=== PATIENT | male | born 1950 | race Caucasian/White ===

== ENCOUNTER 2024-04-06 13:22 | Outpatient (CLI) | payer MEDICARE, SELFPAY ==
--- NOTE | ~2024-04-06 | XR_ITS ---
EXAMINATION: XR knee LT min 4V DATE: 04/06/2024 13:56 INDICATION: Left knee pain. TECHNIQUE: 4 views of left knee including standing views were obtained. COMPARISON: None. FINDINGS: Alignment is normal. No fracture. There is moderate osteoarthritis of medial compartment an d mild osteoarthritis of lateral and patellofemoral compartments. There is a small knee joint effusio n. IMPRESSION: 1. Moderate left knee osteoarthritis. 2. Small left knee joint effusion. Reviewed, dictated and finalized at location A. CLERK
== END 2024-04-06 13:23 | disposition home or self-care (01) ==
PROVIDERS: PCP Internal Medicine; Visit Provider Orthopaedic Surgery
DX: M17.12 Unilateral primary osteoarthritis, left knee (principal); M25.462 Effusion, left knee
CPT/HCPCS: 73564

== ENCOUNTER 2024-07-16 10:15 | Outpatient (CLI) | payer MEDICARE, SELFPAY ==
--- OUTSIDE RECORDS SUMMARY | 2024-07-16 11:38 | XMS_ITS | Referral Summary ---
Author Organization [facility] Address [address] [place] [address] Care Team Providers Care Maintenance Analyst Name Role Phone Chapito Galvez MD Primary Care Provider + [phone] Allergies Active Allergy Reactions Criticality Noted Date Comments Adhesive Blisters,Redness High 09/02/2017 bli Latex, Natural Rubber 11/24/2018 Added based on information entered during case entry, please review and add reactions, type, and severity as needed Morphine Anxiety,Other (See comments) Low 09/30/2015 [place] Heat all over my body Medications blood glucose diagnostic (TRUE METRIX GLUCOSE TEST STRIP) strip Test once daily. DX E11.9 8 Active zolpidem (AMBIEN) 5 mg tabletIndicatio ns:Sleep-Onset Insomnia Take 5 mg by mouth nightly as needed 8 Active alogliptin 25 mg tabletIndicatio ns:type 2 diabetes mellitus every morning 9 Active propranolol XL (INNOPRAN XL) 80 mg 24 hr capsuleIndicati ons:hypertensio n Take 80 mg by mouth nightly 0 Active metFORMIN (GLUCOPHAGE) 500 mg tabletIndicatio ns:type 2 diabetes mellitus TAKE ONE TABLET BY MOUTH TWICE A DAY WITH FOOD 0 Active losartan (COZAAR) 100 mg tabletIndicatio ns:hypertension Take 100 mg by mouth nightly 0 Active chlorthalidone 25 mg tabletIndicatio ns:hypertension Take 25 mg by mouth every morning 0 Active blood glucose diagnostic strip Test once daily. DX E11.9 8 Active glimepiride (AMARYL) 1 mg tabletIndicatio ns:type 2 diabetes mellitus Take 1 mg by mouth leadership development manager before breakfast 0 Active aspirin 81 mg enteric coated tabletIndicatio ns:prevention of thrombosis Take 1 tablet (81 mg total) by mouth daily 90 tablet 1 Active atorvastatin (LIPITOR) 40 mg tabletIndicatio ns:coronary artery disease Take 1 tablet (40 mg total) by mouth nightly 90 tablet 1 Active clopidogreL (PLAVIX) 75 mg tablet Take 1 tablet (75 mg total) by mouth daily 90 tablet 1 Active Active Problems Problem Noted Date Diagnosed Date Chest pain 09/27/2020 Assessment & Plan (09/30/2020 8:57 AM CDT): Atypical in nature, ECG, trops unremarkable. - +Stress ECHO 09/27 - no tele events, CTM - Appreciate Cards recs: added asa 81mg, changed pravastatin to atorva 40mg daily - C on 09/29 with NESSA to LAD - Pt will dc on ASA, plavix, and atorva - Cards follow-up scheduled Assessment & Plan (09/29/2020 9:11 AM CDT): Atypical in nature, ECG, trops unremarkable. - +Stress ECHO 09/27 - no tele events, CTM - Appreciate Cards recs: added asa 81mg, changed pravastatin to atorva 40mg daily - NPO for [facility] today Assessment & Plan (09/28/2020 9:44 AM CDT): -atypical in nature ECG, trops unremarkable +Stress ECHO yesterday -chest pain again overnight, self limiting -no tele events, CTM -Appreciate Cards recs: added asa 81mg, changed pravastatin to atorva 40mg daily -NPO tonight for [facility] in am DMII (diabetes mellitus, type 2) 09/27/2020 Assessment & Plan (09/30/2020 8:56 AM CDT): Last A1c 7.1% - holding orals while inpatient - extra low dose SSI ordered with meals Assessment & Plan (09/29/2020 9:12 AM CDT): Last A1c 7.1% - holding orals while inpatient - extra low dose SSI ordered with meals Assessment & Plan (09/28/2020 9:42 AM CDT): Last A1c 7.1% -holding orals while inpatient POC glucose WNL-add LDSSI if needed HTN (hypertension) 09/27/2020 Assessment & Plan (09/30/2020 8:56 AM CDT): Cont losartan held propranolol for stress test. Resume at discharge - Held diuretics for cath. Resume at discharge Assessment & Plan (09/29/2020 9:13 AM CDT): Cont losartan held propranolol for stress test - hold diuretic today for cath Assessment & Plan (09/28/2020 9:43 AM CDT): Cont losartan held propranolol for stress test -will hold diuretic tomorrow for cath Hyperlipidemia 09/27/2020 Assessment & Plan (09/30/2020 8:56 AM CDT): -gemfibrozil and pravastatin->changed to high intensity atorva 40mg daily Assessment & Plan (09/29/2020 9:19 AM CDT): -gemfibrozil and pravastatin->changed to high intensity atorva 40mg daily Assessment & Plan (09/28/2020 9:43 AM CDT): -gemfibrozil and pravastatin->changed to high intensity atorva 40mg daily Acute chest pain 09/26/2020 Overview (09/29/2020): Added automatically from request for surgery [id number] Otosclerosis of right ear 04/04/2020 Overview (04/04/2020): Added automatically from request for surgery [id number] Assessment & Plan (05/09/2020 11:53 AM AUTOMATIC CORN GRINDER OPERATOR): Doing well. RTC 3 mos with audio. Consider amplification depending on audio result. Otorrhea of left ear 11/21/2018 Assessment & Plan (11/21/2018 2:27 PM CDT): Left ear tube removed. RTC prior to surgery to ensure the TM is healed. Ciprodex one week. Mixed conductive and sensorineural hearing loss, bilateral 06/27/2018 Assessment & Plan (03/30/2019 12:26 PM AUTOMATIC CORN GRINDER OPERATOR): His ear fullness is much improved in his hearing is much better on the left. Return to clinic in 1 year with an audiogram. He may consider stapes surgery on the right side in the future Assessment & Plan (12/01/2018 10:36 AM CDT): Left otorrhea resolved. Tm healed. Ok for left stapes surgery on Tuesday. Otosclerosis I discussed otosclerosis with the patient. This is a disorder of bone remodeling that causes impaired movement of the 3rd middle ear bone(stapes). The problem is primarily mechanical and can be addressed by removing the stapes and replacing it with a prosthesis. The operation is successful 90-95% of the time, but there are risks. Profound sensorineural hearing loss is rare (1%) but serious. Other risks include ear drum perforation, facial nerve weakness and taste disturbance(chorda tympani). Taste disturbance is often temporary but can last for several months. The repair is meant to last lifelong, but hearing loss due to nerve hearing loss can still occur. Initial hearing will be muffled with packing in place and the final hearing result is usually not known until 10-12 weeks after the surgery. Imbalance after the surgery is common for several days. Severe vertigo or profound hearing loss should prompt a call to the office. Alternatives include observation and hearing aids. Assessment & Plan (09/13/2018 2:46 PM CDT): Left ear tube placed- no fluid. Will observe for next several weeks- may be otosclerosis. Assessment & Plan (09/11/2018 12:11 PM CDT): Plan left stapes surgery. Otosclerosis I discussed otosclerosis with the patient. This is a disorder of bone remodeling that causes impaired movement of the 3rd middle ear bone(stapes). The problem is primarily mechanical and can be addressed by removing the stapes and replacing it with a prosthesis. The operation is successful 90-95% of the time, but there are risks. Profound sensorineural hearing loss is rare (1%) but serious. Other risks include ear drum perforation, facial nerve weakness and taste disturbance(chorda tympani). Taste disturbance is often temporary but can last for several months. The repair is meant to last lifelong, but hearing loss due to nerve hearing loss can still occur. Initial hearing will be muffled with packing in place and the final hearing result is usually not known until 10-12 weeks after the surgery. Imbalance after the surgery is common for several days. Severe vertigo or profound hearing loss should prompt a call to the office. Alternatives include observation and hearing aids. Tinnitus, bilateral 06/27/2018 Social History Tobacco Use Types Packs/Day Years Used Date Smoking Tobacco: Never Smokeless Tobacco: Never Alcohol Use Standard Drinks/Week Comments Yes 2 (1 standard drink = 0.6 oz pur e alcohol) AUDIT-C Answer Date Recorded Q1: How often do you have a drink containing alc ohol? Monthly or less 09/29/2020 Q2: How many drinks containi ng alcohol do you have on a typical day when you are drinking? 1 or 2 09/29/2020 Q3: How often do you have si x or more drinks on one occasion? Less than monthly 09/29/2020 Sex and Gender Information Value Date Recorded Sex Assigned at Not on file Legal Sex Male 12:57 PM AUTOMATIC CORN GRINDER OPERATOR Gender Identity Not on file Sexual Orientation Not on file Last Filed Vital Signs Vital Sign Reading Time Taken Comments Blood Pressure 152/95 09/30/2020 12:01 PM CDT Pulse 90 09/30/2020 12:01 PM CDT Temperature 36.3 C (97.3 F) 09/30/2020 11:00 AM CDT Respiratory Rate 20 09/30/2020 12:0 1 PM CDT Oxygen Saturation 96% 09/30/2020 12: 01 PM CDT Inhaled Oxygen Concentration - - Weight 104.7 kg (230 lb 14.4 oz) 09/29/2020 7:50 PM CDT Height 177.8 cm (5' 10 ) 09/27/2020 9:10 AM CDT Body Mass Index 33.13 09/27/2020 9:10 AM CDT Plan of Treatment Not on file Medical Devices Implanted Type Area Gym Instructor Device Identifier Shelf Expiration Date Model / Serial / Lot Daig Chris[employer] [id number] Angio-Seal Evolution 6fr .035in Guidewire Bypass Tube Suture - [id number] - [id number] Implanted:Qty: 1 on 09/29/[address] MD at [facility] Collagen [employer] Chris 06/22/2021 [id number] / [id number] / [id number] Medtronic Usa [employer] X [id number] Resolute [place] 3mm 2.1-2.7fr 34mm 140cm Rapid Exchange Radiopaque - [id number] - [id number] Implanted:Qty: 1 on 09/29/[address] MD at [facility] Stent Medtronic Inc 07/19/2022 [id number] / [id number] / [id number] [facility] 468-450 Eclipse .6mm 4.5mm Piston Otology Nitinol Fluoroplastic - [id number] Implanted:Qty: 1 on 12/04/2018 by Tr Sharp MD at [facility] Left: Stapes [facility] [id number] 11/18/2023 468-450 / / [id number] Implantech -700-05 Alliedsil 3x2in Nonreinforced Permanent Implantable Thk.005in - [id number] Implanted:Qty: 1 on 12/04/2018 by Tr Sharp MD at [facility] Left: Ear Implantech 04/06/2023-700-0 5 / / [id number] [facility] 473-450 Piston Otology 5mm .5mm Eclipse 360d Incus Wide Flat Ribbon - [id number] Implanted:Qty: 1 on 04/28/2020 by Tr Sharp MD at [facility] Right: [facility] [id number] 07/20/2024 [facility]-607 / / [id number] Insurance [facility]ICARE [facility] [place] [id number] MEDICARE [facility] SUPPLEMENT [place] [address] Advance Directives For more information, please contact: [phone] * Full Code (Latest Code Status on File) Date Activated Date Inactivated Comments 09/27/2020 1:00 AM 09/30/2020 4:13 PM Care Teams Maintenance Analyst Relationship Specialty Start Date End Date Chapito Galvez MD 2 [facility] [address] [address] PCP - General 08/03/16
--- OUTSIDE RECORDS SUMMARY | 2024-07-16 11:38 | XMS_ITS | Clinical Summary ---
Author Organization [facility] Address [address] [place] [address] Care Team Providers Care Central Office Maintainer Name Role Phone Chapito Galvez MD Primary Care Provider + [phone] Allergies Active Allergy Reactions Criticality Noted Date Comments Adhesive Blisters,Redness High 09/02/2017 bli Latex, Natural Rubber 11/24/2018 Added based on information entered during case entry, please review and add reactions, type, and severity as needed Morphine Anxiety,Other (See comments) Low 09/30/2015 [place] Heat all over my body Medications blood [...] diabetes mellitus Take 1 mg by mouth seismograph operator helper before breakfast 0 Active aspirin 81 mg [...] to atorva 40mg daily - NPO for [facility] today Assessment & Plan (09/28/2020 9:44 AM CDT): -atypical in nature ECG, trops unremarkable +Stress ECHO yesterday -chest pain again overnight, self limiting -no tele events, CTM -Appreciate Cards recs: added asa 81mg, changed pravastatin to atorva 40mg daily -NPO tonight for [facility] in am DMII (diabetes mellitus, type 2) [...] (09/29/2020): Added automatically from request for surgery [id number] Otosclerosis of right ear 04/04/2020 Overview (04/04/2020): Added automatically from request for surgery [id number] Assessment & Plan (05/09/2020 11:53 AM ASSISTANT DIRECTOR OF ADMISSIONS): Doing well. RTC 3 mos with audio. Consider amplification depending on audio result. Otorrhea of left ear 11/21/2018 Assessment & Plan (11/21/2018 2:27 PM CDT): Left ear tube removed. RTC prior to surgery to ensure the TM is healed. Ciprodex one week. Mixed conductive and sensorineural hearing loss, bilateral 06/27/2018 Assessment & Plan (03/30/2019 12:26 PM ASSISTANT DIRECTOR OF ADMISSIONS): His ear fullness is much improved in [...] observation and hearing aids. Tinnitus, bilateral 06/27/2018 Surgical History Surgery Date Site/Laterality Comments ROTATOR CUFF REPAIR Rotator Cuff Repair - (Added by R-B Acquisition Conv) [place] TRURL ELECTROSURG RESCJ PROSTATE BLEED COMPLETE Transurethral Resection Of Prostate (TURP) - (Added by R-B Acquisition Conv) REPLACEMENT TOTAL KNEE 05/23/2016 - 05/22/2017 Right Partial knee replacement Medical History Medical History Date Comments Personal history of other di seases of the circulatory system History of hypertension - (A dded by R-B Acquisition Conv) Personal history of other me ntal and behavioral disorders History of depression - (Add ed by TW Conv) Hypertension Hypercholesterolemia Diabetes (HCC) Ear problems [place] (hearing loss) Tinnitus [place] (hard of hearing) Type 2 diabetes mellitus (HCC) Family History Medical History Relation Name Comments Prostate cancer Brother Prostate Can cer - (Added by R-B Acquisition Conv) Anesthesia problems Neg Hx Relation Name Status Comments Brother Social History Tobacco Use Types Packs/Day Years [...] on file Legal Sex Male 12:57 PM ASSISTANT DIRECTOR OF ADMISSIONS Gender Identity Not on file Sexual Orientation Not on file Obstetrics History Last Filed Vital Signs Vital Sign Reading [...] on file Medical Devices Implanted Type Area Service Promoter Salesperson Device Identifier Shelf Expiration Date Model / Serial / Lot Daig Chris[employer] [id number] Angio-Seal Evolution 6fr .035in Guidewire Bypass Tube Suture - [id number] - [id number] Implanted:Qty: 1 on 09/29/[address] MD at [facility] Collagen [employer] Chris 06/22/2021 [id number] / [id number] / [id number] Medtronic Usa [employer] X [id number] Resolute [place] 3mm 2.1-2.7fr 34mm 140cm Rapid Exchange Radiopaque - [id number] - [id number] Implanted:Qty: 1 on 09/29/[address] MD at [facility] Stent Medtronic Inc 07/19/2022 [id number] / [id number] / [id number] [facility] 468-450 Eclipse .6mm 4.5mm Piston Otology Nitinol Fluoroplastic - [id number] Implanted:Qty: 1 on 12/04/2018 by Tr Sharp MD at [facility] Advanced [employer] Left: Stapes [facility] [id number] 11/18/2023 468-450 / / [id number] Implantech -700-05 Alliedsil 3x2in Nonreinforced Permanent Implantable Thk.005in - [id number] Implanted:Qty: 1 on 12/04/2018 by Tr Sharp MD at [facility] Left: Ear Implantech 04/06/2023-700-0 5 / / [id number] [facility] 473-450 Piston Otology 5mm .5mm Eclipse 360d Incus Wide Flat Ribbon - [id number] Implanted:Qty: 1 on 04/28/2020 by Tr Sharp MD at [facility] Right: Ear [employer] [id number] 07/20/2024 473-450 / / [id number] Insurance MEDICARE [facility] Address: [address] [address] [place] [address] [facility] SUPPLEMENT [place] [id number] MEDICARE [facility] SUPPLEMENT [place] [id number] Advance Directives For more information, please contact: [phone] * Full Code (Latest Code Status on File) Date Activated Date Inactivated Comments 09/27/2020 1:00 AM 09/30/2020 4:13 PM Care Teams Central Office Maintainer Relationship Specialty Start Date End Date Chapito Galvez MD [address] [facility] [address] [facility] - General 08/03/16
--- OUTSIDE RECORDS SUMMARY | 2024-07-16 11:38 | XMS_ITS | Encounter Summary ---
Author Organization [facility] Address [address] [place] [address] Phone Care Team Providers Care Internet Manager Name Role Phone Chapito Galvez MD Primary Care Provider [phone] Sharad Yates MD Unavailable Nirali Parker RN Unavailable Unavaila Osman Zamarripa MD Unavailable Delia Ornelas VIDEO PRODUCTION SPECIALIST, BARN HAND Unavailable [phone] Selam Gomez VIDEO PRODUCTION SPECIALIST, BARN HAND Unavailable Reason for Visit * Reason Comments Medication Refill Encounter Details Date Type Department Care Team (Late st Contact Info) Description 11/01/2023 Refill [facility] Medical Group - Family Medicine [facility] #[address] [place] [address] Chapito Galvez MD #[address] [address] Medication Refill Social History Tobacco Use Types Packs/Day Years Used Date Smoking Tobacco: Never Smokeless Tobacco: Never Alcohol Use Standard Drinks/Week Comments Yes 0 (1 standard drink = 0.6 oz pur e alcohol) occasional PHQ-2 Answer Date Recorded Total Score - Questions 1-9 0 08/21 Education Answer Date Recorded What is the highest level of school you have completed or the highest degree you have received? 12th grade 01/05/2023 Sexually Active Control Partners Comments Yes Female Sex and Gender Information Value Date Recorded Sex Assigned at Male 01/04/2023 9:19 AM CDT Legal Sex Male 8:55 PM CDT Gender Identity Male 01/04/2023 9:19 AM CDT Sexual Orientation Not on file documented as of this encounter Miscellaneous Notes * Telephone Encounter - IvisEnzovladislav Campos RN - 11/01/2023 10:00 AM CDT Medication[facility]) [facility] Refill Standing Order for Pediatricand Adult Patients. Requested Prescriptions Pending Prescriptions Disp Refills losartan (COZAAR) 100 MG Tablet [Pharmacy Med Name: LOSARTAN POTASSIUM 100MG TABS] 90 Tablet 1 Sig: TAKE ONE TABLET BY MOUTH EVERY DAY ARB Protocol Passed - 11/01/2023 9:10 AM Passed - Serum potassium on record in past 12 months POTASSIUM Date Value Ref Range Status 09/08/2023 3.7 3.5 - 5.1 mmol/L Final Passed - BP on record in the past year Clinician-entered: BP Readings from Last 3 Encounters: 09/08/23 138/74 07/21/23 132/90 07/14/23 148/84 Patient-entered: No data recorded Passed - Visit with relevant provider in past year or upcoming 90 days Recent Visits Date Type Provider Dept 09/08/23 Office Visit Chapito Galvez MD [facility] 05/09/23 Office Visit Chapito Galvez MD [facility] 01/05/23 Office Visit Chapito Galvez MD [facility] Showing recent visits within past 365 days and meeting all other requirements Future Appointments Date Type Provider Dept 01/10/24 Appointment Chapito Galvez MD [facility] Showing future appointments within next 90 days and meeting all other requirements Passed - GFR on record in past 12 months GFR, EST. NONAFRICAN Date Value Ref Range Status 09/08/2023 55 (L) >=60 Final chlorthalidone (HYGROTON) 25 MG Tablet [Pharmacy Med Name: CHLORTHALIDONE 25MG TABS] 90 Tablet 1 Sig: TAKE ONE TABLET BY MOUTH EVERY DAY Diuretics Protocol Passed - 11/01/2023 9:10 AM Passed - Serum potassium on record in past 12 months POTASSIUM Date Value Ref Range Status 09/08/2023 3.7 3.5 - 5.1 mmol/L Final Passed - Serum sodium on record in past 12 months SODIUM Date Value Ref Range Status 09/08/2023 137 136 - 145 mmol/L Final Passed - Blood pressure on record in past 12 months Clinician-entered: BP Readings from Last 3 Encounters: 09/08/23 138/74 07/21/23 132/90 07/14/23 148/84 Patient-entered: No data recorded Passed - Visit with relevant provider in past 12 months or upcoming 90 days Recent Visits Date Type Provider Dept 09/08/23 Office Visit Chapito Galvez MD [facility] 05/09/23 Office Visit Chapito Galvez MD [facility] 01/05/23 Office Visit Chapito Galvez MD [facility] Showing recent visits within past 365 days and meeting all other requirements Future Appointments Date Type Provider Dept 01/10/24 Appointment Chapito Galvez MD [facility] Showing future appointments within next 90 days and meeting all other requirements Passed - GFR on record in past 12 months GFR, EST. NONAFRICAN Date Value Ref Range Status 09/08/2023 55 (L) >=60 Final documented in this encounter Plan of Treatment Upcoming Encounters Date Type Department Care Team (Late st Contact Info) Description 09/12/2024 8:00 AM CDT Lab [facility] #[address] [facility] [place] [address] Lab [place] Lab/Ancillary 09/18/2024 9:30 AM CDT Office Visit [facility] Medical Group - Cardiology - [place] #2 [place] [address] Delia Ornelas APRN, BARN HAND #2 [facility], [address] [place] [address] 09/25/2024 8:30 AM CDT Office Visit [facility] Medical Group - Family Medicine - [place] #2 [place] [address] Chapito Galvez MD #2 [facility] [address] [place] [address] documented as of this encounter Visit Diagnoses Not on filedocumented in this encounter Additional Health Concerns Infection Onset Date Last Indicated Resolved Time Respiratory Rule-Out 06/29/2024 06/29/2024 025 9:28 AM 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 COVID - 19 06/29/2024 06/29/2024 06/29/2024 9:27 AM 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 COVID - 19 Confirmed 06/29/2024 06/29/2024 Assessment Noted Time PHQ-9 Depression Total Score: 0 09/08/19 24 8:24 AM CDT documented as of this encounter Care Teams Internet Manager Relationship Specialty Start Date End Date Chapito Galvez MD [facility] [address] [place] [address] PCP - General Family Medicine 04/01/15 Sharad Yates MD #2 [facility] [address] [place] [address] Consulting Physician Cardiovascular Disease - Cardiology 02/17/22 04/25/24 Nirali Gruber RN [place] Registered Nurse Cardiology 03/08/22 04/25/24 Osman Gordon MD [facility] [address] [place] [address] Consulting Physician Colon and Rectal Surgery 06/24/23 Delia Ornelas APRN, BARN HAND #2 [facility] [address] [facility] [address] [place] [address] Nurse Practitioner Cardiology 07/13/23 Selam Gomez APRN, BARN HAND #[address] [place] [address] Nurse Practitioner Cardiology 05/08/24 documented as of this encounter
--- OUTSIDE RECORDS SUMMARY | 2024-07-16 11:38 | XMS_ITS | Encounter Summary ---
Author Organization [facility] Address [address] [place] [address] Phone Care Team Providers Care Bi Solutions Architect Name Role Phone Chapito Galvez MD Primary Care Provider Sharad Yates MD Unavailable Nirali Parker RN Unavailable Unavaila Osman Zamarripa MD Unavailable Delia Ornelas TRASH MAN, ORTHOPEDICS TEACHER Unavailable [phone] Selam Gomez TRASH MAN, ORTHOPEDICS TEACHER Unavailable Reason for Visit * Reason Comments Medication Refill Encounter Details Date Type Department Care Team (Late st Contact Info) Description 01/28/2021 Refill [facility] Medical Group - Family Medicine [facility] #2 [place] [address] Chapito Galvez MD #[address] [address] Medication Refill Social History Tobacco Use Types Packs/Day Years Used Date Smoking Tobacco: Never Smokeless Tobacco: Never Alcohol Use Standard Drinks/Week Comments Yes 0 (1 standard drink = 0.6 oz pur e alcohol) rarely PHQ-2 Answer Date Recorded Total Score - Questions 1-9 0 12/21 Sexually Active Control Partners Comments Yes Female Sex and Gender Information Value Date Recorded Sex Assigned at Male 01/04/2023 9:19 AM CDT Legal Sex Male 8:55 PM CDT Gender Identity Male 01/04/2023 9:19 AM CDT Sexual Orientation Not on file COVID-19 Exposure Response Date Recorded In the last month, have you been in contact with someone who was confirmed or suspected to have Coronavirus / COVID-19? No / Unsure 01/05/2021 7:11 AM CDT documented as of this encounter Miscellaneous Notes * Telephone Encounter - Chapito Galvez MD - 01/29/2021 11:14 AM CDT Prescription approved. Please call in * Telephone Encounter - Andreea Canas RN - 01/29/2021 10:54 AM CDT Per nursing clinical judgement, provider to review and approve the medication(s) order(s) if appropriate. Requested Prescriptions Pending Prescriptions Disp Refills metFORMIN (GLUCOPHAGE) 500 MG Tablet [Pharmacy Med Name: METFORMIN HCL 500MG TABS] 180 Tablet 2 Sig: TAKE ONE TABLET BY MOUTH TWICE A DAY WITH FOOD Biguanides Protocol Passed - 01/29/2021 10:53 AM Passed - Visit with relevant provider in past 6 months or upcoming 90 days Recent Visits Date Type Provider Dept 01/05/21 Office Visit Chapito Galvez MD [facility] 10/06/20 Office Visit Chapito Galvez MD [facility] 08/25/20 Office Visit Chapito Galvez MD [facility] Showing recent visits within past 182 days and meeting all other requirements Future Appointments No visits were found meeting these conditions. Showing future appointments within next 90 days and meeting all other requirements Passed - HgA1C on record in past 6 months HGB-A1C Date Value Ref Range Status 12/23/2020 6.8 (H) 4.0 - 6.0 % Final Passed - GFR on record in past 6 months GFR, EST. NONAFRICAN Date Value Ref Range Status 12/23/2020 >60 >=60 Final propranolol (INDERAL LA) 80 MG CAPSULE SR 24 HR [Pharmacy Med Name: PROPRANOLOL HCL ER 80MG CP24] 90 Capsule 2 Sig: TAKE ONE CAPSULE BY MOUTH EVERY DAY Beta-Blockers Protocol Passed - 01/29/2021 10:53 AM Passed - BP on record in the past year Clinician-entered: BP Readings from Last 3 Encounters: 01/05/21 126/78 10/06/20 108/60 08/25/20 118/78 Patient-entered: No data recorded Passed - Visit with relevant provider in past 12 months or upcoming 90 days Recent Visits Date Type Provider Dept 01/05/21 Office Visit Chapito Galvez MD [facility] 10/06/20 Office Visit Chapito Galvez MD [facility] 08/25/20 Office Visit Chapito Galvez MD [facility] 04/22/20 Office Visit Chapito Galvez MD [facility] Showing recent visits within past 365 days and meeting all other requirements Future Appointments No visits were found meeting these conditions. Showing future appointments within next 90 days and meeting all other requirements documented in this encounter Plan of Treatment Upcoming Encounters Date Type Department Care Team (Late st Contact Info) Description 09/12/2024 8:00 AM CDT Lab [facility] #2 [facility] [address] [place] [address] [facility] [place] Lab/Ancillary 09/18/2024 9:30 AM CDT Office Visit [facility] Medical Group - Cardiology - [place] #[address] [place] [address] Delia Ornelas APRN, ORTHOPEDICS TEACHER #2 [facility], [address] [place] [address] 09/25/2024 8:30 AM CDT Office Visit [facility] Medical Group - Family Medicine - [place] #2 [place] [address] Chapito Galvez MD #2 [facility] [address] [place] [address] documented as of this encounter Visit Diagnoses Not on filedocumented in this encounter Additional Health Concerns Infection Onset Date Last Indicated Resolved Time Respiratory Rule-Out 06/29/2024 06/29/2024 025 9:28 AM 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 06/29/2024 06/29/2024 06/29/2024 9:27 AM 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 Confirmed 06/29/2024 06/29/2024 Assessment Noted Time PHQ-9 Depression Total Score: 0 01/06/20 21 7:24 AM CDT documented as of this encounter Care Teams Bi Solutions Architect Relationship Specialty Start Date End Date Chapito Galvez MD #2 [facility] [address] [place] [address] PCP - General Family Medicine 04/01/15 Sharad Yates MD #2 [facility] [address] [place] [address] Consulting Physician Cardiovascular Disease - Cardiology 02/17/22 04/25/24 Nirali Gruber RN [place] Registered Nurse Cardiology 03/08/22 04/25/24 [facility] MD [facility] [address] [place] [address] Consulting Physician Colon and Rectal Surgery 06/24/23 Delia Ornelas APRN, ORTHOPEDICS TEACHER #2 [facility] [place] [address] [place] [address] Nurse Practitioner Cardiology 07/13/23 Selam Gomez APRN, ORTHOPEDICS TEACHER #2 [place] [address] Nurse Practitioner Cardiology 05/08/24 documented as of this encounter
--- OUTSIDE RECORDS SUMMARY | 2024-07-16 11:39 | XMS_ITS | Encounter Summary ---
Author Organization [facility] Address [address] [place] [address] Phone Care Team Providers Care Vice President Sales And Marketing Name Role Phone Chapito Galvez MD Primary Care Provider [phone] Sharad Yates MD Unavailable Nirali Parker RN Unavailable Unavaila Osman Zamarripa MD Unavailable Delia Ornelas B2B APPOINTMENT SETTER, HAZARDOUS WASTE MATERIAL TECHNICIAN Unavailable [phone] Selam Gomez B2B APPOINTMENT SETTER, HAZARDOUS WASTE MATERIAL TECHNICIAN Unavailable Reason for Visit * Reason Comments Medication Refill Encounter Details Date Type Department Care Team (Late st Contact Info) Description 05/04/2022 Refill [facility] Medical Group - Family Medicine [facility] #2 [place] [address] Chapito Galvez MD #[address] [address] Medication Refill Social History Tobacco Use Types Packs/Day Years Used Date Smoking Tobacco: Never Smokeless Tobacco: Never Alcohol Use Standard Drinks/Week Comments Yes 0 (1 standard drink = 0.6 oz pur e alcohol) rarely PHQ-2 Answer Date Recorded Total Score - Questions 1-9 0 03/0 12/2021 Sexually Active Control Partners Comments Yes Female Sex and Gender Information Value Date Recorded Sex Assigned at Male 01/04/2023 9:19 AM CDT Legal Sex Male 8:55 PM CDT Gender Identity Male 01/04/2023 9:19 AM CDT Sexual Orientation Not on file COVID-19 Exposure Response Date Recorded In the last 10 days, have yo u been in contact with someone who was confirmed or suspected to have Coronavirus/COVID-19? No / Unsure 05/03/2022 7:49 AM LYMPHEDEMA THERAPIST documented as of this encounter Miscellaneous Notes * Telephone Encounter - Zayda Langston RN - 05/04/2022 1:33 PM CST Medication failed the protocol, provider to review and approve the medication order if appropriate. Requested Prescriptions Pending Prescriptions Disp Refills SM Aspirin Adult Low Strength 81 MG Tablet Delayed Response [Pharmacy Med Name: SM ASPIRIN ADULT LOW STRENG 81 TBEC] 100 Tablet 1 Sig: TAKE ONE TABLET BY MOUTH EVERY DAY Platelet Inhibitors Protocol Failed - 05/04/2022 9:12 AM Failed - CBC on record in the past year WBC Date Value Ref Range Status 09/30/2015 8.99 4.00 - 12.00 10(3)/mcL Final RBC Date Value Ref Range Status 09/30/2015 4.82 4.40 - 5.80 10(6)/mcL Final HEMATOCRIT (HCT) Date Value Ref Range Status 09/30/2015 41.3 38.0 - 50.0 % Final HEMOGLOBIN (HGB) Date Value Ref Range Status 09/30/2015 14.8 13.0 - 16.5 g/dL Final MCV Date Value Ref Range Status 09/30/2015 85.7 82.0 - 96.0 fL Final MCH Date Value Ref Range Status 09/30/2015 30.7 26.0 - 32.0 pg Final MCHC Date Value Ref Range Status 09/30/2015 35.8 31.0 - 36.0 g/dL Final Passed - Visit with relevant provider in past year or upcoming 90 days Recent Visits Date Type Provider Dept 03/05/22 Office Visit Chapito Galvez MD [facility] 01/08/22 Office Visit Chapito Galvez MD [facility] 09/09/21 Office Visit Chapito Galvez MD [facility] 07/28/21 Office Visit Karen Meredith APRN, HAZARDOUS WASTE MATERIAL TECHNICIAN [facility] 05/11/21 Office Visit Chapito Galvez MD [facility] Showing recent visits within past 365 days and meeting all other requirements Future Appointments Date Type Provider Dept 07/07/22 Appointment [facility] MD [facility] Showing future appointments within next 90 days and meeting all other requirements HEDEMA THERAPIST documented in this encounter Plan of Treatment Upcoming Encounters Date Type Department Care Team (Late st Contact Info) Description 09/12/2024 8:00 AM CDT Lab [facility] PHYSICIAN [facility] #2 [facility] [address] [place] [address] Lab [place] Lab/Ancillary 09/18/2024 9:30 AM CDT Office Visit [facility] Medical Group - Cardiology - [place] #2 [place] [address] Delia Ornelas APRN, HAZARDOUS WASTE MATERIAL TECHNICIAN #2 [facility], [address] [place] [address] 09/25/2024 8:30 AM CDT Office Visit [facility] Medical Group - Family Medicine - [place] #2 [place] [address] Chapito Galvez MD #2 [facility] [address] [place] [address] documented as of this encounter Visit Diagnoses Not on filedocumented in this encounter Additional Health Concerns Infection Onset Date Last Indicated Resolved Time Respiratory Rule-Out 06/29/2024 06/29/2024 025 9:28 AM LYMPHEDEMA THERAPIST COVID - 19 06/29/2024 06/29/2024 06/29/2024 9:27 AM LYMPHEDEMA THERAPIST COVID - 19 Confirmed 06/29/2024 06/29/2024 Assessment Noted Time PHQ-9 Depression Total Score: 0 07/29/19 22 8:18 AM LYMPHEDEMA THERAPIST documented as of this encounter Care Teams Vice President Sales And Marketing Relationship Specialty Start Date End Date Chapito Galvez MD #2 [facility] [address] [place] [address] PCP - General Family Medicine 04/01/15 Sharad Yates MD #2 [facility] [address] [place] [address] Consulting Physician Cardiovascular Disease - Cardiology 02/17/22 04/25/24 Nirali Gruber RN [place] Registered Nurse Cardiology 03/08/22 04/25/24 Osman Gordon MD #2 [facility] [address] [place] [address] Consulting Physician Colon and Rectal Surgery 06/24/23 Delia Ornelas APRN, HAZARDOUS WASTE MATERIAL TECHNICIAN #2 [facility] [address] [place] [address] Nurse Practitioner Cardiology 07/13/23 Selam Gomez APRN, HAZARDOUS WASTE MATERIAL TECHNICIAN #2 [place] [address] Nurse Practitioner Cardiology 05/08/24 documented as of this encounter
--- OUTSIDE RECORDS SUMMARY | 2024-07-16 11:39 | XMS_ITS | Encounter Summary ---
Author Organization [facility] Address [address] [place] [address] Phone Care Team Providers Care Electrical Engineering Technologist Name Role Phone Chapito Galvez MD Primary Care Provider Sharad Yates MD Unavailable Nirali Parker RN Unavailable Unavaila Osman Zamarripa MD Unavailable Delia Ornelas SIDE HEMMER, SENIOR BUSINESS BROKER Unavailable [phone] Selam Gmoez SIDE HEMMER, SENIOR BUSINESS BROKER Unavailable Reason for Visit * Reason Comments Medication Refill Encounter Details Date Type Department Care Team (Late st Contact Info) Description 01/13/2021 Refill [facility] Medical Group - Family Medicine [facility] #2 [place] [address] Chapito Galvez MD #[address] [address] Medication Refill Social History Tobacco Use Types [...] Telephone Encounter - Chapito Galvez MD - 01/13/2021 1:48 PM CDT Prescription approved. Please call in * Telephone Encounter - Zayda Langston RN - 01/13/2021 1:38 PM CDT Medication failed the protocol, provider to review and approve the medication order if appropriate. Requested Prescriptions Pending Prescriptions Disp Refills citalopram (CeleXA) 10 MG Tablet [Pharmacy Med Name: CITALOPRAM HYDROBROMIDE 10MG TABS] 90 Tablet 1 Sig: TAKE ONE TABLET BY MOUTH EVERY DAY Citalopram (Celexa) (6 Month Refill Only) Protocol Failed - 01/13/2021 9:26 AM Failed - Patient has established therapy with Citalopram for at least 6 months Passed - Citalopram dose is less than or equal to 40mg / day Passed - Visit with relevant provider in past 6 months or upcoming 90 days Recent Visits Date Type Provider Dept 01/05/21 Office Visit Chapito Galvez MD [facility] 10/06/20 Office Visit Chapito Galvez MD [facility] 08/25/20 Office Visit Chapito Galvez MD [facility] Showing recent visits within past 182 days and meeting all other requirements Future Appointments No visits were found meeting these conditions. Showing future appointments within next 90 days and meeting all other requirements Passed - Has an encounter in the past 6 months with a depression, anxiety, adjustment disorder, OCD, or PTSD visit diagnosis documented in this encounter Plan of Treatment Upcoming Encounters Date Type Department Care Team (Late st Contact Info) Description 09/12/2024 8:00 AM CDT Lab [facility]2 [place] [address] [place] [address] [facility] Lab/Ancillary 09/18/2024 9:30 AM CDT [facility] - [place] #2 [place] [address] Delia Ornelas APRN, SENIOR BUSINESS BROKER #2 COUNTS INCLUDE 234 BEDS AT [facility] [place] [facility], [address] [place] [address] 09/25/2024 8:30 AM CDT Office Visit [facility] Medical Group - Family Medicine - [place] #2 [place] [address] Chapito Galvez MD #[address] [address] documented as of this encounter Visit Diagnoses Not on filedocumented in this encounter Additional Health Concerns Infection Onset Date Last Indicated Resolved Time Respiratory Rule-Out 06/29/2024 06/29/2024 025 9:28 AM GARLAND MAKER COVID - 19 06/29/2024 06/29/2024 06/29/2024 9:27 AM GARLAND MAKER COVID - 19 Confirmed 06/29/2024 06/29/2024 Assessment Noted Time PHQ-9 Depression Total Score: 0 01/06/20 21 7:24 AM CDT documented as of this encounter Care Teams Electrical Engineering Technologist Relationship Specialty Start Date End Date Chapito Galvez MD #[address] [address] PCP - General Family Medicine 04/01/15 Sharad Yates MD #[address] [address] Consulting Physician Cardiovascular Disease - Cardiology 02/17/22 04/25/24 Muscarella, Nirali L, RN [place] Registered Nurse Cardiology 03/08/22 04/25/24 Osman Gordon MD #[address] [address] Consulting Physician Colon and Rectal Surgery 06/24/23 Delia Ornelas APRN, SENIOR BUSINESS BROKER #[address] [place] [address] [address] Nurse Practitioner Cardiology 07/13/23 Selam Gomez APRN, SENIOR BUSINESS BROKER #2 [place] [address] Nurse Practitioner Cardiology 05/08/24 documented as of this encounter
--- OUTSIDE RECORDS SUMMARY | 2024-07-16 11:39 | XMS_ITS | Clinical Summary ---
Author Organization [facility] Address [address] [address] Phone Care Team Providers Care Real Estate Acquisition Analyst Name Role Phone Chapito Galvez MD Primary Care Provider [phone] Osman Gordon MD Unavailable Delia Ornelas SHIRT LINE OPERATOR, PROGRAM PROJECT ANALYST Unavailable [phone] Selam Gomez SHIRT LINE OPERATOR, PROGRAM PROJECT ANALYST Unavailable Allergies Active Allergy Reactions Criticality Noted Date Comments Latex Other (see Comments) 04/01/2015 blisters Morphine Anxiety 09/30/2015 Other Unknown seasonal allergies Adhesive Tape Other (see Comments) 09/02/2017 blister Medications clopidogrel (PLAVIX) 75 MG Tablet TAKE ONE TABLET BY MOUTH EVERY DAY 90 Tablet 1 4 Active Blood Glucose Monitoring Suppl Device Diagnosis: Diabetes type 2 Blood testing frequency: 1-2 times a day 1 Each 4 Active Lancets Misc Use as directed 100 Lancet . 9 4 Active Glucose Blood Strip Diagnosis: Diabetes type 2 Blood testing frequency: 1-2 times a day 100 Strip 3 4 Active glimepiride (AMARYL) 1 MG Tablet Take 1 Tablet by mouth every morning. 90 Tablet 3 4 Active atorvastatin (LIPITOR) 40 MG Tablet Take 1 Tablet by mouth daily. 90 Tablet 1 4 Active pioglitazone (ACTOS) 30 MG Tablet Take 1 Tablet by mouth daily. 90 Tablet 1 4 Active citalopram (CeleXA) 10 MG Tablet Take 1 Tablet by mouth daily. 90 Tablet 1 4 Active chlorthalidone (HYGROTON) 25 MG Tablet TAKE 1 TABLET BY MOUTH EVERY DAY 90 Tablet 1 4 Active losartan (COZAAR) 100 MG Tablet TAKE 1 TABLET BY MOUTH EVERY DAY 90 Tablet 1 4 Active amLODIPine (NORVASC) 5 MG Tablet Take 1 Tablet by mouth daily. 90 Tablet 3 4 Active Ozempic, 2 MG/DOSE, 8 MG/3ML Solution Pen-injector INJECT 2 MG ONCE WEEKLY 3 mL 4 5 Active diclofenac (VOLTAREN) 75 MG Tablet Delayed Response 5 Active azithromycin (Zithromax Z-Kei) 250 MG Tablet Take 1 Tablet by mouth daily for 6 days. 2 tab(s) daily for 1 day, then 1 tab(s) daily for days 2-5. 6 Tablet 5 07/08/19 Active Problems Problem Noted Date Diagnosed Date Claudication in peripheral vascular disease 11/2023 Chest pain 10/20/2022 Paresthesias 10/20/2022 Type 2 diabetes mellitus treated without insulin 10/20/2022 Neuropathy 07/17/2018 Pain in both feet 07/17/2018 Primary insomnia 03/14/2018 Screening for colon cancer 07/11/2017 Oral phase dysphagia 07/11/2017 Acute pain of right knee 07/12/2016 Skin lesion of face 07/12/2016 Prostate cancer screening 07/05/2016 Type 2 diabetes mellitus, [facility] long-term current use of insulin 04/01/2015 Essential hypertension 04/01/2015 Hyperlipidemia 04/01/2015 Lipoma of back 04/01/2015 High cholesterol High triglycerides BPH (benign prostatic hyperplasia) HTN (hypertension) ED (erectile dysfunction) Carpal tunnel syndrome Encounters Date Type Department Care Team Description 07/02/2024 [facility]phone [facility] [address] [place] [address] Chapito Galvez MD Follow-up 06/29/2024 9:00 AM ELECTRICAL REPAIRER Office Visit [facility] [address] [place] [address] Monica Stephenson, SHIRT LINE OPERATOR, PROGRAM PROJECT ANALYST Acute cough (Primary Dx); COVID-19; Primary hypertension Discharge Disposition: Discharged to home or Selfcare 06/29/2024 Travel 06/28/2024 Nurse Triage [facility] [address] [place] [phone] Chapito Galvez MD Appointment; Cough; Fever; Sinus Problem 06/11/2024 [facility] [place] [address] Chapito Galvez MD Medication Refill 05/22/2024 9:00 AM ELECTRICAL REPAIRER Office Visit [facility] [address] [place] [address] Chapito Galvez MD Chronic pain of left knee (Primary Dx); Type 2 diabetes mellitus with stage 1 chronic kidney disease, without long-term current use of insulin (HCC); Essential hypertension; Coronary artery disease involving squaxin heart, unspecified vessel or lesion type, unspecified whether angina present; Prostate cancer screening Discharge Disposition: Discharged to home or Selfcare 05/22/2024 Telephone [facility] [address] [place] [address] Chapito Galvez MD 05/22/2024 Travel 05/18/2024 9:30 AM ELECTRICAL REPAIRER Clinical Support [facility] [address] [place] [address] [facility] Essential hypertension (Primary Dx) Discharge Disposition: Discharged to home or Selfcare 05/18/2024 9:20 AM ELECTRICAL REPAIRER Lab [facility] PHYSICIAN [facility] [address] [address] [facility] Lab/Ancillary Normocytic anemia Discharge Disposition: Discharged to home or Selfcare 05/18/2024 Travel 05/08/2024 1:30 PM ELECTRICAL REPAIRER Office Visit [facility] [address] [place] [address] Selam Gomez APRN, PROGRAM PROJECT ANALYST Essential hypertension (Primary Dx); Pure hypercholesterolemia; Type 2 diabetes mellitus without complication, without long-term current use of insulin (HCC); Preoperative cardiovascular examination; Coronary artery disease involving squaxin coronary artery of squaxin heart without angina pectoris Discharge Disposition: Discharged to home or Selfcare 05/08/2024 Travel 04/30/2024 [facility] [place] [address] Chapito Galvez MD 04/30/2024 [facility] [address] [place] [phone] Chapito Galvez MD Results 04/27/2024 7:50 AM ELECTRICAL REPAIRER Lab [facility] [address] [address] [facility] Lab/Ancillary Other iron deficiency anemia Discharge Disposition: Discharged to home or Selfcare 04/27/2024 Telephone [facility] [address] [place] [address] Chapito Galvez MD Form Completion 04/24/2024 8:51 AM ELECTRICAL REPAIRER - 04/24/2024 11:59 PM ELECTRICAL REPAIRER [facility] [address] [place] [address] Chapito Galvez MD Discharge Disposition: Discharged to home or Selfcare 04/24/2024 8:50 AM ELECTRICAL REPAIRER Lab [facility] [address] [address] [facility] Lab/Ancillary Type 2 diabetes mellitus treated without insulin (HCC); High cholesterol; Essential hypertension; Preop cardiovascular exam; Type 2 diabetes mellitus with stage 1 chronic kidney disease, without long-term current use of insulin (HCC) Discharge Disposition: Discharged to home or Selfcare 04/24/2024 8:35 AM ELECTRICAL REPAIRER - 04/24/2024 8:50 AM ELECTRICAL REPAIRER [facility] [address] [place] [address] Delia Ornelas APRN, PROGRAM PROJECT ANALYST Discharge Disposition: Discharged to home or Selfcare 04/24/2024 7:45 AM ELECTRICAL REPAIRER [facility] [place] [address] Chapito Galvez MD Chronic pain of left knee (Primary Dx); Preop cardiovascular exam; Type 2 diabetes mellitus with stage 1 chronic kidney disease, without long-term current use of insulin (HCC) Discharge Disposition: Discharged to home or Selfcare 04/24/2024 Travel 04/23/2024 [facility] [address] [place] [address] Delia Orneals APRN, PROGRAM PROJECT ANALYST Need Order 04/23/2024 Documentation Only [facility] [address] [place] [address] Chapito Galvez MD 04/22/2024 [facility]ill [facility] [place] [address] Chapito Galvez MD Medication Refill 04/18/[address] [facility] [address] [place] [phone] Chapito Galvez MD Referral from Last 3 Months Immunizations Immunization Administration Dates Next Due Covid-19, Mrna, Lnp-s, PF, 1 00 mcg/0.5 mL Dose (Moderna) 09/15/2020,08/18/2020 Influenza Vaccine greater than 3 yrs 02/22/2023, 01/21/2014 Influenza Vaccine, Quadrivalent, PF 02/20,2021,03/07/2018,03/11 Influenza, High-dose, Quadrivalent 03/29/2023, Influenza, Seasonal, Injecta ble, Undefined 02/22/2023,01/21/2014,02/20/2013 Influenza, Trivalent, Adjuvanted, PF 03/16/2019 Influenza, high-dose, trivalent, PF 02/06/2024,1 ,07/12/2016 PUR FLU HIGH DOSE (FLUZONE) 07/12/2016 PUR PCV-13 04/01/2015 09/20/2015 Pneumococcal Vaccine - 13 Valent 03/11/2017,03/23 Pneumococcal Vaccine Adult - 23 Valent 12/27/2019,08/21/2008 TD VACCINE 05/23/2002 TDAP Vaccine 09/30/2015 Family History Medical History Relation Name Comments Cancer Brother prostate Prostate Cancer Brother Drug Abuse Daughter Alzheimer's Disease Father Diabetes Father Hypertension Father Heart Attack Maternal Grandfather Cancer Maternal Grandmother Colon Alzheimer's Disease Mother Heart Attack Paternal Grandfather Stroke Paternal Grandfather Alzheimer's Disease Paternal Grandmother Diabetes Sister 1 High Cholesterol Sister 1 Hypertension Sister 1 No Known Problems Sister 2 Prostate Cancer Son Relation Name Status Comments Brother Alive Daughter Father Maternal Grandfather Maternal Grandmother Mother Paternal Grandfather Paternal Grandmother Sister 1 Alive Sister 2 Alive Son Alive Social History Tobacco Use Types Packs/Day Years Used Date Smoking Tobacco: Never Smokeless Tobacco: Never Tobacco Cessation:Counseling Given: No Alcohol Use Standard Drinks/Week Comments Yes 0 (1 standard drink = 0.6 oz pur e alcohol) occasional PHQ-2 Answer Date Recorded Total Score - Questions 1-9 0 07/2023 Education Answer Date Recorded What is the [...] AM CDT Sexual Orientation Not on file Last Filed Vital Signs Vital Sign Reading Time Taken Comments Blood Pressure 130/60 06/29/2024 9:03 AM ELECTRICAL REPAIRER Pulse 68 06/29/2024 9:03 AM ELECTRICAL REPAIRER Temperature 36.4 C (97.5 F) 06/29/2024 9:03 AM ELECTRICAL REPAIRER Respiratory Rate 18 06/29/2024 9:03 AM ELECTRICAL REPAIRER Oxygen Saturation 97% 06/29/2024 9:03 AM ELECTRICAL REPAIRER Inhaled Oxygen Concentration - - Weight 112 kg (247 lb) 06/29/2024 9:03 AM ELECTRICAL REPAIRER Height 177.8 cm (5' 10 ) 06/29/2024 9:03 AM ELECTRICAL REPAIRER Body Mass Index 35.44 06/29/2024 9:03 AM ELECTRICAL REPAIRER Plan of Treatment Upcoming Encounters Date Type Department Care Team (Late st Contact Info) Description 09/12/2024 8:00 AM CDT Lab [facility] [address]2 [facility] [address] [place] [address] [facility] Lab/Ancillary 09/18/2024 9:30 AM CDT Office Visit [facility] [place] [address] [place] [address] Delia Ornelas APRN, PROGRAM PROJECT ANALYST #2 [facility], [address] [place] [address] 09/25/2024 8:30 AM CDT Office Visit [facility] [place] [address] [place] [address] Chapito Galvez MD #2 [facility] [address] [place] [address] Health Maintenance Due Date Last Done Comments Diabetes: Foot Exam 1950 Hepatitis C Virus (HCV) Screening 1950 Cologuard 2000 Immunochemical Fecal Occult Blood 2000 Zoster Immunization (1 of 2) 2000 Respiratory Syncytial Virus (RSV) Immunization (Adult) (1 - Risk 60-74 years 1-dose series) 2010 SARS-COV-2 Immunization ( season) 2024 09/15/2020, 08/18/2020 Diabetes: Hemoglobin A1c 10/23/2024 024, 01/03/2024, 09/08/2023, Additional history exists Diabetes: Nephropathy Screening 04/24/2025 04/24/2024, 01/03/2024, 09/08/2023, Additional history exists Diabetes: Eye Exam 07/09/2025 07/09/2024, 0 05/28/2022, 08/26/2021, Additional history exists Td Immunization Every 10 Years (Adults With 1 Tdap) 09/29/2025 09/30/2015, 05/23/2002 Colonoscopy 07/14/2033 07/14/2023, 06/24, 10/04/2017 Colorectal Cancer Screening 07/14/2033 07/14/2023, 10/04/2017 Pneumococcal Immunization (50+ years) Completed 12/27/2019, 03/11/2017, 04/01/2015, Additional history exists Pneumococcal Immunization Combined Discontinued 12/27/2019, 03/11/2017, 04/01/2015, Additional history exists PSA Discussion Discontinued 09/08/2023, 03/24, 07/05/2016 Influenza Immunization Completed , 03/29/2023, 02/22/2023, Additional history exists Hepatitis B Immunization Aged Out No longer eligible based on patient's age to complete this topic Meningococcal Immunization (ACWY) Aged Out No longer eligible based on patient's age to complete this topic Rotavirus Immunization Aged Out No lo nger eligible based on patient's age to complete this topic Procedures Procedure Name Priority Date/Time Associated Diagnosis Comments HM DILATED EYE EXAM 07/09/2024 1 2:00 AM ELECTRICAL REPAIRER POC SARS-COV-2 BY MOLECULAR Routine 06/29/2024 9:14 AM ELECTRICAL REPAIRER Acute cough POC INFLUENZA A AND B BY MOLECULAR Routine 06/29/2024 9:14 AM ELECTRICAL REPAIRER Acute cough CBC WITH AUTO DIFFERENTIAL Today 05/18/2024 8:50 AM ELECTRICAL REPAIRER Normocytic anemia COMPLETE BLOOD COUNT (CBC) WITH DIFF Today 05/18/2024 8:50 AM ELECTRICAL REPAIRER Normocytic anemia FERRITIN Routine 04/27/2024 7:31 AM ELECTRICAL REPAIRER Other iron deficiency anemia IRON,TRANSFERN,CALC. TIBC,%SAT Routine 04/27/2024 7:31 AM ELECTRICAL REPAIRER Other iron deficiency anemia RETICULOCYTE COUNT (RETIC) Routine 04/27/2024 7:31 AM ELECTRICAL REPAIRER Other iron deficiency anemia XR CHEST 2 VIEWS Routine 04/24/2024 9:06 AM ELECTRICAL REPAIRER Preop cardiovascular exam Type 2 diabetes mellitus with stage 1 chronic kidney disease, without long-term current use of insulin (HCC) EKG 12 LEAD Routine 04/24/2024 8:45 AM ELECTRICAL REPAIRER Essential hypertension Coronary artery disease involving squaxin heart, unspecified vessel or lesion type, unspecified whether angina present CBC WITH AUTO DIFFERENTIAL Today 04/24/2024 8:11 AM ELECTRICAL REPAIRER Preop cardiovascular exam COMPLETE BLOOD COUNT (CBC) WITH DIFF Today 04/24/2024 8:11 AM ELECTRICAL REPAIRER Preop cardiovascular exam CMP (COMPREHENSIVE METABOLIC PANEL) Routine 04/24/2024 8:11 AM ELECTRICAL REPAIRER Type 2 diabetes mellitus treated without insulin (HCC) High cholesterol Essential hypertension HEMOGLOBIN A1C W/ ESTIMATED GLUCOSE Routine 04/24/2024 8:11 AM ELECTRICAL REPAIRER Type 2 diabetes mellitus treated without insulin (HCC) High cholesterol Essential hypertension PSA SCREEN Today 09/08/2023 8:59 AM CDT Screening for prostate cancer from Last 3 Months or Most Recently Relevant to Health Maintenance Results * HM DILATED EYE EXAM (07/09/2024 12:00 AM ELECTRICAL REPAIRER) 07/09/2024 us Provider Scan PROCEDURE/MINOR SURGICAL ORDERAB LES Final Result SCAN * (ABNORMAL) POC SARS-COV-2 BY MOLECULAR (06/29/2024 9:14 AM ELECTRICAL REPAIRER) SARSCOV2 Positive(A ) Negative, INVALID PROCEDURE CONTROL Valid 06/29/2024 9:14 AM ELECTRICAL REPAIRER August N Seema MARIEE, KATE POINT OF CARE TESTING ([facility]) Final Result * POC INFLUENZA A AND B BY MOLECULAR (06/29/2024 9:14 AM ELECTRICAL REPAIRER) Pathologist [facility] INFLUENZA A RNA Negative Negative, Invalid INFLUENZA B RNA Negative Negative, Invalid PROCEDURE CONTROL Valid 06/29/2024 9:14 AM ELECTRICAL REPAIRER August N Seema MARIEE, KATE POINT OF CARE TESTING ([facility]) Final Result * (ABNORMAL) CBC WITH AUTO DIFFERENTIAL (05/18/2024 8:50 AM ELECTRICAL REPAIRER) Only the most recent of2 resultswithin the time period is included. Pathologist [facility] WBC 7.00 4.00 - 12.00 10(3)/mcL 05/18/2024 12:[address] [facility] RBC 4.01(L) 4.40 - 5.80 10(6)/mcL 05/18/2024 12:[address] [facility] HEMOGLOBIN (HGB) 12.8(L) 13.0 - 16.5 g/dL 05/18/2024 12:[address] [facility] HEMATOCRIT (HCT) 35.9(L) 38.0 - 50.0 % 05/18/2024 12:[address] [facility] MCV 89.5 82.0 - 96.0 fL 05/18/2024 12:[address] [facility] MCH 31.9 26.0 - 32.0 pg 05/18/2024 12:[address] [facility] MCHC 35.7 31.0 - 36.0 g/dL 05/18/2024 12:[address] [facility] PLATELET COUNT 214 140 - 440 10(3)/mcL 05/18/2024 12:16 PM ELECTRICAL REPAIRER [facility] RDW 13.2 11.8 - 15.5 % 05/18/2024 12:16 PM ELECTRICAL REPAIRER [facility] MPV 9.3 8.0 - 12.6 fL 05/18/2024 12:16 PM ELECTRICAL REPAIRER [facility] NEUTROPHILS 59.0 40.0 - 68.0 % 05/18/2024 12:16 PM ELECTRICAL REPAIRER [facility] LYMPHOCYTES 31.1 19.0 - 49.0 % 05/18/2024 12:16 PM ELECTRICAL REPAIRER [facility] MONOCYTES 7.3 3.0 - 13.0 % 05/18/2024 12:16 PM ELECTRICAL REPAIRER [facility] EOSINOPHILS 1.9 0.0 - 8.0 % 05/18/2024 12:16 PM ELECTRICAL REPAIRER [facility] BASOPHILS 0.7 0.0 - 1.0 % 05/18/2024 12:16 PM [facility] ABSOLUTE NEUTROPHILS 4.13 1.40 - 5.30 10(3)/[facility] 05/18/2024 12:16 PM ELECTRICAL REPAIRER [facility] ABSOLUTE LYMPHOCYTES 2.18 0.90 - 3.30 10(3)/[facility] 05/18/2024 12:16 PM [facility] ABSOLUTE MONOCYTES 0.51 0.10 - 0.90 10(3)/[facility] 05/18/2024 12:16 PM ELECTRICAL REPAIRER [facility] ABSOLUTE EOSINOPHIL 0.13 0.00 - 0.50 10(3)/[facility] 05/18/2024 12:16 PM [facility] ABSOLUTE BASOPHILS 0.05 0.00 - 0.10 10(3)/[facility] 05/18/2024 12:16 PM [facility] NRBC PER 100 WBC 0 05/18/20 12:[address] [facility] Blood Venipuncture / Unknown 05/18/2024 8:50 AM ELECTRICAL REPAIRER 05/18/2024 8:50 AM ELECTRICAL REPAIRER Chapito Galvez MD HEMATOLOGY ORDERABLES Final R esult Performing Organization Address [facility] Co de Phone Number [facility] [address] [place] [address] * IRON,TRANSFERN,CALC.TIBC,%SAT (04/27/2024 7:31 AM ELECTRICAL REPAIRER) IRON 64 31 - 144 mcg/dL 04/27/2024 12:54 PM ELECTRICAL REPAIRER [facility] TRANSFERRIN 237 163 - 344 mg/dL 04/27/2024 12:54 PM ELECTRICAL REPAIRER [facility] TIBC, CALCULATED 296 261 - 462 mcg/dL 04/27/2024 12:54 PM ELECTRICAL REPAIRER [facility] % SATURATION * 22 15 - 62 % 04/27/2024 12:54 PM ELECTRICAL REPAIRER [facility] Blood Venipuncture / Unknown 04/27/2024 7:31 AM ELECTRICAL REPAIRER 04/27/2024 7:31 AM ELECTRICAL REPAIRER Chapito Galvez MD CHEMISTRY ORDERABLES Final Re sult Performing Organization Address [facility] de Phone Number [facility] [address] [place] [address] * (ABNORMAL) RETICULOCYTE COUNT (RETIC) (04/27/2024 7:31 AM ELECTRICAL REPAIRER) [facility] RETICULOCYTES 2.2(H) 0.5 - 2.0 % 04/27/2024 12:43 PM ELECTRICAL REPAIRER [facility] Blood Venipuncture / Unknown 04/27/2024 7:31 AM ELECTRICAL REPAIRER 04/27/2024 7:31 AM ELECTRICAL REPAIRER us Chapito Galvez MD HEMATOLOGY ORDERABLES Final R esult Performing Organization Address [facility] Co de Phone Number [facility] [address] [place] [address] * FERRITIN (04/27/2024 7:31 AM ELECTRICAL REPAIRER) [facility] Signature FERRITIN 205 22 - 274 ng/mL 04/27/2024 1:08 PM ELECTRICAL REPAIRER [facility] Blood Venipuncture / Unknown 04/27/2024 7:31 AM ELECTRICAL REPAIRER 04/27/2024 7:31 AM ELECTRICAL REPAIRER us Chapito Galvez MD CHEMISTRY ORDERABLES Final Re sult [facility] [facility] [place] [address] * XR CHEST 2 VIEWS (04/24/2024 9:06 AM ELECTRICAL REPAIRER) Anatomical Region Laterality Modality Chest N/A Digital Radiogra phy 05/05/2024 10:2 6 AM ELECTRICAL REPAIRER Impressions 05/05/2024 10:28 AM ELECTRICAL REPAIRER IMPRESSION: No acute radiographic abnormality. Narrative 05/05/2024 10:28 AM ELECTRICAL REPAIRER EXAM DESCRIPTION: XR CHEST 2 VIEWS REASON FOR STUDY: Pre-Operative examination- no chest complaints-Hx HTN, heart attack, CABG FINDINGS: Posteroanterior and lateral images of the thorax without comparison demonstrate a normal heart size, no focal consolidation and no pleural effusions. THIS IS AN ELECTRONICALLY VERIFIED FINAL REPORT 05/05/2024 10:26 AM - Electronically signed by Juan Smallwood M.D. SN: SN Report ID: [id number] Reading Location: [id number] Procedure Note Juan Smallwood MD - 05/05/2024 EXAM DESCRIPTION: XR CHEST 2 VIEWS REASON FOR STUDY: Pre-Operative examination- no chest complaints-Hx HTN, heart attack, CABG FINDINGS: Posteroanterior and lateral images of the thorax without comparison demonstrate a normal heart size, no focal consolidation and no pleural effusions. THIS IS AN ELECTRONICALLY VERIFIED FINAL REPORT 05/05/2024 10:26 AM - Electronically signed by Juan Smallwood M.D. SN: SN Report ID: [id number] Reading Location: [id number] IMPRESSION: No acute radiographic abnormality. us Chapito Galvez MD IMG DIAGNOSTIC ORDERABLES Fin al Result * EKG 12 LEAD (04/24/2024 8:45 AM ELECTRICAL REPAIRER) Ventricular Rate 58 BPM EXTERNAL EKG Atrial Rate 58 BPM EXTERNAL EKG P-R Interval 160 ms EXTERNAL EKG QRS Duration 112 ms EXTERNAL EKG Q-T Duration 426 ms EXTERNAL EKG QTC CALCULATION 418 ms EXTERNAL EKG P Blanchard 35 degrees EXTERNAL EKG R Blanchard 48 degrees EXTERNAL EKG T Blanchard 77 degrees EXTERNAL EKG 04/24/2024 8:45 AM ELECTRICAL REPAIRER Impressions EXTERNAL EKG - 04/24/2024 5:13 PM ELECTRICAL REPAIRER Sinus bradycardia Otherwise normal ECG When compared with ECG of 20-OCT-2022 14:24, Nonspecific T wave abnormality now evident in Lateral leads Confirmed by GOLDEN MCQUEEN ([id number]) on 04/24/2024 5:13:37 PM Narrative Procedure Note Golden Mcqueen MD - 04/24/2024 IMPRESSION: Sinus bradycardia Otherwise normal ECG When compared with ECG of 20-OCT-2022 14:24, Nonspecific T wave abnormality now evident in Lateral leads Confirmed by GOLDEN MCQUEEN ([id number]) on 04/24/2024 5:13:37 PM Delia Ornelas APRN, KATE IMG ECG ORDERABLES F inal Result EXTERNAL EKG * HEMOGLOBIN A1C W/ ESTIMATED GLUCOSE (04/24/2024 8:11 AM ELECTRICAL REPAIRER) HGB-A1C 5.9 4.0 - 6.0 % 04/24/2024 1:12 PM ELECTRICAL REPAIRER [facility] Est Average Glucose 122.6 mg/dL 04/24/2024 1:12 PM ELECTRICAL REPAIRER [facility] Blood Venipuncture / Unknown 04/24/2024 8:11 AM ELECTRICAL REPAIRER 04/24/2024 8:11 AM ELECTRICAL REPAIRER Narrative [facility] - 04/24/2024 1:12 PM ELECTRICAL REPAIRER HEMOGLOBIN A1C: DIABETIC PATIENTS: WELL-CONTROLLED: 6.2 - 7.0 INTERMEDIATE WELL-CONTROLLED: 7.0 - 9.0 POORLY-CONTROLLED: >9.0 us Chapito Galvez MD CHEMISTRY ORDERABLES Final Re sult [facility] [address] [place] [address] * (ABNORMAL) CMP (COMPREHENSIVE METABOLIC PANEL) (04/24/2024 8:11 AM ELECTRICAL REPAIRER) SODIUM 140 136 - 145 mmol/L 04/24/2024 12:[address] [facility] POTASSIUM 4.1 3.5 - 5.1 mmol/L 04/24/2024 12:[address] [facility] CHLORIDE 104 98 - 107 mmol/L 04/24/2024 12:[address] [facility] CO2, VENOUS 26 22 - 30 mmol/L 04/24/2024 12:[address] [facility] ANION GAP 14.1 <18.0 mmol/L 04/24/2024 12:[address] [facility] GLUCOSE 139(H) 70 - 99 mg/dL 04/24/2024 12:[address] [facility] BUN 30(H) 8 - 26 mg/dL 04/24/2024 12:[address] [facility] CREATININE, BLOOD 1.37(H) 0.70 - 1.30 mg/dL 04/24/2024 12:[address] [facility] BUN/CREATININE RATIO 22(H) 12 - 20 ratio 04/24/2024 12:[address] [facility] LAB TOTAL PROTEIN 7.2 6.3 - 8.2 g/dL 04/24/2024 12:[address] [facility] ALBUMIN 4.2 3.5 - 5.0 g/dL 04/24/2024 12:58 PM ELECTRICAL REPAIRER [facility] A/G RATIO 1.4 1.0 - 2.2 04/24/2024 12:58 PM ELECTRICAL REPAIRER [facility] CALCIUM 9.3 8.7 - 10.5 mg/dL 04/24/2024 12:[address] [facility] T BILI 0.5 0.2 - 1.2 mg/dL 04/24/2024 12:58 PM ELECTRICAL REPAIRER [facility] SGOT (AST) 13 5 - 34 U/L 04/24/2024 12:58 PM ELECTRICAL REPAIRER [facility] SGPT (ALT) 15 0 - 55 U/L 04/24/2024 12:58 PM ELECTRICAL REPAIRER [facility] ALKALINE PHOSPHATASE 65 40 - 150 U/L 04/24/2024 12:[address] [facility] IS THE PATIENT REQUIRED TO BE FASTING? No 04/24/2024 12:58 PM ELECTRICAL REPAIRER [facility] GFR, ESTIMATED 54(L) >=60 04/24/2024 12:[address] [facility] Comment: Creatinine Clearance is the preferred criteria for selecting drug dose adjustments in renally impaired patients. The GFR is provided as additional pertinent clinical information. GFR is reported in mL/min/1.73 sq m. Calculation based on the Chronic Kidney Disease Epidemiology Collaboration (CKD- EPI) equation refit without adjustment for race. GFR, EST. >60 >=60 024 12:58 PM ELECTRICAL REPAIRER [facility] GFR, EST. NONAFRICAN 51(L) >=60 04/24/2024 12:[address] [facility] Blood Venipuncture / Unknown 04/24/2024 8:11 AM ELECTRICAL REPAIRER 04/24/2024 8:11 AM ELECTRICAL REPAIRER us Chapito Galvez MD CHEMISTRY ORDERABLES Final Re sult [facility] #[address] [place] [address] * (ABNORMAL) PSA SCREEN (09/08/2023 8:59 AM CDT) PSA SCREEN, TOTAL 5.11(H) <4.00 ng/mL 09/08/2023 1:04 PM CDT [facility] Blood Venipuncture / Unknown 09/08/2023 8:59 AM CDT 09/08/2023 8:59 AM CDT Narrative [facility] - 09/08/2023 1:04 PM CDT The ALINITY Total PSA assay is a Chemiluminescent Microparticle Immunoassay (CMIA) for the quantitative determination of total PSA (both free PSA and PSA complexed to [id number]) in human serum. Total PSA values obtained with different assay methods, including Rojas PSA assays, cannot be used interchangeably. us Chapito Galvez MD CHEMISTRY ORDERABLES Final Re sult [facility] [address] [place] [address] from Last 3 Months or Most Recently Relevant to Health Maintenance Additional Health Concerns Infection Onset Date Last Indicated COVID - 19 Confirmed 06/29/2024 06/29/2024 Insurance MEDICARE [facility] Advance Directives Documents on File Type Date Recorded Patient Automotive Exhaust Emissions Technician Expl anation Advance Care Planning Discussion 05/10/2024 2:47 PM CARDIAC CLEARANCE Care Teams Real Estate Acquisition Analyst Relationship Specialty Start Date End Date Chapito Galvez MD #2 [facility] [address] [place] [address] PCP - General Family Medicine 04/01/15 Osman Gordon MD #2 [facility] [address] [place] [address] Consulting Physician Colon and Rectal Surgery 06/24/23 Delia Ornelas APRN, PROGRAM PROJECT ANALYST #2 [facility] [place] [address] [place] [address] Nurse Practitioner Cardiology 07/13/23 Selam Gomez APRN, PROGRAM PROJECT ANALYST #2 [place] [address] Nurse Practitioner Cardiology 05/08/24
--- OUTSIDE RECORDS SUMMARY | 2024-07-16 11:39 | XMS_ITS | Encounter Summary ---
Author Organization [facility] Address [address] [place] [address] Phone Care Team Providers Care Lead Nuclear Medicine Technologist Name Role Phone Chapito Galvez MD Primary Care Provider Sharad Yates MD Unavailable Nirali Parker RN Unavailable Unavaila Osman Zamarripa MD Unavailable Delia Ornelas RESOURCES REPRESENTATIVE, TEST DIRECTOR Unavailable [phone] Selam Gomez RESOURCES REPRESENTATIVE, TEST DIRECTOR Unavailable Reason for Visit * Reason Comments Medication Refill Encounter Details Date Type Department Care Team (Late st Contact Info) Description 09/17/2019 Refill [facility] Medical Group - Family Medicine [facility] #2 [place] [address] Chapito Galvez MD #[address] [address] Medication Refill Social History Tobacco Use Types Packs/Day Years Used Date Smoking Tobacco: Never Smokeless Tobacco: Never Alcohol Use Standard Drinks/Week Comments Yes 0 (1 standard drink = 0.6 oz pur e alcohol) rarely PHQ-2 Answer Date Recorded PHQ-2 Score 0 01/29/2019 Sexually Active Control Partners Comments Yes Female Sex and Gender Information Value Date Recorded Sex Assigned at Male 01/04/2023 9:19 AM CDT Legal Sex Male 8:55 PM CDT Gender Identity Male 01/04/2023 9:19 AM CDT Sexual Orientation Not on file documented as of this encounter Miscellaneous Notes * Telephone Encounter - Chapito Galvez MD - 09/17/2019 3:22 PM CDT Prescription pending signature * Telephone Encounter - Argenis Bah, RN - 09/17/2019 3:14 PM CDT Requested Prescriptions Pending Prescriptions Disp Refills zolpidem (AMBIEN) 5 MG Tablet [Pharmacy Med Name: ZOLPIDEM TARTRATE 5MG TABS] 30 Tab 0 Sig: TAKE ONE TABLET BY MOUTH AT BEDTIME NEEDED FOR SLEEP Not Delegated - Psychiatry: Anxiolytics/Hypnotics Failed - 09/17/2019 3:05 PM Failed - This refill cannot be delegated Passed - Valid encounter within last 6 months Past Office Visits Recent Outpatient Visits 5 months ago Essential hypertension [facility] Chapito Galvez MD 10 months ago Essential hypertension [facility] Chapito Galvez MD 11 months ago Dysfunction of left eustachian tube [facility] [place] [facility] Martha Crum PAC 1 year ago High cholesterol [facility] Chapito Galvez MD 1 year ago Prostate cancer screening [facility] [place] [facility] Chapito Galvez MD Upcoming Appointments Future Appointments In 3 months Lab, Sapg [facility] [place] [facility], [facility] In 3 months Chapito Galvez MD [facility] [place] [facility], [facility] documented in this encounter Plan of Treatment Upcoming Encounters Date Type Department Care Team (Late st Contact Info) Description 09/12/2024 8:00 AM CDT Lab [facility] #[address] [address] [facility] Lab/Ancillary 09/18/2024 9:30 AM CDT Office Visit [facility] - [place] #[address] [place] [address] Delia Ornelas APRN, TEST DIRECTOR #2 [facility] [address] [place] [address] 09/25/2024 8:30 AM CDT Office Visit [facility] Family Medicine [facility] #2 [facility] [address] Chapito Galvez MD #[address] [address] documented as of this encounter Visit Diagnoses Not on filedocumented in this encounter Additional Health Concerns Infection Onset Date Last Indicated Resolved Time Respiratory Rule-Out 06/29/2024 06/29/2024 025 9:28 AM HEAD FIELD HOCKEY COACH COVID - 19 06/29/2024 06/29/2024 06/29/2024 9:27 AM HEAD FIELD HOCKEY COACH COVID - 19 Confirmed 06/29/2024 06/29/2024 Assessment Noted Time PHQ-9 Depression Total Score: 0 04/04/20 19 8:00 AM HEAD FIELD HOCKEY COACH documented as of this encounter Care Teams Lead Nuclear Medicine Technologist Relationship Specialty Start Date End Date Chapito Galvez MD #[address] [address] PCP - General Family Medicine 04/01/15 Sharad Yates MD #[address] [address] Consulting Physician Cardiovascular Disease - Cardiology 02/17/22 04/25/24 Nirali Gruber RN [place] Registered Nurse Cardiology 03/08/22 04/25/24 Osman Gordon MD #[address] [address] Consulting Physician Colon and Rectal Surgery 06/24/23 Delia Ornelas APRN, TEST DIRECTOR #2 [facility], [address] [address] Nurse Practitioner Cardiology 07/13/23 Selam Gomez APRN, TEST DIRECTOR #2 [place] [address] Nurse Practitioner Cardiology 05/08/24 documented as of this encounter
--- OUTSIDE RECORDS SUMMARY | 2024-07-16 11:39 | XMS_ITS | Encounter Summary ---
Author Organization [facility] Address [address] [place] [address] Phone Care Team Providers Care Card Seller Name Role Phone Chapito Galvez MD Primary Care Provider [phone] Sharad Yates MD Unavailable Nirali Parker RN Unavailable Unavaila Osman Zamarripa MD Unavailable Delia Ornelas MEDICINAL PLANT PICKER, PLASTIC MOLDING OPERATOR Unavailable [phone] Selam Gomez MEDICINAL PLANT PICKER, PLASTIC MOLDING OPERATOR Unavailable Reason for Visit * Reason Comments Medication Refill Encounter Details Date Type Department Care Team (Late st Contact Info) Description 11/01/2023 Refill [facility] - Family Medicine [facility] #[address] [place] [address] Chapito Galvez MD #[address] [address] Medication Refill Social History Tobacco Use Types [...] Telephone Encounter - Zayda Langston RN - 11/01/2023 10:01 AM CDT 10/27/23 - 1 mg weekly documented in this encounter Plan of Treatment Upcoming Encounters Date Type Department Care Team (Late st Contact Info) Description 09/12/2024 8:00 AM CDT Lab [facility] #[address] [facility] [address] [place] [address] [facility] Lab/Ancillary 09/18/2024 9:30 AM CDT [facility] - [place] #2 [place] [address] Delia Ornelas APRN, PLASTIC MOLDING OPERATOR #2 [facility], [address] [place] [address] 09/25/2024 8:30 AM CDT Office Visit [facility] Medical Group - Family Medicine - [place] #2 [place] [address] Chapito Galvez MD #2 [facility] [address] [place] [address] documented as of this encounter Visit Diagnoses Not on filedocumented in this encounter Additional Health Concerns Infection Onset Date Last Indicated Resolved Time Respiratory Rule-Out 06/29/2024 06/29/2024 025 9:28 AM DIRECTOR FACILITIES MAINTENANCE COVID - 19 06/29/2024 06/29/2024 06/29/2024 9:27 AM DIRECTOR FACILITIES MAINTENANCE COVID - 19 Confirmed 06/29/2024 06/29/2024 Assessment Noted Time PHQ-9 Depression Total Score: 0 09/08/19 8:24 AM CDT documented as of this encounter Care Teams Card Seller Relationship Specialty Start Date End Date Chapito Galvez MD #2 [facility] [address] [place] [address] PCP - General Family Medicine 04/01/15 Sharad Yates MD #2 [facility] [address] [place] [address] Consulting Physician Cardiovascular Disease - Cardiology 02/17/22 04/25/24 Nirali Gruber RN [place] Registered Nurse Cardiology 03/08/22 04/25/24 Osman Gordon MD #[address] [address] Consulting Physician Colon and Rectal Surgery 06/24/23 Delia Ornelas APRN, PLASTIC MOLDING OPERATOR #2 [facility] [address] [place] [address] Nurse Practitioner Cardiology 07/13/23 Selam Gomez APRN, PLASTIC MOLDING OPERATOR #2 [place] [address] Nurse Practitioner Cardiology 05/08/24 documented as of this encounter
--- OUTSIDE RECORDS SUMMARY | 2024-07-16 11:39 | XMS_ITS | Encounter Summary ---
Author Organization [facility] Address [address] [place] [address] Phone Care Team Providers Care Foreign Policy Officer Name Role Phone Chapito Galvez MD Primary Care Provider Sharad Yates MD Unavailable Nirali Parker RN Unavailable Unavaila Osman Zamarripa MD Unavailable Delia Ornelas GYROSCOPE TECHNICIAN, ERP ENGINEER Unavailable [phone] Selam Gomez GYROSCOPE TECHNICIAN, ERP ENGINEER Unavailable Reason for Visit * Reason Comments Medication Refill Encounter Details Date Type Department Care Team (Late st Contact Info) Description 07/07/2022 Refill [facility] Medical Group - Family Medicine [facility] #2 [place] [address] Chapito Galvez MD #[address] [address] Medication Refill Social History Tobacco Use Types Packs/Day Years Used Date Smoking Tobacco: Never Smokeless Tobacco: Never Alcohol Use Standard Drinks/Week Comments Yes 0 (1 standard drink = 0.6 oz pur e alcohol) rarely PHQ-2 Answer Date Recorded Total Score - Questions 1-9 0 06/23 Sexually Active Control Partners Comments Yes Female [...] suspected to have Coronavirus/COVID-19? No / Unsure 07/07/2022 8:53 AM TEMPORARY RECEPTIONIST documented as of this encounter Functional Status * Question Answer Date of Assessment Author Little interest or pleasure in doing things Not at all 07/07/2022 8:00 AM TEMPORARY RECEPTIONIST Silva Bell RMA Feeling down, depressed, or hopeless Not at all 07/07/2022 8:00 AM TEMPORARY RECEPTIONIST Silva Bell RMA * Over the past 2 weeks, how often have you been bothered by any of the following problems? Question Answer Date of Assessment Author Patient Health Questionnaire -2 Score 0 07/07/2022 8:00 AM TEMPORARY RECEPTIONIST Silva Bell RMA documented as of this encounter Miscellaneous Notes * Telephone Encounter - Mariposa Fu RN - 07/07/2022 10:16 AM TEMPORARY RECEPTIONIST Medication warning. Per nursing clinical judgement, provider to review and approve the medication(s) order(s) if appropriate. Requested Prescriptions Pending Prescriptions Disp Refills atorvastatin (LIPITOR) 40 MG Tablet [Pharmacy Med Name: ATORVASTATIN CALCIUM 40MG TABS] 90 Tablet 1 Sig: TAKE ONE TABLET BY MOUTH EVERY DAY Hmg CoA Reductase Inhibitors Protocol Passed - 07/07/2022 10:12 AM Passed - Visit with relevant provider in past 12 months or upcoming 90 days Recent Visits Date Type Provider Dept 03/05/22 Office Visit Chapito Galvez MD [facility] 01/08/22 Office Visit Chapito Galvez MD [facility] 09/09/21 Office Visit Chapito Galvez MD [facility] 07/28/21 Office Visit Karen Meredith [facility]N, ERP ENGINEER [facility] recent visits within past 365 days and meeting all other requirements Today's Visits Date Type Provider Dept 07/07/22 Office Visit Chapito Galvez MD [facility] Showing today's visits and meeting all other requirements Future Appointments No visits were found meeting these conditions. Showing future appointments within next 90 days and meeting all other requirements Passed - Lipid panel in past 12 months LDL Date Value Ref Range Status 12/25/2021 43 5 - 130 mg/dL Final HDL CHOLESTEROL Date Value Ref Range Status 12/25/2021 40.5 >40 mg/dL Final CHOLESTEROL Date Value Ref Range Status 12/25/2021 138 <=200 mg/dL Final TRIGLYCERIDES Date Value Ref Range Status 12/25/2021 275 (H) <150 mg/dL Final VLDL Date Value Ref Range Status 12/25/2021 55 5 - 55 mg/dL Final CHOL/HDL RATIO Date Value Ref Range Status 12/25/2021 3.4 0.0 - 4.4 Final NON-HDL CHOLESTEROL Date Value Ref Range Status 12/25/2021 97.5 <130 mg/dL Final ORARY RECEPTIONIST documented in this encounter Plan of Treatment Upcoming Encounters Date Type Department Care Team (Late st Contact Info) Description 09/12/2024 8:00 AM CDT Lab [facility] #2 [facility] [address] [place] [address] [facility] Lab/Ancillary 09/18/2024 9:30 AM CDT Office Visit [facility] Medical Group - Cardiology - [place] #2 [place] [address] Delia Ornelas APRN, ERP ENGINEER #2 [facility], [address] [place] [address] 09/25/2024 8:30 AM CDT [facility] Visit [facility] Family Medicine - [place] #2 [place] [address] Chapito Galvez MD #2 [facility] [address] [place] [address] documented as of this encounter Visit Diagnoses Not on filedocumented in this encounter Additional Health Concerns Infection Onset Date Last Indicated Resolved Time Respiratory Rule-Out 06/29/2024 06/29/2024 025 9:28 AM TEMPORARY RECEPTIONIST COVID - 19 06/29/2024 06/29/2024 06/29/2024 9:27 AM TEMPORARY RECEPTIONIST COVID - 19 Confirmed 06/29/2024 06/29/2024 Assessment Noted Time PHQ-9 Depression Total Score: 0 07/07/19 23 8:00 AM TEMPORARY RECEPTIONIST documented as of this encounter Care Teams Foreign Policy Officer Relationship Specialty Start Date End Date Chapito Galvez MD #2 [facility] [address] [place] [address] PCP - General Family Medicine 04/01/15 Sharad Yates MD #2 [facility] [address] [place] [address] Consulting Physician Cardiovascular Disease - Cardiology 02/17/22 04/25/24 Nirali Gruber RN [place] Registered Nurse Cardiology 03/08/22 04/25/24 Osman Gordon MD #2 [facility] [address] [place] [address] Consulting Physician Colon and Rectal Surgery 06/24/23 Delia Ornelas APRN, ERP ENGINEER #2 [facility] [address] [place] [address] Nurse Practitioner Cardiology 07/13/23 Selam Gomez APRN, ERP ENGINEER #2 [place] [address] Nurse Practitioner Cardiology 05/08/24 documented as of this encounter
--- OUTSIDE RECORDS SUMMARY | 2024-07-16 11:39 | XMS_ITS | Encounter Summary ---
Author Organization [facility] Address [address] [place] [address] Phone Care Team Providers Care Doctor Of Dental Surgery Name Role Phone Chapito Galvez MD Primary Care Provider Sharad Yates MD Unavailable Nirali Parker RN Unavailable Unavaila Osman Zamarripa MD Unavailable Delia Ornelas SCIENTIFIC SPECIALIST, HYDROSTATIC TESTER Unavailable [phone] Selam Gomez SCIENTIFIC SPECIALIST, HYDROSTATIC TESTER Unavailable Reason for Visit * Reason Comments Medication Refill Encounter Details Date Type Department Care Team (Late st Contact Info) Description 04/30/2020 Refill [facility] Medical Group - Family Medicine [facility] #2 [place] [address] Chapito Galvez MD #[address] [address] Medication Refill Social History Tobacco Use Types Packs/Day Years Used Date Smoking Tobacco: Never Smokeless Tobacco: Never Alcohol Use Standard Drinks/Week Comments Yes 0 (1 standard drink = 0.6 oz pur e alcohol) rarely PHQ-2 Answer Date Recorded Total Score - Questions 1-9 0 08/10/2019 Sexually Active Control Partners Comments Yes Female [...] have Coronavirus / COVID-19? No / Unsure 04/22/2020 8:19 AM SHOP TAILOR APPRENTICE documented as of this encounter Miscellaneous Notes * Telephone Encounter - Chapito Galvez MD - 04/30/2020 2:03 PM CST Prescription pending signature TAILOR APPRENTICE * Telephone Encounter - Zayda Langston RN - 04/30/2020 1:23 PM CST Last OV 04/22/20 - Follow up 08/25/20 - last Rx 09/17/19 Medication failed the protocol, provider to review and approve the medication order if appropriate. Requested Prescriptions Pending Prescriptions Disp Refills zolpidem (AMBIEN) 5 MG Tablet [Pharmacy Med Name: ZOLPIDEM TARTRATE 5MG TABS] 30 Tab 0 Sig: TAKE ONE TABLET BY MOUTH AT BEDTIME NEEDED FOR SLEEP Not Delegated - Psychiatry: Anxiolytics/Hypnotics Failed - 04/30/2020 1:21 PM Failed - This refill cannot be delegated Passed - Valid encounter within last 6 months Past Office Visits Recent Outpatient Visits 1 week ago Essential hypertension [facility] - Chapito Arrington MD 4 months ago Essential hypertension [facility] Chapito Arrington MD 8 months ago Essential hypertension [facility] Chapito Arrington MD 1 year ago Essential hypertension [facility] Chapito Arrington MD 1 year ago Essential hypertension [facility] Chapito Arrington MD Upcoming Appointments Future Appointments In 3 months Lab, [facility], [facility] In 3 months Lab, [facility], [facility] In 3 months Chapito Galvez MD [facility] ASIF Gutiérrez CLERK OF SCALES - Recent and Past Visits Recent Visits Date Type Provider Dept 04/22/20 Office Visit Chapito Galvez MD [facility] 12/27/19 Office Visit Chapito Galvez MD [facility] 08/27/19 Telemedicine Chapito Galvez MD [facility] 04/04/19 Office Visit Chapito Galvez MD [facility] Showing recent visits within past 460 days with a meds authorizing provider and meeting all other requirements Future Appointments No visits were found meeting these conditions. Showing future appointments within next 90 days with a meds authorizing provider and meeting all other requirements TAILOR APPRENTICE documented in this encounter Plan of Treatment Upcoming Encounters Date Type Department Care Team (Late st Contact Info) Description 09/12/2024 8:00 AM CDT Lab [facility] #2 [facility] [address] [place] [address] [facility] Lab/Ancillary 09/18/2024 9:30 AM CDT Office Visit [facility] Medical Group - Cardiology - [place] #2 [place] [address] Delia Ornelas APRN, HYDROSTATIC TESTER #2 [facility] [address] [place] [address] 09/25/2024 8:30 AM CDT Office Visit [facility] Medical Group - Family Medicine - [place] #2 [place] [address] Chapito Galvez MD #2 [facility] [address] [place] [address] documented as of this encounter Visit Diagnoses Diagnosis 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 [address] [place] [address] PCP - General Family Medicine 04/01/15 Sharad Yates MD #2 [facility] [address] [place] [address] Consulting Physician Cardiovascular Disease - Cardiology 02/17/22 04/25/24 Nirali Gruber RN [place] Registered Nurse Cardiology 03/08/22 04/25/24 Osman Gordon MD #[address] [facility] [address] [place] [address] Consulting Physician Colon and Rectal Surgery 06/24/23 Delia Ornelas APRN, HYDROSTATIC TESTER #2 [facility] [address] [place] [address] Nurse Practitioner Cardiology 07/13/23 Selam Gomez APRN, HYDROSTATIC TESTER #2 [place] [address] Nurse Practitioner Cardiology 05/08/24 documented as of this encounter
--- OUTSIDE RECORDS SUMMARY | 2024-07-16 11:39 | XMS_ITS | Encounter Summary ---
Author Organization [facility] Address [address] [place] [address] Phone Care Team Providers Care Aviation Consultant Name Role Phone Chapito Galvez MD Primary Care Provider [phone] Sharad Yates MD Unavailable Nirali Parker RN Unavailable Unavaila Osman Zamarripa MD Unavailable Delia Ornelas COUNTER PERSON, LABORER CUTTING TOOL Unavailable [phone] Selam Gomez COUNTER PERSON, LABORER CUTTING TOOL Unavailable Reason for Visit * Reason Onset Date Comments Medication Refill 07/02/2021 Encounter Details Date Type Department Care Team (Late st Contact Info) Description 07/02/2021 Refill [facility] Medical Group - Family [facility] #[address] [place] [address] Chapito Galvez MD #[address] [address] Medication Refill Social History Tobacco Use Types Packs/Day Years Used Date Smoking Tobacco: Never Smokeless Tobacco: Never Alcohol Use Standard Drinks/Week Comments Yes 0 (1 standard drink = 0.6 oz pur e alcohol) rarely PHQ-2 Answer Date Recorded Total Score - Questions 1-9 0 04/23 Sexually Active Control Partners Comments Yes Female Sex and Gender Information Value Date Recorded Sex Assigned at Male 01/04/2023 9:19 AM CDT Legal Sex Male 8:55 PM CDT Gender Identity Male 01/04/2023 9:19 AM CDT Sexual Orientation Not on file documented as of this encounter Miscellaneous Notes * Telephone Encounter - Zayda Langston, RN - 07/02/2021 11:55 AM CST Called pharmacy, they have 50 mg tabs and 25 mg tabs - ok to dispense with what is available as long as patient receives 100 mg daily as originally prescribed. ON INSTRUCTOR * Telephone Encounter - Jenni English - 07/02/2021 7:43 AM CST Received a faxed Rx request from pharmacy. Reordered refill medication(s) requested and pended for nurse and physician/JOSE review. Refill encounter routed to nurse John's pool for processing. Losartan 100 MG is on back order. Can pt take 4 25 MG tabs for 30 days until we can get 100 MG again? Thanks ON INSTRUCTOR documented in this encounter Plan of Treatment Upcoming Encounters Date Type Department Care Team (Late st Contact Info) Description 09/12/2024 8:00 AM CDT Lab [facility] #2 [facility] [address] [place] [address] [place] [facility] Lab/Ancillary 09/18/2024 9:30 AM CDT Office Visit [facility] Medical Group - Cardiology - [place] #2 [place] [address] Delia Ornelas APRN, LABORER CUTTING TOOL #2 [facility], [address] [place] [address] 09/25/2024 8:30 AM CDT Office Visit [facility] - Family Medicine - [place] #2 [place] [address] Chapito Galvez MD #2 [facility] [address] [place] [address] documented as of this encounter Visit Diagnoses Not on filedocumented in this encounter Additional Health Concerns Infection Onset Date Last Indicated Resolved Time Respiratory Rule-Out 06/29/2024 06/29/2024 025 9:28 AM LESSON INSTRUCTOR COVID - 19 06/29/2024 06/29/2024 06/29/2024 9:27 AM LESSON INSTRUCTOR COVID - 19 Confirmed 06/29/2024 06/29/2024 Assessment Noted Time PHQ-9 Depression Total Score: 0 05/11/20 21 8:21 AM LESSON INSTRUCTOR documented as of this encounter Care Teams Aviation Consultant Relationship Specialty Start Date End Date Chapito Galvez MD [facility] [address] [place] [address] PCP - General Family Medicine 04/01/15 Sharad Yates MD #[address] [address] Consulting Physician Cardiovascular Disease - Cardiology 02/17/22 04/25/24 Nirali Gruber RN [place] Registered Nurse Cardiology 03/08/22 04/25/24 Osman Gordon MD #[address] [address] Consulting Physician Colon and Rectal Surgery 06/24/23 Delia Ornelas APRN, LABORER CUTTING TOOL [facility] [address] [place] [address] Nurse Practitioner Cardiology 07/13/23 Selam Gomez APRN, LABORER CUTTING TOOL #2 [place] [address] Nurse Practitioner Cardiology 05/08/24 documented as of this encounter
--- OUTSIDE RECORDS SUMMARY | 2024-07-16 11:39 | XMS_ITS | Encounter Summary ---
Author Organization [facility] Address [address] [place] [address] Phone Care Team Providers Care Gear Design Engineer Name Role Phone Chapito Gavlez MD Primary Care Provider Sharad Yates MD Unavailable Nirali Parker RN Unavailable Unavaila Osman Zamarripa MD Unavailable Delia Ornelas MARINE INSULATOR, SUPPLIER QUALITY ENGINEERING MANAGER Unavailable [phone] Selam Gomez MARINE INSULATOR, SUPPLIER QUALITY ENGINEERING MANAGER Unavailable Reason for Visit * Reason Comments Medication Refill Encounter Details Date Type Department Care Team (Late st Contact Info) Description 04/19/2022 Refill [facility] Medical Group - Family Medicine [facility] #2 [place] [address] Chapito Galvez MD #[address] [address] Medication Refill Social History Tobacco Use Types [...] suspected to have Coronavirus/COVID-19? No / Unsure 04/08/2022 10:58 AM COUNTY HOME DEMONSTRATOR documented as of this encounter Miscellaneous Notes * Telephone Encounter - Mariposa Fu RN - 04/19/2022 10:30 AM COUNTY HOME DEMONSTRATOR Medication failed the protocol, provider to review and approve the medication order if appropriate. Requested Prescriptions Pending Prescriptions Disp Refills clopidogrel (PLAVIX) 75 MG Tablet [Pharmacy Med Name: CLOPIDOGREL BISULFATE 75MG TABS] 90 Tablet 1 Sig: TAKE ONE TABLET BY MOUTH ONCE DAILY Plavix Protocol Failed - 04/19/2022 10:08 AM Failed - CBC on record in past 12 months WBC Date Value Ref Range Status 09/30/2015 [...] Gutiérrez 07/28/21 Office Visit Karen Meredith APRN, SUPPLIER QUALITY ENGINEERING MANAGER [facility] [place] 05/11/21 Office Visit Chapito Galvez MD [facility] Showing recent visits within past 365 days and meeting all other requirements Future Appointments No visits were found meeting these conditions. Showing future appointments within next 90 days and meeting all other requirements TY HOME DEMONSTRATOR documented in this encounter Plan of Treatment Upcoming Encounters Date Type Department Care Team (Late st Contact Info) Description 09/12/2024 8:00 AM CDT Lab [facility] [address] [place] [address] Lab [place] Lab/Ancillary 09/18/2024 9:30 AM CDT Office Visit [facility] Medical [facility] - Cardiology - [place] [address] [facility] [facility] [place] [address] Delia Ornelas APRN, SUPPLIER QUALITY ENGINEERING MANAGER #2 [facility] [address] [place] [address] 09/25/2024 8:30 AM CDT Office Visit [facility] Medical [facility] - Family Medicine - [place] #2 [place] [address] Chapito Galvez MD #[address] [address] documented as of this encounter Visit Diagnoses Not on filedocumented in this encounter Additional Health Concerns Infection Onset Date Last Indicated Resolved Time Respiratory Rule-Out 06/29/2024 06/29/2024 025 9:28 AM COUNTY HOME DEMONSTRATOR COVID - 19 06/29/2024 06/29/2024 06/29/2024 9:27 AM COUNTY HOME DEMONSTRATOR COVID - 19 Confirmed 06/29/2024 06/29/2024 Assessment Noted Time PHQ-9 Depression Total Score: 0 07/29/19 22 8:18 AM COUNTY HOME DEMONSTRATOR documented as of this encounter Care Teams Gear Design Engineer Relationship Specialty Start Date End Date Chapito Galvez MD #[address] [place] [address] PCP - General Family Medicine 04/01/15 Sharad Yates MD #[address] [facility] [address] [place] [address] Consulting Physician Cardiovascular Disease - Cardiology 02/17/22 04/25/24 Nirali Gruber RN [place] Registered Nurse Cardiology 03/08/22 04/25/24 Osman Gordon MD #[address] [address] Consulting Physician Colon and Rectal Surgery 06/24/23 Delia Ornelas APRN, SUPPLIER QUALITY ENGINEERING MANAGER #[address] [address] Nurse Practitioner Cardiology 07/13/23 Selam Gomez APRN, SUPPLIER QUALITY ENGINEERING MANAGER #2 [place] [address] Nurse Practitioner Cardiology 05/08/24 documented as of this encounter
--- OUTSIDE RECORDS SUMMARY | 2024-07-16 11:39 | XMS_ITS | Encounter Summary ---
Author Organization [facility] Address [address] [place] [address] Phone Care Team Providers Care Wireless Architect Name Role Phone Chapito Galvez MD Primary Care Provider [phone] Sharad Yates MD Unavailable Nirali Parker RN Unavailable Unavaila Osman Zamarripa MD Unavailable Delia Ornelas INFORMATION SYSTEMS SECURITY MANAGER, PROGRAM SCHEDULE CLERK Unavailable [phone] Selam Gomez INFORMATION SYSTEMS SECURITY MANAGER, PROGRAM SCHEDULE CLERK Unavailable Reason for Visit * Reason Comments Medication Refill Encounter Details Date Type Department Care Team (Late st Contact Info) Description 07/27/[address] [facility] Medical Group - Family Medicine [facility] #[address] [place] [address] Chapito Galvez MD #[address] [address] Medication Refill Social History Tobacco Use Types Packs/Day Years Used Date Smoking Tobacco: Never Smokeless Tobacco: Never Alcohol Use Standard Drinks/Week Comments Yes 0 (1 standard drink = 0.6 oz pur e alcohol) occasional PHQ-2 Answer Date Recorded Total Score - Questions 1-9 0 06/23 Education Answer Date Recorded What is the [...] encounter Miscellaneous Notes * Telephone Encounter - Johanny Lobato RN - 07/27/2023 10:07 AM FINANCIAL SERVICE REP Medication(s) refilled and signed per [facility] Chronic Medication Refill Standing Order for Pediatricand Adult Patients. Requested Prescriptions Pending Prescriptions Disp Refills atorvastatin (LIPITOR) 40 MG Tablet [Pharmacy Med Name: ATORVASTATIN CALCIUM 40MG TABS] 90 Tablet 1 Sig: TAKE ONE TABLET BY MOUTH EVERY DAY Hmg CoA Reductase Inhibitors Protocol Passed - 07/27/2023 9:10 AM Passed - Visit with relevant provider in past 12 months or upcoming 90 days Recent Visits Date Type Provider Dept 05/09/23 Office Visit Chapito Gal[facility] MD [facility] [place] 01/05/23 Office Visit Chapito Galvez MD [facility] 10/20/22 Office Visit Russell Busby MD [facility] [place] Showing recent visits within past 365 days and meeting all other requirements Future Appointments Date Type Provider Dept 09/08/23 Appointment Chapito Galvez MD [facility] [place] Showing future appointments within next 90 days and meeting all other requirements Passed - Lipid panel in past 12 months LDL Date Value Ref Range Status 12/29/2022 35 <130 mg/dL Final HDL CHOLESTEROL Date Value Ref Range Status 12/29/2022 34 (L) >40 mg/dL Final CHOLESTEROL Date Value Ref Range Status 12/29/2022 124 <200 mg/dL Final TRIGLYCERIDES Date Value Ref Range Status 12/29/2022 277 (H) <150 mg/dL Final VLDL Date Value Ref Range Status 12/29/2022 55 (H) 10 - 50 mg/dL Final CHOL/HDL RATIO Date Value Ref Range Status 12/29/2022 3.6 0.0 - 4.4 Final NON-HDL CHOLESTEROL Date Value Ref Range Status 12/29/2022 90 <130 mg/dL Final Passed - CMP in past 12 months SODIUM Date Value Ref Range Status 05/09/2023 136 136 - 145 mmol/L Final POTASSIUM Date Value Ref Range Status 05/09/2023 3.9 3.5 - 5.1 mmol/L Final CHLORIDE Date Value Ref Range Status 05/09/2023 100 98 - 107 mmol/L Final CO2, VENOUS Date Value Ref Range Status 05/09/2023 25 22 - 30 mmol/L Final ANION GAP Date Value Ref Range Status 05/09/2023 14.9 <18.0 mmol/L Final GLUCOSE Date Value Ref Range Status 05/09/2023 328 (H) 70 - 99 mg/dL Final BUN Date Value Ref Range Status 05/09/2023 17 8 - 26 mg/dL Final CREATININE, BLOOD Date Value Ref Range Status 05/09/2023 1.25 0.70 - 1.30 mg/dL Final BUN/CREATININE RATIO Date Value Ref Range Status 05/09/2023 14 12 - 20 ratio Final TOTAL PROTEIN Date Value Ref Range Status 05/09/2023 7.1 6.3 - 8.2 g/dL Final ALBUMIN Date Value Ref Range Status 05/09/2023 4.1 3.5 - 5.0 g/dL Final A/G RATIO Date Value Ref Range Status 05/09/2023 1.4 1.0 - 2.2 Final CALCIUM Date Value Ref Range Status 05/09/2023 8.6 (L) 8.7 - 10.5 mg/dL Final T BILI Date Value Ref Range Status 05/09/2023 0.9 0.2 - 1.2 mg/dL Final SGOT (AST) Date Value Ref Range Status 05/09/2023 18 5 - 34 U/L Final SGPT (ALT) Date Value Ref Range Status 05/09/2023 19 0 - 55 U/L Final ALKALINE PHOSPHATASE Date Value Ref Range Status 05/09/2023 64 40 - 150 U/L Final GFR, EST. NONAFRICAN Date Value Ref Range Status 05/09/2023 57 (L) >=60 Final GFR, EST. Date Value Ref Range Status 05/09/2023 >60 >=60 Final GFR, ESTIMATED Date Value Ref Range Status 05/09/2023 >60 >=60 Final Comment: Creatinine Clearance is the preferred criteria for selecting drug dose adjustments in renally impaired patients. The GFR is provided as additional pertinent clinical information. GFR is reported in mL/min/1.73 sq m. Calculation based on the Chronic Kidney Disease Epidemiology Collaboration (CKD- EPI) equation refitwithout adjustment for race. IS THE PATIENT REQUIRED TO BE FASTING? Date Value Ref Range Status 05/09/2023 No Final NCIAL SERVICE REP documented in this encounter Plan of Treatment Upcoming Encounters Date Type Department Care Team (Late st Contact Info) Description 09/12/2024 8:[address] [facility] #2 [facility] [address] [place] [address] [facility] Lab/Ancillary 09/18/2024 9:30 AM CDT Office Visit [facility] - Cardiology - [place] #2 [place] [address] Delia Ornelas APRN, PROGRAM SCHEDULE CLERK #2 [facility] [address] [place] [address] 09/25/2024 8:30 AM CDT Office Visit [facility] Medical [facility] - Family Medicine - [place] #2 [place] [address] Chapito Galvez MD #[address] [address] documented as of this encounter Visit Diagnoses Not on filedocumented in this encounter Additional Health Concerns Infection Onset Date Last Indicated Resolved Time Respiratory Rule-Out 06/29/2024 06/29/2024 025 9:28 AM FINANCIAL SERVICE REP COVID - 19 06/29/2024 06/29/2024 06/29/2024 9:27 AM FINANCIAL SERVICE REP COVID - 19 Confirmed 06/29/2024 06/29/2024 Assessment Noted Time PHQ-9 Depression Total Score: 0 07/07/19 8:00 AM FINANCIAL SERVICE REP documented as of this encounter Care Teams Wireless Architect Relationship Specialty Start Date End Date Chapito Galvez MD #[address] [place] [address] PCP - General Family Medicine 04/01/15 Sharad Yates MD #2 [facility] [address] [place] [address] Consulting Physician Cardiovascular Disease - Cardiology 02/17/22 04/25/24 Nirali Gruber RN [place] Registered Nurse Cardiology 03/08/22 04/25/24 Osman Gordon MD #2 [facility] [address] [place] [address] Consulting Physician Colon and Rectal Surgery 06/24/23 Delia Ornelas APRN, PROGRAM SCHEDULE CLERK #2 [facility] [address] [place] [address] Nurse Practitioner Cardiology 07/13/23 Selam Gomez APRN, PROGRAM SCHEDULE CLERK #2 [place] [address] Nurse Practitioner Cardiology 05/08/24 documented as of this encounter
--- OUTSIDE RECORDS SUMMARY | 2024-07-16 11:39 | XMS_ITS | Encounter Summary ---
Author Organization [facility] Address [address] [place] [address] Phone Care Team Providers Care Tree Scout Name Role Phone Chapito Galvez MD Primary Care Provider [phone] Sharad Yates MD Unavailable Nirali Parker RN Unavailable Unavaila Osman Zamarripa MD Unavailable Deila Ornelas CORRECTIONAL LIEUTENANT, SENIOR PRODUCT MARKETING MANAGER Unavailable [phone] Selam Gomez CORRECTIONAL LIEUTENANT, SENIOR PRODUCT MARKETING MANAGER Unavailable Reason for Visit * Reason Comments Medication Refill Encounter Details Date Type Department Care Team (Late st Contact Info) Description 10/27/2023 Refill [facility] Medical Group - Family Medicine [facility] #[address] [place] [address] Chapito Galvez MD #[address] [address] Medication Refill Social History Tobacco Use Types [...] encounter Miscellaneous Notes * Telephone Encounter - Meghna Hammond RN - 10/27/2023 1:45 PM CDT Per nursing clinical judgement, provider to review and approve the medication(s) order(s) if appropriate. Requested Prescriptions Pending Prescriptions Disp Refills Ozempic, 0.25 or 0.5 MG/DOSE, 2 MG/3ML Solution Pen-injector [Pharmacy Med Name: OZEMPIC 0.25 OR 0.5MG/[id number] 3ML] 3 mL Sig: INJECT 0.5 MG UNDER THE SKIN ONCE A WEEK GLP-1 Agonists Protocol Passed - 10/27/2023 12:58 PM Passed - Lipid panel result on file in past 12 months LDL Date Value Ref Range Status 09/08/2023 80 <130 mg/dL Final HDL CHOLESTEROL Date Value Ref Range Status 09/08/2023 36 (L) >40 mg/dL Final CHOLESTEROL Date Value Ref Range Status 09/08/2023 180 <200 mg/dL Final TRIGLYCERIDES Date Value Ref Range Status 09/08/2023 318 (H) <150 mg/dL Final VLDL Date Value Ref Range Status 09/08/2023 64 (H) 10 - 50 mg/dL Final CHOL/HDL RATIO Date Value Ref Range Status 09/08/2023 5.0 (H) 0.0 - 4.4 Final NON-HDL CHOLESTEROL Date Value Ref Range Status 09/08/2023 144 (H) <130 mg/dL Final Passed - Visit with relevant provider in past 6 months or upcoming 90 days Recent Visits Date Type Provider Dept 09/08/23 Office Visit Chapito Galvez MD [facility] 05/09/23 Office Visit Chapito Galvez MD [facility] Showing recent visits within past 182 days and meeting all other requirements Future Appointments Date Type Provider Dept 01/10/24 Appointment Chapito Galvez MD [facility] Showing future appointments within next 90 days and meeting all other requirements Passed - HgA1C result on record in past 6 months HGB-A1C Date Value Ref Range Status 09/08/2023 7.7 (H) 4.0 - 6.0 % Final Passed - GFR on record in past 6 months GFR, EST. NONAFRICAN Date Value Ref Range Status 09/08/2023 55 (L) >=60 Final documented in this encounter Plan of Treatment Upcoming Encounters Date Type Department Care Team (Late st Contact Info) Description 09/12/2024 8:00 AM CDT Lab [facility] PHYSICIAN [facility] #2 [facility] [address] [place] [address] [facility] Lab/Ancillary 09/18/2024 9:30 AM CDT [facility] - [facility]iology - [place] #2 [place] [address] Delia Ornelas APRN, SENIOR PRODUCT MARKETING MANAGER #2 [facility], [address] [place] [address] 09/25/2024 8:30 AM CDT Office Visit [facility] - Family Medicine - [place] #2 [place] [address] Chapito Galvez MD #2 [facility] [address] [place] [address] documented as of this encounter Visit Diagnoses Not on filedocumented in this encounter Additional Health Concerns Infection Onset Date Last Indicated Resolved Time Respiratory Rule-Out 06/29/2024 06/29/2024 025 9:28 AM HEALTH BENEFITS SPECIALIST COVID - 19 06/29/2024 06/29/2024 06/29/2024 9:27 AM HEALTH BENEFITS SPECIALIST COVID - 19 Confirmed 06/29/2024 06/29/2024 Assessment Noted Time PHQ-9 Depression Total Score: 0 09/08/19 24 8:24 AM CDT documented as of this encounter Care Teams Tree Scout Relationship Specialty Start Date End Date Chapito Galvez MD #2 [facility] [address] [place] [address] PCP - General Family Medicine 04/01/15 Sharad Yates MD #2 [facility] [address] [place] [address] Consulting Physician Cardiovascular Disease - Cardiology 02/17/22 04/25/24 Nirali Gruber RN [place] Registered Nurse Cardiology 03/08/22 04/25/24 Osman Gordon MD [facility]2 [facility] [address] [place] [address] Consulting Physician Colon and Rectal Surgery 06/24/23 Delia Ornelas APRN, SENIOR PRODUCT MARKETING MANAGER #2 [facility] [address] [place] [address] Nurse Practitioner Cardiology 07/13/23 Selam Gomez APRN, SENIOR PRODUCT MARKETING MANAGER #2 [facility] [place] [place] [address] Nurse Practitioner Cardiology 05/08/24 documented as of this encounter
--- OUTSIDE RECORDS SUMMARY | 2024-07-16 11:39 | XMS_ITS | Encounter Summary ---
Author Organization [facility] Address [address] [place] [address] Phone Care Team Providers Care Life Scientist Name Role Phone Chapito Galvez MD Primary Care Provider Sharad Yates MD Unavailable Nirali Parker RN Unavailable Unavaila Osman Zamarripa MD Unavailable Delia Ornelas INSIDE SALES ADMINISTRATOR, LEAK HUNTER Unavailable [phone] Selam Gomez INSIDE SALES ADMINISTRATOR, LEAK HUNTER Unavailable Reason for Visit * Reason Comments Medication Refill Encounter Details Date Type Department Care Team (Late st Contact Info) Description 08/17/2023 Refill [facility] - Family Medicine [facility] #[address] [place] [address] Chapito Galvez MD #[address] [address] Medication Refill Social History Tobacco Use Types [...] Telephone Encounter - Johanny Lobato RN - 08/17/2023 1:24 PM CDT Medication failed the protocol, provider to review and approve the medication order if appropriate. Requested Prescriptions Pending Prescriptions Disp Refills citalopram (CeleXA) 10 MG Tablet [Pharmacy Med Name: CITALOPRAM HYDROBROMIDE 10MG TABS] 90 Tablet 1 Sig: TAKE ONE TABLET BY MOUTH EVERY DAY Citalopram (Celexa) (6 Month Refill Only) Protocol Failed - 08/17/2023 1:22 PM Failed - Has an encounter in the past 6 months with a depression, anxiety, adjustment disorder, OCD, or PTSD visit diagnosis Passed - Citalopram dose is less than or equal to 40mg / day Passed - Visit with relevant provider in past 6 months or upcoming 90 days Recent Visits Date Type Provider Dept 05/09/23 Office Visit Chapito Galvez MD [facility] [place] Showing recent visits within past 182 days and meeting all other requirements Future Appointments Date Type Provider Dept 09/08/23 Appointment Chapito Galvez MD [facility] Showing future appointments within next 90 days and meeting all other requirements Passed - Patient has established therapy with Citalopram for at least 6 months documented in this encounter Plan of Treatment Upcoming Encounters Date Type Department Care Team (Late st Contact Info) Description 09/12/2024 8:00 AM CDT Lab [facility] [address] [place] [place] [address] [place] Lab/Ancillary 09/18/2024 9:30 AM CDT [facility] - [place] [facility] [place] [address] Delia Ornelas APRN, LEAK HUNTER #2 [facility] [place] [address] [address] 09/25/2024 8:30 AM CDT Office Visit [facility] - Family [facility] #[address] [place] [address] Chapito Galvez MD #[address] [address] documented as of this encounter Visit Diagnoses Not on filedocumented in this encounter Additional Health Concerns Infection Onset Date Last Indicated Resolved Time Respiratory Rule-Out 06/29/2024 06/29/2024 025 9:28 AM EDITORIAL PROJECT MANAGER COVID - 19 06/29/2024 06/29/2024 06/29/2024 9:27 AM EDITORIAL PROJECT MANAGER COVID - 19 Confirmed 06/29/2024 06/29/2024 Assessment Noted Time PHQ-9 Depression Total Score: 0 07/07/19 23 8:00 AM EDITORIAL PROJECT MANAGER documented as of this encounter Care Teams Life Scientist Relationship Specialty Start Date End Date Chapito Galvez MD [address] [address] PCP - General Family Medicine 04/01/15 Sharad Yates MD #[address] [address] Consulting Physician Cardiovascular Disease - Cardiology 02/17/22 04/25/24 Nirali Gruber RN [place] Registered Nurse Cardiology 03/08/22 04/25/24 Osman Gordon MD #[address] [address] Consulting Physician Colon and Rectal Surgery 06/24/23 Delia Ornelas APRN, LEAK HUNTER #2 [facility], [address] [place] [address] Nurse Practitioner Cardiology 07/13/23 Selam Gomez APRN, LEAK HUNTER #2 [place] [address] Nurse Practitioner Cardiology 05/08/24 documented as of this encounter
--- OUTSIDE RECORDS SUMMARY | 2024-07-16 11:39 | XMS_ITS | Encounter Summary ---
Author Organization [facility] Address [address] [place] [address] Phone Care Team Providers Care Video Games Storywriter Name Role Phone Chapito Galvez MD Primary Care Provider [phone] Sharad Yates MD Unavailable Nirali Parker RN Unavailable Unavaila Osman Zamarripa MD Unavailable Delia Ornelas MED SPEC, ARTIFICIAL BREEDING RANCH SUPERVISOR Unavailable [phone] Selam Gomez MED SPEC, ARTIFICIAL BREEDING RANCH SUPERVISOR Unavailable Reason for Visit * Reason Onset Date Comments New Med Request 08/08/2023 Encounter Details Date Type Department Care Team (Late st Contact Info) Description 08/08/2023 Telephone [facility] Medical Group - Family [facility] #2 [place] [address] Chapito Galvez MD #[address] [address] New Med Request Social History Tobacco Use Types Packs/Day Years [...] encounter Miscellaneous Notes * Telephone Encounter - Marlin Parks - 08/08/2023 2:14 PM CDT Patient is wanting to know if he would be a candidate for OZEMPIC, and if Lenny could order for him. Please call patient either way. Thank you! documented in this encounter Plan of Treatment Upcoming Encounters Date Type Department Care Team (Late st Contact Info) Description 09/12/2024 8:00 AM CDT Lab [facility] #2 [facility] [address] [place] [address] [facility] Lab/Ancillary 09/18/2024 9:30 AM CDT Office Visit [facility] Medical Group - Cardiology - [place] #2 [place] [address] Delia Ornelas APRN, ARTIFICIAL BREEDING RANCH SUPERVISOR #2 [facility], [address] [place] [address] 09/25/2024 8:30 AM CDT Office [facility] - Family Medicine - [place] #2 [place] [address] Chapito Galvez MD #2 [facility] [address] [place] [address] documented as of this encounter Visit Diagnoses Not on filedocumented in this encounter Additional Health Concerns Infection Onset Date Last Indicated Resolved Time Respiratory Rule-Out 06/29/2024 06/29/2024 025 9:28 AM RECONSIGNMENT CLERK COVID - 19 06/29/2024 06/29/2024 06/29/2024 9:27 AM RECONSIGNMENT CLERK COVID - 19 Confirmed 06/29/2024 06/29/2024 Assessment Noted Time PHQ-9 Depression Total Score: 0 07/07/19 23 8:00 AM RECONSIGNMENT CLERK documented as of this encounter Care Teams Video Games Storywriter Relationship Specialty Start Date End Date Chapito Galvez MD [facility] [address] [place] [address] PCP - General Family Medicine 04/01/15 Sharad Yates MD #2 [facility] [address] [place] [address] Consulting Physician Cardiovascular Disease - Cardiology 02/17/22 04/25/24 Nirali Gruber RN [place] Registered Nurse Cardiology 03/08/22 04/25/24 Osman Gordon MD #[address] [address] Consulting Physician Colon and Rectal Surgery 06/24/23 Delia Ornelas APRN, ARTIFICIAL BREEDING RANCH SUPERVISOR #2 [facility] [address] [place] [address] Nurse Practitioner Cardiology 07/13/23 Selam Gomez APRN, ARTIFICIAL BREEDING RANCH SUPERVISOR #2 [place] [address] Nurse Practitioner Cardiology 05/08/24 documented as of this encounter
--- OUTSIDE RECORDS SUMMARY | 2024-07-16 11:39 | XMS_ITS | Encounter Summary ---
Author Organization [facility] Address [address] [place] [address] Phone Care Team Providers Care Plumbing Instructor Name Role Phone Chapito Galvez MD Primary Care Provider [phone] Sharad Yates MD Unavailable Nirali Parker RN Unavailable Unavaila Osman Zamarripa MD Unavailable Delia Ornelas MUSIC REHABILITATION THERAPIST, MBA INTERN Unavailable [phone] Selam Gomez MUSIC REHABILITATION THERAPIST, MBA INTERN Unavailable Reason for Visit * Reason Comments Medication Refill Encounter Details Date Type Department Care Team (Late st Contact Info) Description 07/27/2022 Refill [facility] - Family Medicine [facility] #2 [place] [address] Chapito Galvez MD #[address] [address] Medication Refill Social History Tobacco Use Types [...] Coronavirus/COVID-19? No / Unsure 07/07/2022 8:53 AM DANCE INSTRUCTOR documented as of this encounter Miscellaneous Notes * Telephone Encounter - Zayda Langston RN - 07/27/2022 1:25 PM CST Medication failed the protocol, provider to review and approve the medication order if appropriate. Requested Prescriptions Pending Prescriptions Disp Refills citalopram (CeleXA) 10 MG Tablet [Pharmacy Med Name: CITALOPRAM HYDROBROMIDE 10MG TABS] 90 Tablet 1 Sig: TAKE ONE TABLET BY MOUTH EVERY DAY Citalopram (Celexa) (6 Month Refill Only) Protocol Failed - 07/27/2022 10:04 AM Failed - Has an encounter in the past 6 months with a depression, anxiety, adjustment disorder, OCD, or PTSD visit diagnosis Passed - Citalopram dose is less than or equal to 40mg / day Passed - Visit with relevant provider in past 6 months or upcoming 90 days Recent Visits Date Type Provider Dept 07/07/22 Office Visit Chapito Galvez MD [facility] [place] 03/05/22 Office Visit Chapito Galvez MD [facility] [place] Showing recent visits within past 182 days and meeting all other requirements Future Appointments No visits were found meeting these conditions. Showing future appointments within next 90 days and meeting all other requirements Passed - Patient has established therapy with Citalopram for at least 6 months E INSTRUCTOR documented in this encounter Plan of Treatment Upcoming Encounters Date Type Department Care Team (Late st Contact Info) Description 09/12/2024 8:00 AM CDT Lab [facility] [address] [place] [address] [place] Lab/Ancillary 09/18/2024 9:30 AM CDT Office Visit [facility] - Cardiology - [place] #2 [place] [address] Delia Ornelas APRN, MBA INTERN #2 [facility] [address] [place] [address] 09/25/2024 8:30 AM CDT Office Visit [facility] - Family Medicine - [place] #2 [place] [address] Chapito Galvez MD #[address] [address] documented as of this encounter Visit Diagnoses Not on filedocumented in this encounter Additional Health Concerns Infection Onset Date Last Indicated Resolved Time Respiratory Rule-Out 06/29/2024 06/29/2024 025 9:28 AM DANCE INSTRUCTOR COVID - 19 06/29/2024 06/29/2024 06/29/2024 9:27 AM DANCE INSTRUCTOR COVID - 19 Confirmed 06/29/2024 06/29/2024 Assessment Noted Time PHQ-9 Depression Total Score: 0 07/07/19 23 8:00 AM DANCE INSTRUCTOR documented as of this encounter Care Teams Plumbing Instructor Relationship Specialty Start Date End Date Chapito Galvez MD #[address] [address] PCP - General Family Medicine 04/01/15 Sharad Yates MD #[address] [address] Consulting Physician Cardiovascular Disease - Cardiology 02/17/22 04/25/24 Nirali Gruber, REZA [place] Registered Nurse Cardiology 03/08/22 04/25/24 Osman Gordon MD #[address] [address] Consulting Physician Colon and Rectal Surgery 06/24/23 Delia Ornelas APRN, MBA INTERN #2 [facility] [address] [place] [address] Nurse Practitioner Cardiology 07/13/23 Selam Gomez APRN, MBA INTERN #2 [place] [address] Nurse Practitioner Cardiology 05/08/24 documented as of this encounter
--- OUTSIDE RECORDS SUMMARY | 2024-07-16 11:39 | XMS_ITS | Encounter Summary ---
Author Organization [facility] Address [address] [place] [address] Phone Care Team Providers Care Change Release Manager Name Role Phone Chapito Galvez MD Primary Care Provider [phone] Sharad Yates MD Unavailable Nirali Parker RN Unavailable Unavaila Osman Zamarripa MD Unavailable Delia Ornelas GANDY DANCER, KICKING MACHINE OPERATOR Unavailable [phone] Selam Gomez GANDY DANCER, KICKING MACHINE OPERATOR Unavailable Reason for Visit * Reason Comments Medication Refill Encounter Details Date Type Department Care Team (Late st Contact Info) Description 12/22/2020 Refill [facility] Medical Group - Family Medicine [facility] #2 [place] [address] Chapito Galvez MD #[address] [address] Medication Refill Social History Tobacco Use Types Packs/Day Years Used Date Smoking Tobacco: Never Smokeless Tobacco: Never Alcohol Use Standard Drinks/Week Comments Yes 0 (1 standard drink = 0.6 oz pur e alcohol) rarely PHQ-2 Answer Date Recorded Total Score - Questions 1-9 0 04/0 09/2020 Sexually Active Control Partners Comments Yes Female [...] have Coronavirus / COVID-19? No / Unsure 12/23/2020 8:02 AM CDT documented as of this encounter Miscellaneous Notes * Telephone Encounter - Chapito Galvez MD - 12/23/2020 9:41 AM CDT Prescription pending signature * Telephone Encounter - Zayda Langston RN - 12/23/2020 9:01 AM CDT [place] 10/22/20 - last appt 10/06/20 - follow up 01/05/21 Medication failed the protocol, provider to review and approve the medication order if appropriate. Requested Prescriptions Pending Prescriptions Disp Refills zolpidem (AMBIEN) 5 MG Tablet [Pharmacy Med Name: ZOLPIDEM TARTRATE 5MG TABS] 30 Tablet 0 Sig: TAKE ONE TABLET BY MOUTH AT BEDTIME NEEDED FOR SLEEP There is no refill protocol information for this order documented in this encounter Plan of Treatment Upcoming Encounters Date Type Department Care Team (Late st Contact Info) Description 09/12/2024 8:00 AM CDT Lab [facility] [address] [place] [address] [facility] Lab/Ancillary 09/18/2024 9:30 AM CDT Office Visit [facility] - Cardiology - [place] #2 [place] [address] Delia Ornelas APRN, KICKING MACHINE OPERATOR #2 [facility], [address] [place] [address] 09/25/2024 8:30 AM CDT Office Visit [facility] - Family [facility] #2 [place] [address] Chapito Galvez MD #[address] [address] documented as of this encounter Visit Diagnoses Diagnosis Primary insomnia Persistent disorder of initiating or maintaining sleep documented in this encounter Additional Health Concerns Infection Onset Date Last Indicated Resolved Time Respiratory Rule-Out 06/29/2024 06/29/2024 025 9:28 AM REVIEW CONSULTANT COVID - 19 06/29/2024 06/29/2024 06/29/2024 9:27 AM REVIEW CONSULTANT COVID - 19 Confirmed 06/29/2024 06/29/2024 Assessment Noted Time PHQ-9 Depression Total Score: 0 08/26/19 21 8:52 AM CDT documented as of this encounter Care Teams Change Release Manager Relationship Specialty Start Date End Date Chapito Galvez MD #[address] [address] PCP - General Family Medicine 04/01/15 Sharad Yates MD #[address] [address] Consulting Physician Cardiovascular Disease - Cardiology 02/17/22 04/25/24 Nirali Gruber RN [place] Registered Nurse Cardiology 03/08/22 04/25/24 Osman Gordon MD #[address] [address] Consulting Physician Colon and Rectal Surgery 06/24/23 Delia Ornelas APRN, KICKING MACHINE OPERATOR #[address] [address] Nurse Practitioner Cardiology 07/13/23 Selam Gomez APRN, KICKING MACHINE OPERATOR #2 [place] [address] Nurse Practitioner Cardiology 05/08/24 documented as of this encounter
--- OUTSIDE RECORDS SUMMARY | 2024-07-16 11:39 | XMS_ITS | Encounter Summary ---
Author Organization [facility] Address [address] [place] [address] Phone Care Team Providers Care Marketing Administrator Name Role Phone Chapito Galvez MD Primary Care Provider [phone] Sharad Yates MD Unavailable Nirali Parker RN Unavailable Unavaila Osman Zamarripa MD Unavailable Delia Ornelas SCRAP CARRIER, CARBIDE GRINDER Unavailable [phone] Selam Gomez SCRAP CARRIER, CARBIDE GRINDER Unavailable Reason for Visit * Reason Comments Medication Refill Encounter Details Date Type Department Care Team (Late st Contact Info) Description 02/04/2023 Refill [facility] Medical Group - Family Medicine [facility] #[address] [place] [address] Chapito Galvez MD #[address] [address] Medication Refill Social History Tobacco Use Types [...] suspected to have Coronavirus/COVID-19? No / Unsure 01/05/2023 7:55 AM CDT documented as of this encounter Miscellaneous Notes * Telephone Encounter - Zayda Langston RN - 02/04/2023 1:45 PM CDT Medication failed the protocol, provider to review and approve the medication order if appropriate. Requested Prescriptions Pending Prescriptions Disp Refills citalopram (CeleXA) 10 MG Tablet [Pharmacy Med Name: CITALOPRAM HYDROBROMIDE 10MG TABS] 90 Tablet 1 Sig: TAKE ONE TABLET BY MOUTH EVERY DAY Citalopram (Celexa) (6 Month Refill Only) Protocol Failed - 02/04/2023 9:28 AM Failed - Has an encounter in the past 6 months with a depression, anxiety, adjustment disorder, OCD, or PTSD visit diagnosis Passed - Citalopram dose is less than or equal to 40mg / day Passed - Visit with relevant provider in past 6 months or upcoming 90 days Recent Visits Date Type Provider Dept 01/05/23 Office Visit Chapito Galvez MD [facility] 10/20/22 Office Visit Russell Busby MD [facility] [place] Showing recent visits within past 182 [...] Lab [facility] #[address] [address] [facility] Lab/Ancillary 09/18/2024 9:30 AM CDT Office Visit [facility] - Cardiology - [place] #[address] [place] [address] Delia Ornelas APRN, CARBIDE GRINDER #2 [facility] [place], [facility] [address] [place] [address] 09/25/2024 8:30 AM CDT Office Visit [facility] - Family Medicine - [place] #[address] [place] [address] Chapito Galvez MD #[address] [address] documented as of this encounter Visit Diagnoses Not on filedocumented in this encounter Additional Health Concerns Infection Onset Date Last Indicated Resolved Time Respiratory Rule-Out 06/29/2024 06/29/2024 025 9:28 AM STATE ASSESSED PROPERTIES DIRECTOR COVID - 19 06/29/2024 06/29/2024 06/29/2024 9:27 AM STATE ASSESSED PROPERTIES DIRECTOR COVID - 19 Confirmed 06/29/2024 06/29/2024 Assessment Noted Time PHQ-9 Depression Total Score: 0 07/07/19 23 8:00 AM STATE ASSESSED PROPERTIES DIRECTOR documented as of this encounter Care Teams Marketing Administrator Relationship Specialty Start Date End Date Chapito Galvez MD #[address] [address] PCP - General Family Medicine 04/01/15 Sharad Yates MD #[address] [address] Consulting Physician Cardiovascular Disease - Cardiology 02/17/22 04/25/24 Nirali Gruber, REZA [place] Registered Nurse Cardiology 03/08/22 04/25/24 Osman Gordon MD #[address] [address] Consulting Physician Colon and Rectal Surgery 06/24/23 Delia Ornelas APRN, CARBIDE GRINDER #2 [facility], [address] [place] [address] Nurse Practitioner Cardiology 07/13/23 Selam Gomez APRN, CARBIDE GRINDER #2 [place] [address] Nurse Practitioner Cardiology 05/08/24 documented as of this encounter
--- OUTSIDE RECORDS SUMMARY | 2024-07-16 11:39 | XMS_ITS | Encounter Summary ---
Author Organization [facility] Address [address] [place] [address] Phone Care Team Providers Care County Administrator Name Role Phone Chapito Galvez MD Primary Care Provider Sharad Yates MD Unavailable Nirali Parker RN Unavailable Unavaila Osman Zamarripa MD Unavailable Delia Ornelas SECURITIES ADVISER, MD PSYCHIATRY Unavailable [phone] Selam Gomez SECURITIES ADVISER, MD PSYCHIATRY Unavailable Reason for Visit * Reason Comments Medication Refill Encounter Details Date Type Department Care Team (Late st Contact Info) Description 10/21/2020 Refill [facility] Medical Group - Family Medicine [facility] #2 [place] [address] Chapito Galvez MD #[address] [address] Medication Refill Social History Tobacco Use Types [...] have Coronavirus / COVID-19? No / Unsure 10/06/2020 5:00 PM CDT documented as of this encounter Miscellaneous Notes * Telephone Encounter - Chapito Galvez MD - 10/22/2020 12:39 PM CDT Prescription pending signature * Telephone Encounter - Zayda Langston RN - 10/22/2020 12:34 PM CDT Last Rx 04/30/20 Medication failed the protocol, provider to review and approve the medication order if appropriate. Requested Prescriptions Pending Prescriptions Disp Refills zolpidem (AMBIEN) 5 MG Tablet [Pharmacy Med Name: ZOLPIDEM TARTRATE 5MG TABS] 30 Tablet 0 Sig: TAKE ONE TABLET BY MOUTH AT BEDTIME NEEDED FOR SLEEP [facility] Not Delegated - Psychiatry: Anxiolytics/Hypnotics Failed - 10/22/2020 12:34 PM Failed - This refill cannot be delegated Passed - Valid encounter within last 6 months Past Office Visits Recent Outpatient Visits 2 weeks ago Coronary artery disease involving [place] heart, unspecified vessel or lesion type, unspecified whether angina present [facility] - Chapito Arrington MD 1 month ago Primary insomnia [facility] Chapito Lopez MD 6 months ago Essential hypertension [facility] Chapito Lopez MD 10 months ago Essential hypertension [facility] Chapito Lopez MD 1 year ago Essential hypertension [facility] Chapito Lopez MD Upcoming Appointments Future Appointments In 2 months Lab, [facility], [facility] In 2 months Chapito Galvez MD [facility] - Recent and Past Visits Recent Visits Date Type Provider Dept 10/06/20 Office Visit Chapito Galvez MD [facility] 08/25/20 Office Visit Chapito Galvez MD [facility] 04/22/20 Office Visit Chapito Galvez MD [facility] 12/27/19 Office Visit Chapito Galvez MD [facility] 08/27/19 Telemedicine Chapito Galvez MD [facility] [place] Showing recent visits within past 460 days with a meds authorizing provider and meeting all other requirements Future Appointments Date Type Provider Dept 01/05/21 Appointment Chapito Galvez MD [facility] Showing future appointments within next 90 days with a meds authorizing provider and meeting all other requirements documented in this encounter Plan of Treatment Upcoming Encounters Date Type Department Care Team (Late st Contact Info) Description 09/12/2024 8:00 AM CDT Lab [facility] #2 [facility] [address] [place] [address] [facility] [place] Lab/Ancillary 09/18/2024 9:30 AM CDT Office Visit [facility] Medical Group - Cardiology - [place] #2 [place] [address] Delia Ornelas APRN, MD PSYCHIATRY #2 [facility], [address] [place] [address] 09/25/2024 8:30 AM CDT Office Visit [facility] Medical Group - Family Medicine - [place] #2 [place] [address] Chapito Galvez MD #2 [facility] [address] [place] [address] documented as of this encounter Visit Diagnoses Diagnosis Primary insomnia Persistent disorder of initiating or maintaining sleep documented in this encounter Additional Health Concerns Infection Onset Date Last Indicated Resolved Time Respiratory Rule-Out 06/29/2024 06/29/2024 025 9:28 AM HOSTED SERVICES ANALYST COVID - 19 06/29/2024 06/29/2024 06/29/2024 9:27 AM HOSTED SERVICES ANALYST COVID - 19 Confirmed 06/29/2024 06/29/2024 Assessment Noted Time PHQ-9 Depression Total Score: 0 08/26/19 21 8:52 AM CDT documented as of this encounter Care Teams County Administrator Relationship Specialty Start Date End Date Chapito Galvez MD #2 [facility] [address] [place] [address] PCP - General Family Medicine 04/01/15 Sharad Yates MD #[address] [address] Consulting Physician Cardiovascular Disease - Cardiology 02/17/22 04/25/24 Nirali Gruber RN [place] Registered Nurse Cardiology 03/08/22 04/25/24 Osman Gordon MD #[address] [address] Consulting Physician Colon and Rectal Surgery 06/24/23 Delia Ornelas APRN, MD PSYCHIATRY #2 [facility] [address] [address] Nurse Practitioner Cardiology 07/13/23 Selam Gomez APRN, MD PSYCHIATRY #2 [place] [address] Nurse Practitioner Cardiology 05/08/24 documented as of this encounter
[2024-07-16 12:21] LABS: Albumin Level 4.7 g/dL (3.5-5.1)
[2024-07-16 12:24] LABS: Anion Gap 12 mmol/L (4-12); Blood Urea Nitrogen 33 mg/dL (9-20); Calcium 9.4 mg/dL (8.4-10.2); Carbon Dioxide 28 mmol/L (22-30); Chloride 98 mmol/L (98-107); Estimated Glomerular Filt Rate 46; Glucose 104 mg/dL (65-110); Potassium 3.6 mmol/L (3.4-5.0); Sodium 138 mmol/L (137-145)
[2024-07-16 12:29] LABS: Basophils Absolute Auto 0.1 K/mm3 (0.0-0.1); Basophils Percent Auto 0.8 % (0.2-1.2); Eosinophils Absolute Auto 0.1 K/mm3 (0-0.3); Eosinophils Percent Auto 1.4 % (0-4.4); Hematocrit 38.9 % (42.0-52.0); Hemoglobin 13.3 g/dL (14.0-18.0); Immature Granulocyte Absolute 0.05 K/mm3 (0.00-0.031); Immature Granulocyte Percent A 0.5 % (0-0.5); Lymphocytes Absolute Auto 2.61 K/mm3 (0.9-3.2); Lymphocytes Percent Auto 25.9 % (18.3-44.2); Mean Corpuscular HGB Conc 34.2 g/dl (32-36); Mean Corpuscular Hemoglobin 31.2 pg (26-34); Mean Corpuscular Volume 91.3 fl (80-100); Mean Platelet Volume 9.2 fl (7.4-10.4); Monocytes Absolute Auto 0.8 K/mm3 (0.1-0.6); Monocytes Percent Auto 7.7 % (2.6-8.5); Neutrophils Absolute Auto 6.4 K/mm3 (1.3-6.7); Neutrophils Percent Auto 63.7 % (45.5-73.1); Platelet Count Result 261 k/mm3 (150-375); Red Blood Count 4.26 M/mm3 (4.6-6.20); Red Cell Distribution Width 13.6 % (11.5-14.5); White Blood Count 10.1 K/mm3 (4.5-10.0)
[2024-07-16 12:39] LABS: Urine Cotinine NEGATIVE
[2024-07-16 13:19] LABS: MRSA (PCR) NOT DETECTED (NOT DETECTE)
[2024-07-16 14:16] LABS: Hemoglobin A1C 6.1 % (<5.7)
== END 2024-07-16 10:16 | disposition home or self-care (01) ==
PROVIDERS: Anesthesiology; PCP Internal Medicine; Visit Provider Orthopaedic Surgery
DX: Z01.812 Encounter for preprocedural laboratory examination (principal); M17.12 Unilateral primary osteoarthritis, left knee; E11.9 Type 2 diabetes mellitus without complications
CPT/HCPCS: 36415; 80048; 80307; 82040; 83036; 85025; 87641

== ENCOUNTER 2024-08-09 01:09 | Day surgery (SDC) | payer MEDICARE, SELFPAY ==
--- NOTE | 2024-07-16 10:20 | PC.NURSE ---
Report to the Outpatient Waiting Room, entrance under the green pavilion located off [facility], at time __6 AM on date _08/09/24 . Planned Procedure Time: __7:30 AM .? Time changes happen often and if your time is changed the preop area will call you the afternoon before. - You and your visitor will be asked to self-screen and do not enter if you have any COVID symptoms. Please call surgeon if you need to reschedule. - A mask is optional within the hospital at this time. Patients may have clear liquids (water, carbonated beverages, clear teas, apple juice) until 3 hours prior to surgery ( 4:30 AM) with a maximum of 20 ounces. - No food from midnight until time of surgery and no smoking, or chewing tobacco (or any form of nicotine). No chewing gum, candy or mints. Take only the following medications with a SIP of water on the morning of surgery: ___AMLODIPINE_ DO NOT STOP ANY OF YOUR OTHER PRESCRIPTION MEDICATIONS PRIOR TO SURGERY EXCEPT THE FOLLOWING Hold all vitamins and supplements for 3 days per anesthesiologist.LAST DOSE 08/05/24 Medications to discontinue per physician ____DICLOFENAC HOLD 7 DAYS PRE OP PER DR MERCADO Date to take last dose____08/01/24 Please no make-up, nail british, hairspray, perfume, deodorant, or body powder the day of surgery.? No jewelry (including any body piercings) or valuables the day of surgery, leave them at home.? Please take a shower or bath the night before, or the morning of, surgery with an antibacterial soap.? Wear comfortable, loose fitting clothing.? Children are encouraged to wear pajamas. - Jewelry must be removed prior to entering the operating room.? Rings and piercings that are not removed may be cut off. - The hospital will not accept responsibility for valuables.? - Please leave all valuables, including medications, at home the day of surgery. If you are going home after surgery, a licensed regional driver must drive you home.? - NO public transportation without another adult if you receive anesthesia. - We recommend that an adult stay with you for 24 hours following discharge. - We also recommend that you do not drive, make important decision, drink alcoholic beverages, or take any drugs that were not prescribed by your health care provider for at least 24 hours after your discharge time. Follow any additional instructions given to you from your surgeon. VERBAL AND WRITTEN instructions given to _PATIENT and asked if any additional questions and then verbalized understanding. Patient advised to call surgeon office or pre surgery nurse liaison [phone] if any additional questions.
[2024-07-16 10:58] VITALS: BMI 35.1
[2024-07-16 11:18] VITALS: BP 143/76; PULSE 68; RESP 18; TEMP 36.7; O2SAT 97
[2024-08-09] VITALS (17 sets, daily range): BP systolic 143–171; BP diastolic 48–95; PULSE 71–95; RESP 14–20; TEMP 36.3–36.8; O2SAT 92–100
--- NOTE | ~2024-08-09 | XR_ITS ---
[id number] Ordering provider: Roni Eldridge MD History: . POST OP LEFT TKA . Comparison: None. FINDINGS: BONES: No acute fracture or dislocation. JOINT SPACES: Total knee arthroplasty. SOFT TISSUES: Air seen in the subcutaneous tissues. IMPRESSION: No acute osseous abnormality left knee. Total knee arthroplasty. Reviewed, dictated and finalized at location A.
--- OUTSIDE RECORDS SUMMARY | 2024-08-09 01:12 | XMS_ITS | Encounter Summary ---
Author Organization [facility] Address [address] [place] [address] Phone Care Team Providers Care Sheet Metal Pattern Cutter Name Role Phone Chapito Galvez MD Primary Care Provider [phone] Sharad Yates MD Unavailable Nirali Parker RN Unavailable Unavaila Osman Zamarripa MD Unavailable Delia Ornelas OIL PLANT OPERATOR, SECRETARIAL TEACHER Unavailable [phone] Selam Gomez OIL PLANT OPERATOR, SECRETARIAL TEACHER Unavailable Reason for Visit * Reason Onset Date Comments Medication Refill 07/02/2021 Encounter Details Date Type Department Care Team (Late st Contact Info) Description 07/02/2021 Refill [facility] Medical [facility] - [facility] #2 [place] [address] Chapito Galvez MD #[address] [address] Medication Refill Social History Tobacco Use Types [...] receives 100 mg daily as originally prescribed. OPEDIC MECHANIC * Telephone Encounter - Jenni English - 07/02/2021 7:43 AM CST Received a faxed Rx request from pharmacy. Reordered refill medication(s) requested and pended for nurse and physician/JOSE review. Refill encounter routed to nurse John's pool for processing. Losartan 100 MG is on back order. Can pt take 4 25 MG tabs for 30 days until we can get 100 MG again? Thanks OPEDIC MECHANIC documented in this encounter Plan of Treatment Upcoming Encounters Date Type Department Care Team (Late st Contact Info) Description 09/12/2024 8:00 AM CDT Lab [facility] [place] [facility] #2 [facility] [address] [place] [address] [place] Lab/Ancillary 09/18/2024 9:30 AM CDT Office Visit [facility] Medical Group - Cardiology - [place] #2 [place] [address] Delia Ornelas APRN, SECRETARIAL TEACHER #2 [facility], [address] [place] [address] 09/25/2024 8:30 AM CDT Office Visit [facility] - Family Medicine - [place] #2 [place] [address] Chapito Galvez MD #2 [facility] [address] [place] [address] documented as of this encounter Visit Diagnoses Not on filedocumented in this encounter Additional Health Concerns Infection Onset Date Last Indicated Resolved Time Respiratory Rule-Out 06/29/2024 06/29/2024 025 9:28 AM ORTHOPEDIC MECHANIC COVID - 19 06/29/2024 06/29/2024 06/29/2024 9:27 AM ORTHOPEDIC MECHANIC COVID - 19 Confirmed 06/29/2024 06/29/2024 025 12:16 AM ORTHOPEDIC MECHANIC Assessment Noted Time PHQ-9 Depression Total Score: 0 05/11/20 21 8:21 AM ORTHOPEDIC MECHANIC documented as of this encounter Care Teams Sheet Metal Pattern Cutter Relationship Specialty Start Date End Date Chapito Galvez MD #2 [facility] [address] [place] [address] PCP - General Family Medicine 04/01/15 Sharad Yates MD #2 [facility] [address] [place] [address] Consulting Physician Cardiovascular Disease - Cardiology 02/17/22 04/25/24 Nirali Gruber RN [place] Registered Nurse Cardiology 03/08/22 04/25/24 Osman Gordon MD [facility]2 [facility] [address] [place] [address] Consulting Physician Colon and Rectal Surgery 06/24/23 Delia Ornelas APRN, SECRETARIAL TEACHER #2 [facility] [place] [facility] [address] [place] [address] Nurse Practitioner Cardiology 07/13/23 Selam Gomez APRN, SECRETARIAL TEACHER #2 [place] [address] Nurse Practitioner Cardiology 05/08/24 documented as of this encounter
--- OUTSIDE RECORDS SUMMARY | 2024-08-09 01:12 | XMS_ITS | Encounter Summary ---
Author Organization [facility] Address [address] [place] [address] Phone Care Team Providers Care Quality Control Engineering Technician Name Role Phone Chapito Galvez MD Primary Care Provider Sharad Yates MD Unavailable Nirali Parker RN Unavailable Unavaila Osman Zamarripa MD Unavailable Delia Ornelas PRECINCT COMMANDING OFFICER, TELEHEALTH DIRECTOR Unavailable [phone] Selam Gomez PRECINCT COMMANDING OFFICER, TELEHEALTH DIRECTOR Unavailable Reason for Visit * Reason Comments Medication Refill Encounter Details Date Type Department Care Team (Late st Contact Info) Description 01/28/2021 Refill [facility] Medical Group - Family Medicine [facility] #2 [place] [address] Chapito Galvez MD #[address] [address] Medication Refill Social History Tobacco Use Types [...] [place] 08/25/20 Office Visit Chapito Galvez MD [facility] [place] Showing recent visits within past 182 [...] Gutiér[place] 04/22/20 Office Visit [facility] Show[facility] recent visits within past 365 days and meeting all other requirements Future Appointments No visits were found meeting these conditions. Showing future appointments within next 90 days and meeting all other requirements documented in this encounter Plan of Treatment Upcoming Encounters Date Type Department Care Team (Late st Contact Info) Description 09/12/2024 8:00 AM CDT Lab [facility] #2 [facility] [address] [place] [address] [facility] [place] Lab/Ancillary 09/18/2024 9:30 AM CDT Office Visit [facility] Medical Group - Cardiology - [place] #2 [place] [address] Delia Ornelas APRN, TELEHEALTH DIRECTOR #2 [facility], [address] [place] [address] 09/25/2024 8:30 AM CDT Office Visit [facility] Medical Group - Family Medicine - [place] #2 [place] [address] Chapito Galvez MD #2 [facility] [address] [place] [address] documented as of this encounter Visit Diagnoses Not on filedocumented in this encounter Additional Health Concerns Infection Onset Date Last Indicated Resolved Time Respiratory Rule-Out 06/29/2024 06/29/2024 025 9:28 AM CASE WORK AIDE COVID - 19 06/29/2024 06/29/2024 06/29/2024 9:27 AM CASE WORK AIDE COVID - 19 Confirmed 06/29/2024 06/29/2024 025 12:16 AM CASE WORK AIDE Assessment Noted Time PHQ-9 Depression Total Score: 0 01/06/20 21 7:24 AM CDT documented as of this encounter Care Teams Quality Control Engineering Technician Relationship Specialty Start Date End Date Chapito Galvez MD #2 [facility] [address] [place] [address] PCP - General Family Medicine 04/01/15 Sharad Yates MD #[address] [address] Consulting Physician Cardiovascular Disease - Cardiology 02/17/22 04/25/24 Nirali Gruber RN [place] Registered Nurse Cardiology 03/08/22 04/25/24 Osman Gordon MD #[address] [address] Consulting Physician Colon and Rectal Surgery 06/24/23 Delia Ornelas APRN, TELEHEALTH DIRECTOR #2 [facility] [address] [place] [address] Nurse Practitioner Cardiology 07/13/23 Selam Gomez APRN, TELEHEALTH DIRECTOR #2 [place] [address] Nurse Practitioner Cardiology 05/08/24 documented as of this encounter
--- OUTSIDE RECORDS SUMMARY | 2024-08-09 01:12 | XMS_ITS | Encounter Summary ---
Author Organization [facility] Address [address] [place] [address] Phone Care Team Providers Care Cigarette Package Examiner Name Role Phone Chapito Galvez MD Primary Care Provider Sharad Yates MD Unavailable Nirali Parker RN Unavailable Unavaila Osman Zamarripa MD Unavailable Delia Ornelas CDL TEAM TRUCK DRIVER, TECHNOLOGY RESOURCE TEACHER Unavailable [phone] Selam Gomez CDL TEAM TRUCK DRIVER, TECHNOLOGY RESOURCE TEACHER Unavailable Reason for Visit * Reason Comments Medication Refill Encounter Details Date Type Department Care Team (Late st Contact Info) Description 08/17/2023 Refill [facility] Medical Group - Family Medicine [facility] #2 [place] [address] Chapito Galvez MD #[address] [address] Medication Refill Social History Tobacco Use Types [...] Dept 05/09/23 Office Visit Chapito Galvez MD [facility] [place] Showing recent visits within past 182 [...] [facility] [address] [place] [address] [place] Lab/Ancillary 09/18/2024 9:30 AM CDT Office Visit [facility] - Cardiology - [place] #2 [facility] [place] [address] Delia Ornelas APRN, TECHNOLOGY RESOURCE TEACHER #2 [facility] [place] [facility] [address] [place] [address] 09/25/2024 8:30 AM CDT Office Visit [facility] - [facility] #2 [place] [address] Chapito Galvez MD #[address] [address] documented as of this encounter Visit Diagnoses Not on filedocumented in this encounter Additional Health Concerns Infection Onset Date Last Indicated Resolved Time Respiratory Rule-Out 06/29/2024 06/29/2024 025 9:28 AM BULLDOZER PRESS OPERATOR COVID - 19 06/29/2024 06/29/2024 06/29/2024 9:27 AM BULLDOZER PRESS OPERATOR COVID - 19 Confirmed 06/29/2024 06/29/2024 025 12:16 AM BULLDOZER PRESS OPERATOR Assessment Noted Time PHQ-9 Depression Total Score: 0 07/07/19 23 8:00 AM BULLDOZER PRESS OPERATOR documented as of this encounter Care Teams Cigarette Package Examiner Relationship Specialty Start Date End Date Chapito Galvez MD #[address] [address] PCP - General Family Medicine 04/01/15 Sharad Yates MD #[address] [address] Consulting Physician Cardiovascular Disease - Cardiology 02/17/22 04/25/24 Nirali Gruber RN [place] Registered Nurse Cardiology 03/08/22 04/25/24 Osman Gordon MD #[address] [address] Consulting Physician Colon and Rectal Surgery 06/24/23 Delia Ornelas APRN, TECHNOLOGY RESOURCE TEACHER #2 [facility] [address] [place] [address] Nurse Practitioner Cardiology 07/13/23 Selam Gomez APRN, KATE #2 [place] [address] Nurse Practitioner Cardiology 05/08/24 documented as of this encounter
--- OUTSIDE RECORDS SUMMARY | 2024-08-09 01:12 | XMS_ITS | Encounter Summary ---
Author Organization [facility] Address [address] [place] [address] Phone Care Team Providers Care Event Lighting Specialist Name Role Phone Chapito Galvez MD Primary Care Provider Sharad Yates MD Unavailable Nirali Parker RN Unavailable Unavaila Osman Zamarripa MD Unavailable Delia Ornelas WARDROBE MISTRESS, WATER TAXI CAPTAIN Unavailable [phone] Selam Gomez WARDROBE MISTRESS, WATER TAXI CAPTAIN Unavailable Reason for Visit * Reason Comments Medication Refill Encounter Details Date Type Department Care Team (Late st Contact Info) Description 02/04/2023 Refill [facility] Medical Group - Family Medicine [facility] #2 [place] [address] Chapito Galvez MD #[address] [address] Medication Refill Social History Tobacco Use Types [...] [place] 10/20/22 Office Visit Russell Busby MD [facility] [place] Showing recent visits within past 182 [...] Lab [facility] #[address] [address] [facility] Lab/Ancillary 09/18/2024 9:30 AM CDT Office Visit [facility] - Cardiology - [place] #2 [place] [address] Delia Ornelas APRN, WATER TAXI CAPTAIN #2 [facility] [place], [address] [place] [address] 09/25/2024 8:30 AM CDT Office Visit [facility] - Family Medicine [facility] #2 [place] [address] Chapito Galvez MD #[address] [address] documented as of this encounter Visit Diagnoses Not on filedocumented in this encounter Additional Health Concerns Infection Onset Date Last Indicated Resolved Time Respiratory Rule-Out 06/29/2024 06/29/2024 025 9:28 AM VICE PRESIDENT OF INSTRUCTION COVID - 19 06/29/2024 06/29/2024 06/29/2024 9:27 AM VICE PRESIDENT OF INSTRUCTION COVID - 19 Confirmed 06/29/2024 06/29/2024 025 12:16 AM VICE PRESIDENT OF INSTRUCTION Assessment Noted Time PHQ-9 Depression Total Score: 0 07/07/19 23 8:00 AM VICE PRESIDENT OF INSTRUCTION documented as of this encounter Care Teams Event Lighting Specialist Relationship Specialty Start Date End Date Chapito Galvez MD #[address] [address] PCP - General Family Medicine 04/01/15 Sharad Yates MD #[address] [address] Consulting Physician Cardiovascular Disease - Cardiology 02/17/22 04/25/24 Nirali Gruber RN [place] Registered Nurse Cardiology 03/08/22 04/25/24 Osman Gordon MD #2 [facility] [address] [place] [address] Consulting Physician Colon and Rectal Surgery 06/24/23 Delia Ornelas APRN, WATER TAXI CAPTAIN #2 [facility] [address] [place] [address] Nurse Practitioner Cardiology 07/13/23 Selam Gomez APRN, WATER TAXI CAPTAIN #2 [place] [address] Nurse Practitioner Cardiology 05/08/24 documented as of this encounter
--- OUTSIDE RECORDS SUMMARY | 2024-08-09 01:12 | XMS_ITS | Encounter Summary ---
Author Organization [facility] Address [address] [place] [address] Phone Care Team Providers Care Senior Cognos Developer Name Role Phone Chapito Galvez MD Primary Care Provider Sharad Yates MD Unavailable Nirali Parker RN Unavailable Unavaila Osman Zamarripa MD Unavailable Delia Ornelas MOLD PULLER, SOLE LAYER HAND Unavailable [phone] Selam Gomez MOLD PULLER, SOLE LAYER HAND Unavailable Reason for Visit * Reason Comments Medication Refill Encounter Details Date Type Department Care Team (Late st Contact Info) Description 04/19/2022 Refill [facility] Medical Group - Family Medicine [facility] #2 [place] [address] Chapito Galvez MD #[address] [address] Medication Refill Social History Tobacco Use Types [...] Coronavirus/COVID-19? No / Unsure 04/08/2022 10:58 AM FILM LIBRARY CLERK documented as of this encounter Miscellaneous Notes * Telephone Encounter - Mariposa Fu RN - 04/19/2022 10:30 AM FILM LIBRARY CLERK Medication failed the protocol, provider to review [...] Gutiérrez 07/28/21 Office Visit Karen Meredith APRN, SOLE LAYER HAND [facility] [place] 05/11/21 Office Visit Chapito Galvez MD [facility] Showing recent visits within past 365 days and meeting all other requirements Future Appointments No visits were found meeting these conditions. Showing future appointments within next 90 days and meeting all other requirements LIBRARY CLERK documented in this encounter Plan of Treatment Upcoming Encounters Date Type Department Care Team (Late st Contact Info) Description 09/12/2024 8:00 AM CDT Lab [facility] LAB #2 [place] [facility] [address] [place] [address] Lab [place] Lab/Ancillary 09/18/2024 9:30 AM CDT Office Visit [facility] Medical [facility] - Cardiology - [place] #2 [place] [facility] [address] Delia Ornelas APRN, SOLE LAYER HAND #2 [facility] [place] [facility] [address] [place] [address] 09/25/2024 8:30 AM CDT Office Visit [facility] Medical [facility] - Family Medicine - [place] #2 [place] [address] Chapito Galvez MD #[address] [address] documented as of this encounter Visit Diagnoses Not on filedocumented in this encounter Additional Health Concerns Infection Onset Date Last Indicated Resolved Time Respiratory Rule-Out 06/29/2024 06/29/2024 025 9:28 AM FILM LIBRARY CLERK COVID - 19 06/29/2024 06/29/2024 06/29/2024 9:27 AM FILM LIBRARY CLERK COVID - 19 Confirmed 06/29/2024 06/29/2024 025 12:16 AM FILM LIBRARY CLERK Assessment Noted Time PHQ-9 Depression Total Score: 0 07/29/19 22 8:18 AM FILM LIBRARY CLERK documented as of this encounter Care Teams Senior Cognos Developer Relationship Specialty Start Date End Date Chapito Galvez MD #2 [facility] [address] [place] [address] PCP - General Family Medicine 04/01/15 Sharad Yates MD #2 [facility] [address] [place] [address] Consulting Physician Cardiovascular Disease - Cardiology 02/17/22 04/25/24 Nirali Gruber RN [place] Registered Nurse Cardiology 03/08/22 04/25/24 Osman Gordon MD #2 [facility] [address] [place] [address] Consulting Physician Colon and Rectal Surgery 06/24/23 Delia Ornelas APRN, SOLE LAYER HAND #2 [facility] [address] [place] [address] Nurse Practitioner Cardiology 07/13/23 Selam Gomez MOLD PULLER, SOLE LAYER HAND #2 [place] [address] Nurse Practitioner Cardiology 05/08/24 documented as of this encounter
--- OUTSIDE RECORDS SUMMARY | 2024-08-09 01:12 | XMS_ITS | Encounter Summary ---
Author Organization [facility] Address [address] [place] [address] Phone Care Team Providers Care Clinical Laboratory Service Teacher Name Role Phone Chapito Galvez MD Primary Care Provider Sharad Yates MD Unavailable Nirali Parker RN Unavailable Unavaila Osman Zamarripa MD Unavailable Delia Ornelas BLOCKER AND POLISHER GOLD WHEEL, ROUTE SALES ASSOCIATE Unavailable [phone]- [phone] Selam Gomez BLOCKER AND POLISHER GOLD WHEEL, ROUTE SALES ASSOCIATE Unavailable Reason for Visit * Reason Comments Medication Refill Encounter Details Date Type Department Care Team (Late st Contact Info) Description 11/01/2023 Refill [facility] Medical Group - Family Medicine [facility] #[address] [place] [address] Chapito Galvez MD #[address] [address] Medication Refill Social History Tobacco Use Types [...] AM CDT Medication([facility]) [facility] and [facility] Medication Refill Standing Order for [...] Gutiérrez 01/05/23 Office Visit Chapito Galvez MD [facility] [place] Showing recent visits within past 365 [...] Info) Description 09/12/2024 8:00 AM CDT Lab [facility] #2 [facility] [address] [place] [address] Lab [place] Lab/Ancillary 09/18/2024 9:30 AM CDT Office Visit [facility] Medical Group - Cardiology - [place] #2 [place] [address] Delia Ornelas APRN, ROUTE SALES ASSOCIATE #2 [facility], [address] [place] [address] 09/25/2024 8:30 AM CDT Office Visit [facility] Medical Group - Family Medicine - [place] #2 [place] [address] Chapito Galvez MD #[address] [address] documented as of this encounter Visit Diagnoses Not on filedocumented in this encounter Additional Health Concerns Infection Onset Date Last Indicated Resolved Time Respiratory Rule-Out 06/29/2024 06/29/2024 025 9:28 AM SOFTWARE INSTALLER COVID - 19 06/29/2024 06/29/2024 06/29/2024 9:27 AM SOFTWARE INSTALLER COVID - 19 Confirmed 06/29/2024 06/29/2024 025 12:16 AM SOFTWARE INSTALLER Assessment Noted Time PHQ-9 Depression Total Score: 0 09/08/19 24 8:24 AM CDT documented as of this encounter Care Teams Clinical Laboratory Service Teacher Relationship Specialty Start Date End Date Chapito Galvez MD #[address] [address] PCP - General Family Medicine 04/01/15 Sharad Yates MD #[address] [address] Consulting Physician Cardiovascular Disease - Cardiology 02/17/22 04/25/24 Nirali Gruber RN [place] Registered Nurse Cardiology 03/08/22 04/25/24 Osman Gordon MD #[address] [address] Consulting Physician Colon and Rectal Surgery 06/24/23 Delia Ornelas APRN, ROUTE SALES ASSOCIATE #2 [facility] [address] [place] [address] Nurse Practitioner Cardiology 07/13/23 Selam Gomez APRN, ROUTE SALES ASSOCIATE #2 [place] [address] Nurse Practitioner Cardiology 05/08/24 documented as of this encounter
--- OUTSIDE RECORDS SUMMARY | 2024-08-09 01:12 | XMS_ITS | Clinical Summary ---
Author Organization [facility] Address [address] [place] [address] Care Team Providers Care Mill Controller Name Role Phone Chapito Galvez MD Primary Care Provider + [phone] Allergies Active Allergy Reactions Criticality Noted Date Comments Adhesive Blisters,Redness High 09/02/2017 bli Latex, Natural Rubber 11/24/2018 Added based on information entered during case entry, please review and add reactions, type, and severity as needed Morphine Anxiety,Other (See comments) Low 09/30/2015 Monitor Heat all over my body Medications blood [...] diabetes mellitus Take 1 mg by mouth director of early childhood education before breakfast 0 Active aspirin 81 mg [...] to atorva 40mg daily - NPO for [facility] today Assessment & Plan (09/28/2020 9:44 AM CDT): -atypical in nature ECG, trops unremarkable +Stress ECHO yesterday -chest pain again overnight, self limiting -no tele events, CTM -Appreciate Cards recs: added asa 81mg, changed pravastatin to atorva 40mg daily -NPO tonight for [facility] in am DMII (diabetes mellitus, [...] (09/29/2020): Added automatically from request for surgery [id number] Otosclerosis of right ear 04/04/2020 Overview (04/04/2020): Added automatically from request for surgery [id number] Assessment & Plan (05/09/2020 11:53 AM MANAGER WATER WASTEWATER): Doing well. RTC 3 mos with audio. Consider amplification depending on audio result. Otorrhea of left ear 11/21/2018 Assessment & Plan (11/21/2018 2:27 PM CDT): Left ear tube removed. RTC prior to surgery to ensure the TM is healed. Ciprodex one week. Mixed conductive and sensorineural hearing loss, bilateral 06/27/2018 Assessment & Plan (03/30/2019 12:26 PM MANAGER WATER WASTEWATER): His ear fullness is much improved in [...] REPAIR Rotator Cuff Repair - (Added by [employer] Conv) [place] TRURL ELECTROSURG RESCJ PROSTATE BLEED COMPLETE Transurethral Resection Of Prostate (TURP) - (Added by [employer] Conv) REPLACEMENT TOTAL KNEE 05/23/2016 - 05/22/2017 Right Partial knee replacement Medical History Medical History Date Comments Personal history of other di seases of the circulatory system History of hypertension - (A dded by [employer] Conv) Personal history of other me ntal and behavioral disorders History of depression - (Add ed by TW Conv) Hypertension Hypercholesterolemia Diabetes (HCC) Ear problems [place] (hearing loss) Tinnitus [place] (hard of hearing) Type 2 diabetes mellitus (HCC) Family History Medical History Relation Name Comments Prostate cancer Brother Prostate Can cer - (Added by [employer] Conv) Anesthesia problems Neg Hx Relation Name [...] on file Legal Sex Male 12:57 PM MANAGER WATER WASTEWATER Gender Identity Not on file Sexual Orientation [...] on file Medical Devices Implanted Type Area Resource Development Director Device Identifier Shelf Expiration Date Model / Serial / Lot Daig Chris/St Aleks [employer] [id number] Angio-Seal Evolution 6fr .035in Guidewire Bypass Tube Suture - [id number] - [id number] Implanted:Qty: 1 on 09/29/[address] MD at [facility] Collagen Terumo Medical Chris 06/22/2021 [id number] / [id number] / [id number] Medtronic Usa [employer] X [id number] Resolute [place]mar 3mm 2.1-2.7fr 34mm 140cm Rapid Exchange Radiopaque - [id number] - [id number] Implanted:Qty: 1 on 09/29/[address] MD at [facility] Stent Medtronic Inc 07/19/2022 [id number] / [id number] / [id number] [facility] 468-450 Eclipse .6mm 4.5mm Piston Otology Nitinol Fluoroplastic - [id number] Implanted:Qty: 1 on 12/04/2018 by Tr Sharp MD at [facility] Left: Stapes Leena [facility] [id number] 11/18/2023 468-450 / / [id number] Implantech -700-05 Alliedsil 3x2in Nonreinforced Permanent Implantable Thk.005in - [id number] Implanted:Qty: 1 on 12/04/2018 by Tr Sharp MD at [facility] Left: Ear Implantech 04/06/2023-700-0 5 / / [id number] [facility] 473-450 Piston Otology 5mm .5mm Eclipse 360d Incus Wide Flat Ribbon - [id number] Implanted:Qty: 1 on 04/28/2020 by Tr Sharp MD at [facility] Right: Ear Leena Medical [id number] 07/20/2024 473-450 / / [id number] Insurance MEDICARE [facility] Address: [address] [address] [place] [address] [facility] SUPPLEMENT MIKE AR[place]OLD [id number] MEDICARE [facility] SUPPLEMENT [place]KE [place] [id number] Advance Directives For more information, please contact: [phone] * Full Code (Latest Code Status on File) Date Activated Date Inactivated Comments 09/27/2020 1:00 AM 09/30/2020 4:13 PM Care Teams Mill Controller Relationship Specialty Start Date End Date Chapito Galvez MD [address] [place] [address] [facility] - General 08/03/16
--- OUTSIDE RECORDS SUMMARY | 2024-08-09 01:12 | XMS_ITS | Encounter Summary ---
Author Organization [facility] Address [address] [place] [address] Phone Care Team Providers Care Fisher Troll Line Name Role Phone Chapito Galvez MD Primary Care Provider Sharad Yates MD Unavailable Nirali Parker RN Unavailable Unavaila Osman Zamarripa MD Unavailable Delia Ornelas CHEMICAL WASTE MANAGEMENT TECHNICIAN, JACKSCREW MAN Unavailable [phone] Selam Gomez CHEMICAL WASTE MANAGEMENT TECHNICIAN, JACKSCREW MAN Unavailable Reason for Visit * Reason Comments Medication Refill Encounter Details Date Type Department Care Team (Late st Contact Info) Description 05/04/[address] [facility] Medical Group - Family Medicine [facility] #2 [place] [address] Chapito Galvez MD #[address] [address] Medication Refill Social History Tobacco Use Types [...] Coronavirus/COVID-19? No / Unsure 05/03/2022 7:49 AM SUPERVISOR WORD PROCESSING documented as of this encounter Miscellaneous Notes [...] Gutiérrez 07/28/21 Office Visit Karen Meredith APRN, JACKSCREW MAN [facility] [place] 05/11/21 Office Visit Chapito Galvez MD [facility] [place] Showing recent visits within past 365 days and meeting all other requirements Future Appointments Date Type Provider Dept 07/07/22 Appointment Chapito Galvez MD [facility] Showing future appointments within next 90 days and meeting all other requirements RVISOR WORD PROCESSING documented in this encounter Plan of Treatment Upcoming Encounters Date Type Department Care Team (Late st Contact Info) Description 09/12/2024 8:00 AM CDT Lab [facility] #2 [facility] [address] [place] [address] [facility] Lab/Ancillary 09/18/2024 9:30 AM CDT Office Visit [facility] Medical Group - Cardiology - [place] #2 [place] [address] Delia Ornelas APRN, JACKSCREW MAN #2 [facility], [address] [place] [address] 09/25/2024 8:30 AM CDT Office Visit [facility] Medical Group - Family Medicine - [place] #[address] [place] [address] Chapito Galvez MD #2 [facility] [address] [place] [address] documented as of this encounter Visit Diagnoses Not on filedocumented in this encounter Additional Health Concerns Infection Onset Date Last Indicated Resolved Time Respiratory Rule-Out 06/29/2024 06/29/2024 025 9:28 AM SUPERVISOR WORD PROCESSING COVID - 19 06/29/2024 06/29/2024 06/29/2024 9:27 AM SUPERVISOR WORD PROCESSING COVID - 19 Confirmed 06/29/2024 06/29/2024 025 12:16 AM SUPERVISOR WORD PROCESSING Assessment Noted Time PHQ-9 Depression Total Score: 0 07/29/19 22 8:18 AM SUPERVISOR WORD PROCESSING documented as of this encounter Care Teams Fisher Troll Line Relationship Specialty Start Date End Date Chapito Galvez MD #2 [facility] [address] [place] [address] PCP - General Family Medicine 04/01/15 Sharad Yates MD #2 [facility] [address] [place] [address] Consulting Physician Cardiovascular Disease - Cardiology 02/17/22 04/25/24 Nirali Gruber RN [place] Registered Nurse Cardiology 03/08/22 04/25/24 Osman Gordon MD #2 [facility] [address] [place] [address] Consulting Physician Colon and Rectal Surgery 06/24/23 Delia Ornelas APRN, JACKSCREW MAN #2 [facility] [address] [place] [address] Nurse Practitioner Cardiology 07/13/23 Selam Gomez APRN, JACKSCREW MAN #2 [place] [address] Nurse Practitioner Cardiology 05/08/24 documented as of this encounter
--- OUTSIDE RECORDS SUMMARY | 2024-08-09 01:12 | XMS_ITS | Encounter Summary ---
Author Organization [facility] Address [address] [place] [address] Phone Care Team Providers Care Brick Loader Name Role Phone Chapito Galvez MD Primary Care Provider Sharad Yates MD Unavailable Nirali Parker RN Unavailable Unavaila Osman Zamarripa MD Unavailable Delia Ornelas REHABILITATION INSPECTOR, HOT WALKER Unavailable [phone] Selam Gomez REHABILITATION INSPECTOR, HOT WALKER Unavailable Reason for Visit * Reason Comments Medication Refill Encounter Details Date Type Department Care Team (Late st Contact Info) Description 04/30/[address] [facility] Medical Group - Family Medicine [facility] #2 [place] [address] Chapito Galvez MD #[address] [address] Medication Refill Social History Tobacco Use Types [...] COVID-19? No / Unsure 04/22/2020 8:19 AM METAL TANK ERECTOR documented as of this encounter Miscellaneous Notes * Telephone Encounter - Chapito Galvez MD - 04/30/2020 2:03 PM CST Prescription pending signature L TANK ERECTOR * Telephone Encounter - Zayda Langston RN [...] Outpatient Visits 1 week ago Essential hypertension [facility] - Chapito Arrington MD 4 months ago Essential hypertension [facility] Chapito Arrington MD 8 months ago Essential hypertension [facility] Chapito Arrington MD 1 year ago Essential hypertension [facility] Chapito Arrington MD 1 year ago Essential hypertension [facility] Chapito Arrington MD Upcoming Appointments Future Appointments In 3 months Lab, [facility], [facility] In 3 months Lab, [facility], [facility] In 3 months Chapito Galvez MD [facility] ASIF Gutiérrez MANDARIN TEACHER - Recent and Past Visits Recent Visits Date Type Provider Dept 04/22/20 Office Visit Chapito Galvez MD [facility] 12/27/19 Office Visit Chapito Galvez MD [facility] 08/27/19 Telemedicine Chapito Galvez MD [facility] G[facility] 04/04/19 Office Visit Chapito Galvez MD [facility] Showing recent visits within past 460 days with a meds authorizing provider and meeting all other requirements Future Appointments No visits were found meeting these conditions. Showing future appointments within next 90 days with a meds authorizing provider and meeting all other requirements L TANK ERECTOR documented in this encounter Plan of Treatment Upcoming Encounters Date Type Department Care Team (Late st Contact Info) Description 09/12/2024 8:00 AM CDT Lab [facility] #2 [facility] [address] [place] [address] [facility] Lab/Ancillary 09/18/2024 9:30 AM CDT Office Visit [facility] Medical Group - Cardiology - [place] #2 [place] [address] Delia Ornelas APRN, HOT WALKER #2 [facility] [address] [place] [address] 09/25/2024 8:30 AM CDT Office Visit 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 documented in this encounter Additional Health Concerns Infection Onset Date Last Indicated Resolved Time Respiratory Rule-Out 06/29/2024 06/29/2024 025 9:28 AM METAL TANK ERECTOR COVID - 19 06/29/2024 06/29/2024 06/29/2024 9:27 AM METAL TANK ERECTOR COVID - 19 Confirmed 06/29/2024 06/29/2024 025 12:16 AM METAL TANK ERECTOR Assessment Noted Time PHQ-9 Depression Total Score: 0 12/27/19 20 8:00 AM CDT documented as of this encounter Care Teams Brick Loader Relationship Specialty Start Date End Date Chapito Galvez MD #2 [facility] [address] [place] [address] PCP - General Family Medicine 04/01/15 Sharad Yates MD #2 [facility] [address] [place] [address] Consulting Physician Cardiovascular Disease - Cardiology 02/17/22 04/25/24 Nirali Gruber RN [place] Registered Nurse Cardiology 03/08/22 04/25/24 [facility]man Gordon MD [facility] [address] [place] [address] Consulting Physician Colon and Rectal Surgery 06/24/23 Delia Ornelas APRN, HOT WALKER #2 [facility] [address] [place] [address] Nurse Practitioner Cardiology 07/13/23 Selam Gomez APRN, HOT WALKER #2 [place] [address] Nurse Practitioner Cardiology 05/08/24 documented as of this encounter
--- OUTSIDE RECORDS SUMMARY | 2024-08-09 01:12 | XMS_ITS | Encounter Summary ---
Author Organization [facility] Address [address] [place] [address] Phone Care Team Providers Care Knot Saw Operator Name Role Phone Chapito Galvez MD Primary Care Provider [phone] Sharad Yates MD Unavailable Nirali Parker RN Unavailable Unavaila Osman Zamarripa MD Unavailable Delia Ornelas KEYBOARDING TEACHER, KITCHENHAND Unavailable [phone] Selam Gomez KEYBOARDING TEACHER, KITCHENHAND Unavailable Reason for Visit * Reason Comments Medication Refill Encounter Details Date Type Department Care Team (Late st Contact Info) Description 07/27/2023 Refill [facility] Medical Group - Family Medicine [facility] #[address] [place] [address] Chapito Galvez MD #[address] [address] Medication Refill Social History Tobacco Use Types [...] Johanny Lobato RN - 07/27/2023 10:07 AM CONTINUITY READER Medication(s) refilled and signed [facility] Chronic Medication Refill Standing Order for Pediatricand [...] Dept 05/09/23 Office Visit Chapito Galvez MD [facility] 01/05/23 Office Visit Chapito Galvez MD [facility] 10/20/22 Office Visit Russell Busby MD [facility] Showing recent visits within past 365 days and meeting all other requirements Future Appointments Date Type Provider Dept 09/08/23 Appointment Chapito Galvez MD [facility] [place] Showing future appointments within next 90 [...] Value Ref Range Status 05/09/2023 No Final INUITY READER documented in this encounter Plan of Treatment Upcoming Encounters Date Type Department Care Team (Late st Contact Info) Description 09/12/2024 8:00 AM CDT Lab [facility] #2 [facility] [address] [place] [address] [facility] Lab/Ancillary 09/18/2024 9:30 AM CDT Office Visit [facility] - Cardiology - [place] #2 [place] [address] Delia Ornelas APRN, KITCHENHAND #2 [facility], [address] [place] [address] 09/25/2024 8:30 AM CDT Office Visit [facility] Medical [facility] - Family Medicine - [place] #2 [place] [address] Chapito Galvez MD #[address] [address] documented as of this encounter Visit Diagnoses Not on filedocumented in this encounter Additional Health Concerns Infection Onset Date Last Indicated Resolved Time Respiratory Rule-Out 06/29/2024 06/29/2024 025 9:28 AM CONTINUITY READER COVID - 19 06/29/2024 06/29/2024 06/29/2024 9:27 AM CONTINUITY READER COVID - 19 Confirmed 06/29/2024 06/29/2024 025 12:16 AM CONTINUITY READER Assessment Noted Time PHQ-9 Depression Total Score: 0 07/07/19 8:00 AM CONTINUITY READER documented as of this encounter Care Teams Knot Saw Operator Relationship Specialty Start Date End Date Chapito Galvez MD #2 [facility] [address] [place] [address] PCP - General Family Medicine 04/01/15 Sharad Yates MD #2 [facility] [address] [place] [address] Consulting Physician Cardiovascular Disease - Cardiology 02/17/22 04/25/24 Nirali Gruber RN [place] Registered Nurse Cardiology 03/08/22 04/25/24 Osman Gordon MD #2 [facility] [address] [place] [address] Consulting Physician Colon and Rectal Surgery 06/24/23 Delia Ornelas APRN, KITCHENHAND #2 [facility] [address] [place] [address] Nurse Practitioner Cardiology 07/13/23 Selam Gomez APRN, KITCHENHAND #2 [place] [address] Nurse Practitioner Cardiology 05/08/24 documented as of this encounter
--- OUTSIDE RECORDS SUMMARY | 2024-08-09 01:12 | XMS_ITS | Encounter Summary ---
Author Organization [facility] Address [address] [place] [address] Phone Care Team Providers Care Administrative Support Clerk Name Role Phone Chapito Galvez MD Primary Care Provider [phone] Sharad Yates MD Unavailable Nirali Parker RN Unavailable Unavaila Osman Zamarripa MD Unavailable Delia Ornelas ELECTRICAL TECHNICIAN, TEAR DOWN MAN Unavailable [phone] Selam Gomez ELECTRICAL TECHNICIAN, TEAR DOWN MAN Unavailable Reason for Visit * Reason Comments Medication Refill Encounter Details Date Type Department Care Team (Late st Contact Info) Description 07/27/2022 Refill [facility] Medical Group - Family Medicine [facility] #2 [place] [address] Chapito Galvez MD #[address] [address] Medication Refill Social History Tobacco Use Types [...] Coronavirus/COVID-19? No / Unsure 07/07/2022 8:53 AM MOBILE PLANT OPERATORS documented as of this encounter Miscellaneous Notes [...] Dept 07/07/22 Office Visit Chapito [facility] 03/05/22 Office Visit Chapito Galvez MD [facility] Showing recent visits within past 182 days and meeting all other requirements Future Appointments No visits were found meeting these conditions. Showing future appointments within next 90 days and meeting all other requirements Passed - Patient has established therapy with Citalopram for at least 6 months LE PLANT OPERATORS documented in this encounter Plan of Treatment Upcoming Encounters Date Type Department Care Team (Late st Contact Info) Description 09/12/2024 8:00 AM CDT Lab [facility] [address] [place] [address] [place] Lab/Ancillary 09/18/2024 9:30 AM CDT [facility] - Cardiology - [place] #2 [place] [address] Delia Ornelas APRN, TEAR DOWN MAN #2 [facility] [address] [place] [address] 09/25/2024 8:30 AM CDT Office Visit [facility] - Family Medicine - [place] #2 [place] [address] Chapito Galvez MD #[address] [address] documented as of this encounter Visit Diagnoses Not on filedocumented in this encounter Additional Health Concerns Infection Onset Date Last Indicated Resolved Time Respiratory Rule-Out 06/29/2024 06/29/2024 025 9:28 AM MOBILE PLANT OPERATORS COVID - 19 06/29/2024 06/29/2024 06/29/2024 9:27 AM MOBILE PLANT OPERATORS COVID - 19 Confirmed 06/29/2024 06/29/2024 025 12:16 AM MOBILE PLANT OPERATORS Assessment Noted Time PHQ-9 Depression Total Score: 0 07/07/19 23 8:00 AM MOBILE PLANT OPERATORS documented as of this encounter Care Teams Administrative Support Clerk Relationship Specialty Start Date End Date Chapito Galvez MD #[address] [address] PCP - General Family Medicine 04/01/15 Sharad Yates MD #[address] [place] [address] Consulting Physician Cardiovascular Disease - Cardiology 02/17/22 04/25/24 Nirali Gruber, [place] Registered Nurse Cardiology 03/08/22 04/25/24 Osman Gordon MD #[address] [address] Consulting Physician Colon and Rectal Surgery 06/24/23 Delia Ornelas APRN, TEAR DOWN MAN #2 [facility], [address] [address] Nurse Practitioner Cardiology 07/13/23 Selam Gomez APRN, TEAR DOWN MAN #2 [place] [address] Nurse Practitioner Cardiology 05/08/24 documented as of this encounter
--- OUTSIDE RECORDS SUMMARY | 2024-08-09 01:12 | XMS_ITS | Encounter Summary ---
Author Organization [facility] Address [address] [place] [address] Phone Care Team Providers Care Sewing Machine Bobbin Winder Name Role Phone Chapito Galvez MD Primary Care Provider [phone] Sharad Yates MD Unavailable Nirali Parker RN Unavailable Unavaila Osman Zamarripa MD Unavailable Delia Ornelas BISCUITWARE BRUSHER, BRANCH RETAIL EXECUTIVE Unavailable [phone] Selam Gomez BISCUITWARE BRUSHER, BRANCH RETAIL EXECUTIVE Unavailable Reason for Visit * Reason Comments Medication Refill Encounter Details Date Type Department Care Team (Late st Contact Info) Description 10/27/2023 Refill [facility] - Family Medicine [facility] [address] [place] [address] Chapito Galvez MD #[address] [address] Medication Refill Social History Tobacco Use Types [...] Pen-injector [Pharmacy Med Name: OZEMPIC 0.25 OR 0.5MG/[id number] 3ML] 3 mL Sig: INJECT 0.5 MG [...] 09/12/2024 8:00 AM CDT Lab [facility] #2 [facility] [address] [place] [address] [facility] Lab/Ancillary 09/18/2024 9:30 AM CDT Office Visit [facility] - Cardiology - [place] #2 [place] [address] Delia Ornelas APRN, BRANCH RETAIL EXECUTIVE #2 [facility], [address] [place] [address] 09/25/2024 8:30 AM CDT Office Visit [facility] - Family Medicine - [place] #2 [place] [address] Chapito Galvez MD #2 [facility] [address] [place] [address] documented as of this encounter Visit Diagnoses Not on filedocumented in this encounter Additional Health Concerns Infection Onset Date Last Indicated Resolved Time Respiratory Rule-Out 06/29/2024 06/29/2024 025 9:28 AM DIRECTOR ORACLE RETAIL COVID - 19 06/29/2024 06/29/2024 06/29/2024 9:27 AM DIRECTOR ORACLE RETAIL COVID - 19 Confirmed 06/29/2024 06/29/2024 025 12:16 AM DIRECTOR ORACLE RETAIL Assessment Noted Time PHQ-9 Depression Total Score: 0 09/08/19 24 8:24 AM CDT documented as of this encounter Care Teams Sewing Machine Bobbin Winder Relationship Specialty Start Date End Date Chapito Galvez MD #2 [facility] [address] [place] [address] PCP - General Family Medicine 04/01/15 Sharad Yates MD #2 [facility] [address] [place] [address] Consulting Physician Cardiovascular Disease - Cardiology 02/17/22 04/25/24 Nirali Gruber RN [place] Registered Nurse Cardiology 03/08/22 04/25/24 Osman Gordon MD #[address] [address] Consulting Physician Colon and Rectal Surgery 06/24/23 Delia Ornelas APRN, BRANCH RETAIL EXECUTIVE [facility] [address] [address] Nurse Practitioner Cardiology 07/13/23 Selam Gomez APRN, BRANCH RETAIL EXECUTIVE #2 [place] [address] Nurse Practitioner Cardiology 05/08/24 documented as of this encounter
--- OUTSIDE RECORDS SUMMARY | 2024-08-09 01:12 | XMS_ITS | Referral Summary ---
Author Organization [facility] Address [address] [place] [address] Care Team Providers Care Steward/Stewardess Wine Name Role Phone Chapito Galvez MD Primary Care Provider [phone] Allergies Active Allergy Reactions Criticality Noted Date Comments Adhesive Blisters,Redness High 09/02/2017 bli Latex, Natural Rubber 11/24/2018 Added based on information entered during case entry, please review and add reactions, type, and severity as needed Morphine Anxiety,Other (See comments) Low 09/30/2015 [place] Heat all over my body Medications blood [...] diabetes mellitus Take 1 mg by mouth weaving instructor before breakfast 0 Active aspirin 81 mg [...] to atorva 40mg daily - NPO for [facility] today Assessment & Plan (09/28/2020 9:44 AM CDT): -atypical in nature ECG, trops unremarkable +Stress ECHO yesterday -chest pain again overnight, self limiting -no tele events, CTM -Appreciate Cards recs: added asa 81mg, changed pravastatin to atorva 40mg daily -NPO tonight for [facility] in am DMII (diabetes mellitus, [...] (09/29/2020): Added automatically from request for surgery [id number] Otosclerosis of right ear 04/04/2020 Overview (04/04/2020): Added automatically from request for surgery [id number] Assessment & Plan (05/09/2020 11:53 AM BENDING PRESS OPERATOR): Doing well. RTC 3 mos with audio. Consider amplification depending on audio result. Otorrhea of left ear 11/21/2018 Assessment & Plan (11/21/2018 2:27 PM CDT): Left ear tube removed. RTC prior to surgery to ensure the TM is healed. Ciprodex one week. Mixed conductive and sensorineural hearing loss, bilateral 06/27/2018 Assessment & Plan (03/30/2019 12:26 PM BENDING PRESS OPERATOR): His ear fullness is much improved [...] on file Legal Sex Male 12:57 PM BENDING PRESS OPERATOR Gender Identity Not on file Sexual [...] on file Medical Devices Implanted Type Area Home Demonstration Agent Device Identifier Shelf Expiration Date Model / Serial / Lot Daig Chris[employer] [id number] Angio-Seal Evolution 6fr .035in Guidewire Bypass Tube Suture - [id number] - [id number] Implanted:Qty: 1 on 09/29/[address] MD at [facility] Collagen [employer] Chris 06/22/2021 [id number] / [id number] / [id number] Medtronic Usa [employer] X [id number] Resolute Delmar 3mm 2.1-2.7fr 34mm 140cm Rapid Exchange Radiopaque - [id number] - [id number] Implanted:Qty: 1 on 09/29/[address] MD at [facility] Stent Medtronic Inc 07/19/2022 [id number] / [id number] / [id number] [facility] 468-450 Eclipse .6mm 4.5mm Piston Otology Nitinol Fluoroplastic - [id number] Implanted:Qty: 1 on 12/04/2018 by Tr Sharp MD at [facility] Left: Stapes [facility] [id number] 11/18/2023 468-450 / / [id number] Implantech -700-05 Alliedsil 3x2in Nonreinforced Permanent Implantable Thk.005in - [id number] Implanted:Qty: 1 on 12/04/2018 by Tr Sharp MD at [facility] Left: Ear Implantech 04/06/2023-700-0 5 / / [id number] [facility] 473-450 Piston Otology 5mm .5mm Eclipse 360d Incus Wide Flat Ribbon - [id number] Implanted:Qty: 1 on 04/28/2020 by Tr Sharp MD at [facility] Right: [facility] [id number] 07/20/20[address] [facility]-850 / / [id number] Insurance MEDICARE [facility] [place] [id number] MEDICARE [facility] SUPPLEMENT [place] [id number] Advance Directives For more information, please contact: [phone] * Full Code (Latest Code Status on File) Date Activated Date Inactivated Comments 09/27/2020 1:00 AM 09/30/2020 4:13 PM Care Teams Steward/Stewardess Wine Relationship Specialty Start Date End Date Chapito Galvez MD 2 [facility] [address] [address] PCP - General 08/03/16
--- OUTSIDE RECORDS SUMMARY | 2024-08-09 01:12 | XMS_ITS | Clinical Summary ---
Author Organization [facility] Address [address] [address] Phone Care Team Providers Care Grocery Store Associate Name Role Phone Chapito Galvez MD Primary Care Provider [phone] Osman Gordon MD Unavailable Delia Ornelas MATERIAL CONTROL ANALYST, AUDIO VIDEO REPAIRER Unavailable [phone] Selam Gomez MATERIAL CONTROL ANALYST, AUDIO VIDEO REPAIRER Unavailable Allergies Active Allergy Reactions Criticality Noted Date Comments Latex Other (see Comments) 04/01/2015 blisters Morphine Anxiety 09/30/2015 Other Unknown seasonal allergies Adhesive Tape Other (see Comments) 09/02/2017 blister Medications clopidogrel (PLAVIX) 75 MG Tablet TAKE ONE TABLET BY MOUTH EVERY DAY 90 Tablet 1 12/16/2023 Active Blood Glucose Monitoring Suppl Device Diagnosis: Diabetes type 2 Blood testing frequency: 1-2 times a day 1 Each 02/01/2024 Active Lancets Misc Use as directed 100 Lancet . 9 02/01/2024 Active Glucose Blood Strip Diagnosis: Diabetes type 2 Blood testing frequency: 1-2 times a day 100 Strip 3 02/01/2024 Active glimepiride (AMARYL) 1 MG Tablet Take 1 Tablet by mouth every morning. 90 Tablet 3 02/09/2024 Active atorvastatin (LIPITOR) 40 MG Tablet Take 1 Tablet by mouth daily. 90 Tablet 1 02/24/2024 Active pioglitazone (ACTOS) 30 MG Tablet Take 1 Tablet by mouth daily. 90 Tablet 1 04/10/2024 Active citalopram (CeleXA) 10 MG Tablet Take 1 Tablet by mouth daily. 90 Tablet 1 04/13/2024 Active chlorthalidone (HYGROTON) 25 MG Tablet TAKE 1 TABLET BY MOUTH EVERY DAY 90 Tablet 1 04/23/2024 Active losartan (COZAAR) 100 MG Tablet TAKE 1 TABLET BY MOUTH EVERY DAY 90 Tablet 1 04/23/2024 Active amLODIPine (NORVASC) 5 MG Tablet Take 1 Tablet by mouth daily. 90 Tablet 3 05/08/2024 Active Ozempic, 2 MG/DOSE, 8 MG/3ML Solution Pen-injector INJECT 2 MG ONCE WEEKLY 3 mL 4 06/11/2024 Active diclofenac (VOLTAREN) 75 MG Tablet Delayed Response 06/26/2024 Active zolpidem (AMBIEN) 5 MG TabletIndicatio ns:Primary insomnia Take 1 Tablet by mouth nightly as needed for Sleep. 30 Tablet 2 08/06/2024 Active Active Problems Problem Noted Date Diagnosed [...] cancer screening 07/05/2016 Type 2 diabetes mellitus, [facility] long-term current use of insulin 04/01/2015 Essential hypertension 04/01/2015 Hyperlipidemia 04/01/2015 Lipoma of back 04/01/2015 High cholesterol High triglycerides BPH (benign prostatic hyperplasia) HTN (hypertension) ED (erectile dysfunction) Carpal tunnel syndrome Encounters Date Type Department Care Team Description 08/06/2024 Refill [facility] #2 [place] [address] Chapito Galvez MD Medication Refill 07/02/2024 [facility]phone [facility] [address] [place] [address] Chapito Galvez MD Follow-up 06/29/2024 9:00 AM INSTRUMENT TECHNICIAN Office Visit [facility] #2 [place] [address] Monica Stephenson APRN, CNP Acute cough (Primary Dx); COVID-19; Primary hypertension Discharge Disposition: Discharged to home or Selfcare 06/29/2024 Travel 06/28/2024 Nurse Triage [facility] [address] [place] [phone] Chapito Galvez MD Appointment; Cough; Fever; Sinus Problem 06/11/2024 Refill [facility] #2 [place] [address] Chapito Galvez MD Medication Refill 05/22/2024 9:00 AM INSTRUMENT TECHNICIAN Office Visit [facility] #2 [place] [address] Chapito Galvez MD Chronic pain of left knee (Primary Dx); Type 2 diabetes mellitus with stage 1 chronic kidney disease, without long-term current use of insulin (HCC); Essential hypertension; Coronary artery disease involving kootenai heart, unspecified vessel or lesion type, unspecified whether angina present; Prostate cancer screening Discharge Disposition: Discharged to home or Selfcare 05/22/2024 Telephone [facility] #2 [place] [address] Chapito Galvez MD 05/22/2024 Travel 05/18/2024 9:30 AM INSTRUMENT TECHNICIAN Clinical Support [facility] Cardiology [facility] #2 [place] [address] NurseBrock Cardiology Essential hypertension (Primary Dx) Discharge Disposition: Discharged to home or Selfcare 05/18/2024 9:20 AM INSTRUMENT TECHNICIAN Lab [facility] #[address] [address] [facility] Lab/Ancillary Normocytic anemia Discharge Disposition: Discharged to home or Selfcare 05/18/2024 Travel from Last 3 Months Immunizations Immunization Administration [...] Comments Blood Pressure 130/60 06/29/2024 9:03 AM INSTRUMENT TECHNICIAN Pulse 68 06/29/2024 9:03 AM INSTRUMENT TECHNICIAN Temperature 36.4 C (97.5 F) 06/29/2024 9:03 AM INSTRUMENT TECHNICIAN Respiratory Rate 18 06/29/2024 9:03 AM INSTRUMENT TECHNICIAN Oxygen Saturation 97% 06/29/2024 9:03 AM INSTRUMENT TECHNICIAN Inhaled Oxygen Concentration - - Weight 112 kg (247 lb) 06/29/2024 9:03 AM INSTRUMENT TECHNICIAN Height 177.8 cm (5' 10 ) 06/29/2024 9:03 AM INSTRUMENT TECHNICIAN Body Mass Index 35.44 06/29/2024 9:03 AM INSTRUMENT TECHNICIAN Plan of Treatment Upcoming Encounters Date Type Department Care Team (Late st Contact Info) Description 09/12/2024 8:00 AM CDT Lab [facility] #2 [facility] [address] [place] [address] Lab [place] Lab/Ancillary 09/18/2024 9:30 AM CDT Office [facility] - [facility]iology - [place] #2 [place] [address] Delia Ornelas APRN, AUDIO VIDEO REPAIRER #2 [facility], [address] [place] [address] 09/25/2024 8:30 AM CDT Office Visit [facility] - Family Medicine - [place] #2 [place] [address] Chapito Galvez MD #2 [facility] [address] [place] [address] Health Maintenance Due Date Last Done Comments [...] Procedure Name Priority Date/Time Associated Diagnosis Comments XR - LOWER EXTREMITY 07/16/2024 12:00 AM INSTRUMENT TECHNICIAN HM DILATED EYE EXAM 07/09/2024 1 2:00 AM INSTRUMENT TECHNICIAN POC SARS-COV-2 BY MOLECULAR Routine 06/29/2024 9:14 AM INSTRUMENT TECHNICIAN Acute cough POC INFLUENZA A AND B BY MOLECULAR Routine 06/29/2024 9:14 AM INSTRUMENT TECHNICIAN Acute cough CBC WITH AUTO DIFFERENTIAL Today 05/18/2024 8:50 AM INSTRUMENT TECHNICIAN Normocytic anemia COMPLETE BLOOD COUNT (CBC) WITH DIFF Today 05/18/2024 8:50 AM INSTRUMENT TECHNICIAN Normocytic anemia CMP (COMPREHENSIVE METABOLIC PANEL) Routine 04/24/2024 8:11 AM INSTRUMENT TECHNICIAN Type 2 diabetes mellitus treated without insulin (HCC) High cholesterol Essential hypertension HEMOGLOBIN A1C W/ ESTIMATED GLUCOSE Routine 04/24/2024 8:11 AM INSTRUMENT TECHNICIAN Type 2 diabetes mellitus treated without insulin (HCC) High cholesterol Essential hypertension PSA SCREEN Today 09/08/2023 8:59 AM CDT Screening for prostate cancer from Last 3 Months or Most Recently Relevant to Health Maintenance Results * XR - LOWER EXTREMITY (07/16/2024 12:00 AM INSTRUMENT TECHNICIAN) 07/16/2024 us Provider Scan IMG DIAGNOSTIC ORDERABLES Final Result Performing Organization Address City/[facility]/ZIP Co de Phone Number SCAN * HM DILATED EYE EXAM (07/09/2024 12:00 AM INSTRUMENT TECHNICIAN) 07/09/2024 us Provider Scan PROCEDURE/MINOR SURGICAL ORDERAB LES Final Result SCAN * (ABNORMAL) POC SARS-COV-2 BY MOLECULAR (06/29/2024 9:14 AM INSTRUMENT TECHNICIAN) SARSCOV2 Positive(A ) Negative, INVALID PROCEDURE CONTROL Valid 06/29/2024 9:14 AM INSTRUMENT TECHNICIAN August N Seema MARIEE CNP POINT OF CARE TESTING (ROCCO ONEIL) Final Result * POC INFLUENZA A AND B BY MOLECULAR (06/29/2024 9:14 AM INSTRUMENT TECHNICIAN) Pathologist [facility] INFLUENZA A RNA Negative Negative, Invalid INFLUENZA B RNA Negative Negative, Invalid PROCEDURE CONTROL Valid 06/29/2024 9:14 AM INSTRUMENT TECHNICIAN August N Seema MARIEE, KATE POINT OF CARE TESTING (ROCCO ONEIL) Final Result * (ABNORMAL) CBC WITH AUTO DIFFERENTIAL (05/18/2024 8:50 AM INSTRUMENT TECHNICIAN) [facility] WBC 7.00 4.00 - 12.00 10(3)/mcL 05/18/2024 12:16 PM INSTRUMENT TECHNICIAN [facility] RBC 4.01(L) 4.40 - 5.80 10(6)/mcL 05/18/2024 12:16 PM INSTRUMENT TECHNICIAN [facility] HEMOGLOBIN (HGB) 12.8(L) 13.0 - 16.5 g/dL 05/18/2024 12:16 PM INSTRUMENT TECHNICIAN [facility] HEMATOCRIT (HCT) 35.9(L) 38.0 - 50.0 % 05/18/2024 12:16 PM INSTRUMENT TECHNICIAN [facility] MCV 89.5 82.0 - 96.0 fL 05/18/2024 12:16 PM INSTRUMENT TECHNICIAN [facility] MCH 31.9 26.0 - 32.0 pg 05/18/2024 12:16 PM INSTRUMENT TECHNICIAN [facility] MCHC 35.7 31.0 - 36.0 g/dL 05/18/2024 12:16 PM INSTRUMENT TECHNICIAN [facility] PLATELET COUNT 214 140 - 440 10(3)/mcL 05/18/2024 12:16 PM [facility] RDW 13.2 11.8 - 15.5 % 05/18/2024 12:16 PM INSTRUMENT TECHNICIAN [facility] MPV 9.3 8.0 - 12.6 fL 05/18/2024 12:16 PM INSTRUMENT TECHNICIAN [facility] NEUTROPHILS 59.0 40.0 - 68.0 % 05/18/2024 12:16 PM INSTRUMENT TECHNICIAN [facility] LYMPHOCYTES 31.1 19.0 - 49.0 % 05/18/2024 12:16 PM INSTRUMENT TECHNICIAN [facility] MONOCYTES 7.3 3.0 - 13.0 % 05/18/2024 12:16 PM INSTRUMENT TECHNICIAN [facility] EOSINOPHILS 1.9 0.0 - 8.0 % 05/18/2024 12:16 PM INSTRUMENT TECHNICIAN [facility] BASOPHILS 0.7 0.0 - 1.0 % 05/18/2024 12:16 PM [facility] ABSOLUTE NEUTROPHILS 4.13 1.40 - 5.30 10(3)/[facility] 05/18/2024 12:16 PM [facility] ABSOLUTE LYMPHOCYTES 2.18 0.90 - 3.30 10(3)/[facility] 05/18/2024 12:16 PM [facility] ABSOLUTE MONOCYTES 0.51 0.10 - 0.90 10(3)/[facility] 05/18/2024 12:16 PM [facility] ABSOLUTE EOSINOPHIL 0.13 0.00 - 0.50 10(3)/[facility] 05/18/2024 12:16 PM [facility] ABSOLUTE BASOPHILS 0.05 0.00 - 0.10 10(3)/[facility] 05/18/2024 12:16 PM [facility] NRBC PER 100 WBC 0 05/18/20 12:16 PM [facility] Blood Venipuncture / Unknown 05/18/2024 8:50 AM INSTRUMENT TECHNICIAN 05/18/2024 8:50 AM INSTRUMENT TECHNICIAN us Chapito Galvez MD HEMATOLOGY ORDERABLES Final R esult [facility] #1 [place] [address] * HEMOGLOBIN A1C W/ ESTIMATED GLUCOSE (04/24/2024 8:11 AM INSTRUMENT TECHNICIAN) HGB-A1C 5.9 4.0 - 6.0 % 04/24/2024 1:12 PM INSTRUMENT TECHNICIAN [facility] Est Average Glucose 122.6 mg/dL 04/24/2024 1:12 PM [facility] Blood Venipuncture / Unknown 04/24/2024 8:11 AM INSTRUMENT TECHNICIAN 04/24/2024 8:11 AM INSTRUMENT TECHNICIAN Narrative [facility] - 04/24/2024 1:12 PM INSTRUMENT TECHNICIAN HEMOGLOBIN A1C: DIABETIC PATIENTS: WELL-CONTROLLED: 6.2 - 7.0 INTERMEDIATE WELL-CONTROLLED: 7.0 - 9.0 POORLY-CONTROLLED: >9.0 Chapito Galvez MD CHEMISTRY ORDERABLES Final Re sult [facility] #1 [place] [address] * (ABNORMAL) CMP (COMPREHENSIVE METABOLIC PANEL) (04/24/2024 8:11 AM INSTRUMENT TECHNICIAN) Pathologist [facility] SODIUM 140 136 - 145 mmol/L 04/24/2024 12:58 PM [facility] POTASSIUM 4.1 3.5 - 5.1 mmol/L 04/24/2024 12:58 PM [facility] CHLORIDE 104 98 - 107 mmol/L 04/24/2024 12:58 PM [facility] CO2, VENOUS 26 22 - 30 mmol/L 04/24/2024 12:58 PM [facility] ANION GAP 14.1 <18.0 mmol/L 04/24/2024 12:58 PM [facility] GLUCOSE 139(H) 70 - 99 mg/dL 04/24/2024 12:58 PM [facility] BUN 30(H) 8 - 26 mg/dL 04/24/2024 12:58 PM [facility] CREATININE, BLOOD 1.37(H) 0.70 - 1.30 mg/dL 04/24/2024 12:58 PM [facility] BUN/CREATININE RATIO 22(H) 12 - 20 ratio 04/24/2024 12:58 PM [facility] TOTAL PROTEIN 7.2 6.3 - 8.2 g/dL 04/24/2024 12:58 PM [facility] ALBUMIN 4.2 3.5 - 5.0 g/dL 04/24/2024 12:58 PM [facility] A/G RATIO 1.4 1.0 - 2.2 04/24/2024 12:58 PM [facility] CALCIUM 9.3 8.7 - 10.5 mg/dL 04/24/2024 12:58 PM [facility] T BILI 0.5 0.2 - 1.2 mg/dL 04/24/2024 12:58 PM [facility] SGOT (AST) 13 5 - 34 U/L 04/24/2024 12:58 PM [facility] SGPT (ALT) 15 0 - 55 U/L 04/24/2024 12:58 PM [facility] ALKALINE PHOSPHATASE 65 40 - 150 U/L 04/24/2024 12:58 PM [facility] IS THE PATIENT REQUIRED TO BE FASTING? No 04/24/2024 12:58 PM [facility] GFR, ESTIMATED 54(L) >=60 04/24/2024 12:58 PM [facility] Comment: Creatinine Clearance is the preferred criteria for selecting drug dose adjustments in renally impaired patients. The GFR is provided as additional pertinent clinical information. GFR is reported in mL/min/1.73 sq m. Calculation based on the Chronic Kidney Disease Epidemiology Collaboration (CKD- EPI) equation refit without adjustment for race. GFR, EST. >60 >=60 024 12:58 PM [facility] GFR, EST. NONAFRICAN 51(L) >=60 04/24/2024 12:58 PM [facility] Blood Venipuncture / Unknown 04/24/2024 8:11 AM INSTRUMENT TECHNICIAN 04/24/2024 8:11 AM INSTRUMENT TECHNICIAN Chapito Galvez MD CHEMISTRY ORDERABLES Final Re sult Performing Organization Address City/[facility] Co de Phone Number [facility] #1 [place] [address] * (ABNORMAL) PSA SCREEN (09/08/2023 8:59 AM CDT) PSA SCREEN, TOTAL 5.11(H) <4.00 ng/mL 09/08/2023 1:04 PM CDT [facility] Blood Venipuncture / Unknown 09/08/2023 8:59 AM CDT 09/08/2023 8:59 AM CDT Narrative [facility] - 09/08/2023 1:04 PM CDT The Monitoring DivisionNITY Total PSA assay is a Chemiluminescent Microparticle Immunoassay (CMIA) for the quantitative determination of total PSA (both free PSA and PSA complexed to [id number]) in human serum. Total PSA values obtained with different assay methods, including Rojas PSA assays, cannot be used interchangeably. 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 Advance Care Planning Discussion 05/10/2024 2:47 PM CARDIAC CLEARANCE Care Teams Grocery Store Associate Relationship Specialty Start Date End Date Chapito Galvez MD #2 [facility] [address] [place] [address] PCP - General Family Medicine 04/01/15 Osman Gordon MD #2 [facility] [address] [place] [address] Consulting Physician Colon and Rectal Surgery 06/24/23 Delia Ornelas APRN, AUDIO VIDEO REPAIRER #2 [facility] [address] [place] [address] Nurse Practitioner Cardiology 07/13/23 Selam Gomez APRN, AUDIO VIDEO REPAIRER #2 [place] [phone] Nurse Practitioner Cardiology 05/08/24
--- OUTSIDE RECORDS SUMMARY | 2024-08-09 01:12 | XMS_ITS | Encounter Summary ---
Author Organization [facility] Address [address] [place] [address] Phone Care Team Providers Care Ways Operator Name Role Phone Chapito Galvez MD Primary Care Provider Sharad Yates MD Unavailable Nirali Parker RN Unavailable Unavaila Osman Zamarripa MD Unavailable Delia Ornelas LEAD SHAREPOINT DEVELOPER, TEXTILE BROKER Unavailable [phone]- [phone] Selam Gomez LEAD SHAREPOINT DEVELOPER, TEXTILE BROKER Unavailable Reason for Visit * Reason Comments Medication Refill Encounter Details Date Type Department Care Team (Late st Contact Info) Description 07/07/2022 Refill [facility] - Family Medicine [facility] #2 [place] [address] Chapito Galvez MD #[address] [address] Medication Refill Social History Tobacco Use Types [...] Coronavirus/COVID-19? No / Unsure 07/07/2022 8:53 AM RESOURCE DEVELOPMENT MANAGER documented as of this encounter Functional Status * Question Answer Date of Assessment Author Little interest or pleasure in doing things Not at all 07/07/2022 8:00 AM RESOURCE DEVELOPMENT MANAGER Silva Bell RMA Feeling down, depressed, or hopeless Not at all 07/07/2022 8:00 AM RESOURCE DEVELOPMENT MANAGER Silva Bell RMA * Over the past 2 weeks, how often have you been bothered by any of the following problems? Question Answer Date of Assessment Author Patient Health Questionnaire -2 Score 0 07/07/2022 8:00 AM RESOURCE DEVELOPMENT MANAGER Silva Bell RMA documented as of this encounter Miscellaneous Notes * Telephone Encounter - Mariposa Fu RN - 07/07/2022 10:16 AM RESOURCE DEVELOPMENT MANAGER Medication warning. Per nursing clinical judgement, provider [...] Gutiérrez 07/28/21 Office Visit Karen Meredith APRN, TEXTILE BROKER [facility] visits within past 365 days and meeting all other requirements Today's Visits Date Type Provider Dept 07/07/22 Office Visit Chapito Galvez MD [facility] Showing today's visits and meeting all [...] Range Status 12/25/2021 97.5 <130 mg/dL Final URCE DEVELOPMENT MANAGER documented in this encounter Plan of Treatment Upcoming Encounters Date Type Department Care Team (Late st Contact Info) Description 09/12/2024 8:00 AM CDT Lab [facility] #2 [facility] [address] [place] [address] [facility] Lab/Ancillary 09/18/2024 9:30 AM CDT Office Visit [facility] - Cardiology - [place] #2 [place] [address] Delia Ornelas APRN, TEXTILE BROKER #2 [facility], [address] [place] [address] 09/25/2024 8:30 AM CDT [facility] Family Medicine - [place] #2 [place] [address] Chapito Galvez MD #2 [facility] [address] [place] [address] documented as of this encounter Visit Diagnoses Not on filedocumented in this encounter Additional Health Concerns Infection Onset Date Last Indicated Resolved Time Respiratory Rule-Out 06/29/2024 06/29/2024 025 9:28 AM RESOURCE DEVELOPMENT MANAGER COVID - 19 06/29/2024 06/29/2024 06/29/2024 9:27 AM RESOURCE DEVELOPMENT MANAGER COVID - 19 Confirmed 06/29/2024 06/29/2024 025 12:16 AM RESOURCE DEVELOPMENT MANAGER Assessment Noted Time PHQ-9 Depression Total Score: 0 07/07/19 23 8:00 AM RESOURCE DEVELOPMENT MANAGER documented as of this encounter Care Teams Ways Operator Relationship Specialty Start Date End Date Chapito Galvez MD #2 [facility] [address] [place] [address] PCP - General Family Medicine 04/01/15 Sharad Yates MD #2 [facility] [address] [place] [address] Consulting Physician Cardiovascular Disease - Cardiology 02/17/22 04/25/24 Nirali Gruber RN [place] Registered Nurse Cardiology 03/08/22 04/25/24 Osman Gordon MD [facility] [address] [place] [address] Consulting Physician Colon and Rectal Surgery 06/24/23 Delia Ornelas APRN, TEXTILE BROKER #2 [facility] [address] [place] [address] Nurse Practitioner Cardiology 07/13/23 Selam Gomez APRN, TEXTILE BROKER #2 [place] [address] Nurse Practitioner Cardiology 05/08/24 documented as of this encounter
--- OUTSIDE RECORDS SUMMARY | 2024-08-09 01:12 | XMS_ITS | Encounter Summary ---
Author Organization [facility] Address [address] [place] [address] Phone Care Team Providers Care Academic Support Center Director Name Role Phone Chapito Galvez MD Primary Care Provider Sharad Yates MD Unavailable Nirali Parker RN Unavailable Unavaila Osman Zamarripa MD Unavailable Delia Ornelas RELIABILITY TECHNICIANS, MACHINE CAPTAIN Unavailable [phone]- [phone] Selam Gomez RELIABILITY TECHNICIANS, MACHINE CAPTAIN Unavailable Reason for Visit * Reason Comments Medication Refill Encounter Details Date Type Department Care Team (Late st Contact Info) Description 12/22/2020 Refill [facility] - Family Medicine [facility] #2 [place] [address] Chapito Galvez MD #[address] [address] Medication Refill Social History Tobacco Use Types [...] Lab [facility] [address] [place] [address] [facility] Lab/Ancillary 09/18/2024 9:30 AM CDT Office [facility] - [place] #2 [place] [address] Delia Ornelas APRN, MACHINE CAPTAIN #2 [facility], [address] [place] [address] 09/25/2024 8:30 AM CDT Office Visit [facility] Family [facility] #2 [place] [address] Chapito Galvez MD #[address] [address] documented as of this encounter Visit Diagnoses Diagnosis Primary insomnia Persistent disorder of initiating or maintaining sleep documented in this encounter Additional Health Concerns Infection Onset Date Last Indicated Resolved Time Respiratory Rule-Out 06/29/2024 06/29/2024 025 9:28 AM SENIOR OCCUPATIONAL THERAPIST COVID - 19 06/29/2024 06/29/2024 06/29/2024 9:27 AM SENIOR OCCUPATIONAL THERAPIST COVID - 19 Confirmed 06/29/2024 06/29/2024 025 12:16 AM SENIOR OCCUPATIONAL THERAPIST Assessment Noted Time PHQ-9 Depression Total Score: 0 08/26/19 21 8:52 AM CDT documented as of this encounter Care Teams Academic Support Center Director Relationship Specialty Start Date End Date Chapito Galvez MD #[address] [address] PCP - General Family Medicine 04/01/15 Sharad Yates MD #[address] [address] Consulting Physician Cardiovascular Disease - Cardiology 02/17/22 04/25/24 Nirali Gruber RN [place] Registered Nurse Cardiology 03/08/22 04/25/24 Osman Gordon MD #[address] [address] Consulting Physician Colon and Rectal Surgery 06/24/23 Delia Ornelas APRN, MACHINE CAPTAIN #2 [facility] [place] [address] [address] Nurse Practitioner Cardiology 07/13/23 Selam Gomez APRN, MACHINE CAPTAIN #2 [place] [address] Nurse Practitioner Cardiology 05/08/24 documented as of this encounter
--- OUTSIDE RECORDS SUMMARY | 2024-08-09 01:12 | XMS_ITS | Encounter Summary ---
Author Organization [facility] Address [address] [place] [address] Phone Care Team Providers Care Mainframe Systems Engineer Name Role Phone Chapito Galvez MD Primary Care Provider [phone] Sharad Yates MD Unavailable Nirali Parker RN Unavailable Unavaila Osman Zamarripa MD Unavailable Delia Ornelas OFFICIAL COURT REPORTER, GEOSCIENTIST Unavailable [phone] REPORTER, GEOSCIENTIST Unavailable Reason for Visit * Reason Onset Date Comments New Med Request 08/08/2023 Encounter Details Date Type Department Care Team (Late st Contact Info) Description 08/08/2023 Telephone [facility] Group - Family [facility] #2 [place] [address] Chapito Galvez MD #[address] [address] New Med Request Social History Tobacco Use [...] Lab [facility] GROUP LAB #2 [facility] [address] [place] [address] [facility] Lab/Ancillary 09/18/2024 9:30 AM CDT Office Visit [facility] Medical Group - Cardiology - [place] #2 [place] [address] Delia Ornelas APRN, GEOSCIENTIST #[address] [facility], [address] [place] [address] 09/25/2024 8:30 AM CDT Office Visit [facility] - Family Medicine - [place] #2 [place] [address] Chapito Galvez MD #2 [facility] [address] [place] [address] documented as of this encounter Visit Diagnoses Not on filedocumented in this encounter Additional Health Concerns Infection Onset Date Last Indicated Resolved Time Respiratory Rule-Out 06/29/2024 06/29/2024 025 9:28 AM CAMERA MECHANIC COVID - 19 06/29/2024 06/29/2024 06/29/2024 9:27 AM CAMERA MECHANIC COVID - 19 Confirmed 06/29/2024 06/29/2024 025 12:16 AM CAMERA MECHANIC Assessment Noted Time PHQ-9 Depression Total Score: 0 07/07/19 23 8:00 AM CAMERA MECHANIC documented as of this encounter Care Teams Mainframe Systems Engineer Relationship Specialty Start Date End Date Chapito Galvez MD #2 [facility] [address] [place] [address] PCP - General Family Medicine 04/01/15 Sharad Yates MD #[address] [address] Consulting Physician Cardiovascular Disease - Cardiology 02/17/22 04/25/24 Nirali Gruber RN [place] Registered Nurse Cardiology 03/08/22 04/25/24 Osman Gordon MD #[address] [address] Consulting Physician Colon and Rectal Surgery 06/24/23 Delia Ornelas APRN, GEOSCIENTIST #2 [facility] [address] [address] Nurse Practitioner Cardiology 07/13/23 Selam Gomez APRN, GEOSCIENTIST #2 [place] [address] Nurse Practitioner Cardiology 05/08/24 documented as of this encounter
--- OUTSIDE RECORDS SUMMARY | 2024-08-09 01:12 | XMS_ITS | Encounter Summary ---
Author Organization [facility] Address [address] [place] [address] Phone Care Team Providers Care Washery Engineer Name Role Phone Chapito Galvez MD Primary Care Provider Sharad Yates MD Unavailable Nirali Parker RN Unavailable Unavaila Osman Zamarripa MD Unavailable Delia Ornelas PRINTING TABLE HAND, NURSE QUALITY Unavailable [phone] Selam Gomez PRINTING TABLE HAND, NURSE QUALITY Unavailable Reason for Visit * Reason Comments Medication Refill Encounter Details Date Type Department Care Team (Late st Contact Info) Description 09/17/[address] [facility] - Family Medicine [facility] #2 [place] [address] Chapito Galvez MD #[address] [address] Medication Refill Social History Tobacco Use Types [...] months ago Dysfunction of left eustachian tube [facility] [place] [facility] FAMILY MEDICINE Martha Crum PAC 1 year ago High cholesterol [facility] Chapito Galvez MD 1 year ago Prostate cancer screening [facility] [place] [facility] Chapito Galvez MD Upcoming Appointments Future Appointments In 3 months Lab, Sapg [facility] [place] [facility], [facility] In 3 months Chapito Galvez MD [facility] [place] [facility]IAN [facility], [facility] documented in this encounter Plan of Treatment Upcoming Encounters Date Type Department Care Team (Late st Contact Info) Description 09/12/2024 8:00 AM CDT Lab [facility] [place] [facility] #[address] [address] [facility] Lab/Ancillary 09/18/2024 9:30 AM CDT Office Visit [facility] - Cardiology - [place] #2 [place] [address] Delia Ornelas APRN, NURSE QUALITY #2 [facility] [place] [address] [place] [address] 09/25/2024 8:30 AM CDT Office Visit [facility] Family Medicine [facility] #[address] [place] [address] Chapito Galvez MD #[address] [address] documented as of this encounter Visit Diagnoses Not on filedocumented in this encounter Additional Health Concerns Infection Onset Date Last Indicated Resolved Time Respiratory Rule-Out 06/29/2024 06/29/2024 025 9:28 AM ERP DEVELOPER COVID - 19 06/29/2024 06/29/2024 06/29/2024 9:27 AM ERP DEVELOPER COVID - 19 Confirmed 06/29/2024 06/29/2024 025 12:16 AM ERP DEVELOPER Assessment Noted Time PHQ-9 Depression Total Score: 0 04/04/20 19 8:00 AM ERP DEVELOPER documented as of this encounter Care Teams Washery Engineer Relationship Specialty Start Date End Date Chapito Galvez MD #[address] [address] PCP - General Family Medicine 04/01/15 Sharad Yates MD #[address] [address] Consulting Physician Cardiovascular Disease - Cardiology 02/17/22 04/25/24 Nirali Gruber, RN [place] Registered Nurse Cardiology 03/08/22 04/25/24 Osman Gordon MD #[address] [address] Consulting Physician Colon and Rectal Surgery 06/24/23 Delia Ornelas APRN, NURSE QUALITY #[address] [address] Nurse Practitioner Cardiology 07/13/23 Selam Gomez APRN, NURSE QUALITY #2 [place] [address] Nurse Practitioner Cardiology 05/08/24 documented as of this encounter
--- OUTSIDE RECORDS SUMMARY | 2024-08-09 01:12 | XMS_ITS | Encounter Summary ---
Author Organization [facility] Address [address] [place] [address] Phone Care Team Providers Care Machine Tack Puller Name Role Phone Chapito Galvez MD Primary Care Provider Sharad Yates MD Unavailable Nirali Parker RN Unavailable Unavaila Osman Zamarripa MD Unavailable Delia Ornelas FUR FINISHER SEAMSTRESS, LADDER OPERATOR Unavailable [phone] Selam Gomez FUR FINISHER SEAMSTRESS, LADDER OPERATOR Unavailable Reason for Visit * Reason Comments Medication Refill Encounter Details Date Type Department Care Team (Late st Contact Info) Description 10/21/[address] [facility] Group - Family Medicine [facility] #2 [place] [address] Chapito Galvez MD #[address] [address] Medication Refill Social History Tobacco Use Types [...] 2 weeks ago Coronary artery disease involving siletz tribe heart, unspecified vessel or lesion type, unspecified whether angina present [facility] - Chapito Arrington MD 1 month ago Primary insomnia [facility] Chapito Lopez MD 6 months ago Essential hypertension [facility] Chapito Lopez MD 10 months ago Essential hypertension [facility] Chapito Lopez MD 1 year ago Essential hypertension [facility] Chapito Lopez MD Upcoming Appointments Future Appointments In 2 months Lab, [facility] PHYSICIAN GROUP LAB, [facility] In 2 months Chapito Galvez MD [facility] ASIF Cooley PHOTOENGRAVING APPRENTICE - Recent and Past Visits Recent Visits Date Type Provider Dept 10/06/20 Office Visit Chapito Galvez MD [facility] 08/25/20 Office Visit Chapito Galvez MD [facility] 04/22/20 Office Visit Chapito Galvez MD [facility] 12/27/19 Office Visit Chapito Galvez MD [facility] 08/27/19 Telemedicine Chapito Galvez MD [facility] Showing recent visits within past [...] Info) Description 09/12/2024 8:00 AM CDT Lab [facility] GROUP LAB #2 [facility] [address] [place] [address] [facility] Lab/Ancillary 09/18/2024 9:30 AM CDT Office Visit [facility] Medical Group - Cardiology - [place] #2 [place] [address] Delia Ornelas APRN, LADDER OPERATOR #2 [facility], [address] [place] [address] 09/25/2024 8:30 AM CDT Office Visit [facility] Medical Group - Family Medicine - [place] #2 [place] [address] Chapito Galvez MD #2 [facility] [address] [place] [address] documented as of this encounter Visit Diagnoses Diagnosis Primary insomnia Persistent disorder of initiating or maintaining sleep documented in this encounter Additional Health Concerns Infection Onset Date Last Indicated Resolved Time Respiratory Rule-Out 06/29/2024 06/29/2024 025 9:28 AM LEGAL NURSE CONSULTANT COVID - 19 06/29/2024 06/29/2024 06/29/2024 9:27 AM LEGAL NURSE CONSULTANT COVID - 19 Confirmed 06/29/2024 06/29/2024 025 12:16 AM LEGAL NURSE CONSULTANT Assessment Noted Time PHQ-9 Depression Total Score: 0 08/26/19 21 8:52 AM CDT documented as of this encounter Care Teams Machine Tack Puller Relationship Specialty Start Date End Date Chapito Galvez MD #2 [facility] [address] [place] [address] PCP - General Family Medicine 04/01/15 Sharad Yates MD #[address] [address] Consulting Physician Cardiovascular Disease - Cardiology 02/17/22 04/25/24 Nirali Gruber RN [place] Registered Nurse Cardiology 03/08/22 04/25/24 Osman Gordon MD #[address] [address] Consulting Physician Colon and Rectal Surgery 06/24/23 Delia Ornelas APRN, LADDER OPERATOR #2 [facility] [address] [place] [address] Nurse Practitioner Cardiology 07/13/23 Selam Gomez APRN, LADDER OPERATOR #2 [place] [address] Nurse Practitioner Cardiology 05/08/24 documented as of this encounter
--- OUTSIDE RECORDS SUMMARY | 2024-08-09 01:12 | XMS_ITS | Encounter Summary ---
Author Organization [facility] Address [address] [place] [address] Phone Care Team Providers Care In Service Education Teacher Name Role Phone Chapito Galvez MD Primary Care Provider Sharad Yates MD Unavailable Nirali Parker RN Unavailable Unavaila Osman Zamarripa MD Unavailable Delia Ornelas RADIOLOGY RESIDENT, FLIGHT ATTENDANT INFLIGHT SERVICES Unavailable [phone] Selam Gomez RADIOLOGY RESIDENT, FLIGHT ATTENDANT INFLIGHT SERVICES Unavailable Reason for Visit * Reason Comments Medication Refill Encounter Details Date Type Department Care Team (Late st Contact Info) Description 11/01/2023 Refill [facility] Medical Group - Family Medicine [facility] #2 [place] [address] Chapito Galvez MD #[address] [address] Medication Refill Social History Tobacco Use Types [...] Info) Description 09/12/2024 8:00 AM CDT Lab [facility] LAB #2 [facility] [address] [place] [address] [facility] Lab/Ancillary 09/18/2024 9:30 AM CDT [facility] - Cardiology - [place] #2 [place] [address] Delia Ornelas APRN, FLIGHT ATTENDANT INFLIGHT SERVICES #2 [facility], [address] [place] [address] 09/25/2024 8:30 AM CDT Office Visit [facility] Medical Group - Family Medicine - [place] #2 [place] [address] Chapito Galvez MD #2 [facility] [address] [place] [address] documented as of this encounter Visit Diagnoses Not on filedocumented in this encounter Additional Health Concerns Infection Onset Date Last Indicated Resolved Time Respiratory Rule-Out 06/29/2024 06/29/2024 025 9:28 AM SITE SURVEYOR COVID - 19 06/29/2024 06/29/2024 06/29/2024 9:27 AM SITE SURVEYOR COVID - 19 Confirmed 06/29/2024 06/29/2024 025 12:16 AM SITE SURVEYOR Assessment Noted Time PHQ-9 Depression Total Score: 0 09/08/19 24 8:24 AM CDT documented as of this encounter Care Teams In Service Education Teacher Relationship Specialty Start Date End Date Chapito Galvez MD #[address] [facility] [place] [facility] [address] [place] [address] PCP - General Family Medicine 04/01/15 Sharad Yates MD #2 [facility] [address] [place] [address] Consulting Physician Cardiovascular Disease - Cardiology 02/17/22 04/25/24 Nriali Gruber RN [place] Registered Nurse Cardiology 03/08/22 04/25/24 Osman Gordon MD #2 [facility] [address] [place] [address] Consulting Physician Colon and Rectal Surgery 06/24/23 Delia Ornelas APRN, FLIGHT ATTENDANT INFLIGHT SERVICES #2 [facility] [address] [place] [address] Nurse Practitioner Cardiology 07/13/23 Selam Gomez APRN, FLIGHT ATTENDANT INFLIGHT SERVICES #2 [place] [address] Nurse Practitioner Cardiology 05/08/24 documented as of this encounter
--- OUTSIDE RECORDS SUMMARY | 2024-08-09 01:12 | XMS_ITS | Encounter Summary ---
Author Organization [facility] Address [address] [place] [address] Phone Care Team Providers Care Manager Of Compensation Name Role Phone Chapito Galvez MD Primary Care Provider Sharad Yates MD Unavailable Nirali Parker RN Unavailable Unavaila Osman Zamarripa MD Unavailable Delia Ornelas SUPERVISOR WET ROOM, RESERVOIR ENGINEER Unavailable [phone] Selam Gomez SUPERVISOR WET ROOM, RESERVOIR ENGINEER Unavailable Reason for Visit * Reason Comments Medication Refill Encounter Details Date Type Department Care Team (Late st Contact Info) Description 01/13/[address] [facility] Medical Group - Family Medicine [facility] #2 [place] [address] Chapito Galvez MD #[address] [address] Medication Refill Social History Tobacco Use Types [...] [place] 08/25/20 Office Visit Chapito Galvez MD [facility] Showing recent visits [...] Info) Description 09/12/2024 8:00 AM CDT Lab [facility]2 [facility] [address] [place] [address] Lab [place] Lab/Ancillary 09/18/2024 9:30 AM CDT Office Visit [facility] - Cardiology - [place] #2 [place] [address] Delia Ornelas APRN, RESERVOIR ENGINEER #2 [facility], [address] [place] [address] 09/25/2024 8:30 AM CDT Office Visit [facility] Medical Group - Family Medicine - [place] #2 [place] [address] Chapito Galvez MD #[address] [address] documented as of this encounter Visit Diagnoses Not on filedocumented in this encounter Additional Health Concerns Infection Onset Date Last Indicated Resolved Time Respiratory Rule-Out 06/29/2024 06/29/2024 025 9:28 AM TRUST CLERK COVID - 19 06/29/2024 06/29/2024 06/29/2024 9:27 AM TRUST CLERK COVID - 19 Confirmed 06/29/2024 06/29/2024 025 12:16 AM TRUST CLERK Assessment Noted Time PHQ-9 Depression Total Score: 0 01/06/20 21 7:24 AM CDT documented as of this encounter Care Teams Manager Of Compensation Relationship Specialty Start Date End Date Chapito Galvez MD #[address] [address] PCP - General Family Medicine 04/01/15 Sharad Yates MD #[address] [address] Consulting Physician Cardiovascular Disease - Cardiology 02/17/22 04/25/24 Nirali Gruber, RN [place] Registered Nurse Cardiology 03/08/22 04/25/24 Osman Gordon MD #[address] [facility] [address] [place] [address] Consulting Physician Colon and Rectal Surgery 06/24/23 Delia Ornelas APRN, RESERVOIR ENGINEER #2 [facility] [address] [place] [address] Nurse Practitioner Cardiology 07/13/23 Selam Gomez APRN, RESERVOIR ENGINEER #2 [place] [address] Nurse Practitioner Cardiology 05/08/24 documented as of this encounter
[2024-08-09 07:16] LABS: Glucose Point of Care 121 mg/dl (65-105)
--- NOTE | 2024-08-09 07:37 | WPDANESEPPF ---
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 Patient Data Age: 74 Gender: M Height: 1.78 m Weight: 111.1 kg Last Vital Signs Temp 36.7 C 07/16/24 11:18 Pulse 68 07/16/24 11:18 Resp 18 07/16/24 11:18 BP 143/76 H 07/16/24 11:18 Pulse Ox 97 07/16/24 11:18 O2 Del Method Room Air 07/16/24 11:18 Allergies Allergy/AdvReac Type Severity Reaction Status Date / Time adhesive tape Allergy Intermediate BLISTERING Verified 07/16/24 10:25 morphine Allergy Intermediate NAUSEA AND Verified 07/16/24 10:25 VOMITING, ITCHING latex Allergy Mild Blister Verified 07/16/24 10:25 Home Medications ?Medication ?Instructions ?Recorded ?Confirmed ?Type aspirin 81 mg tablet,delayed 81 mg PO DAILY 10/13/21 07/16/24 History release (Adult Low Dose Aspirin) atorvastatin 40 mg tablet 40 mg PO HS 10/13/21 07/16/24 History blood-glucose meter (True Metrix 10/13/21 07/16/24 History Air Glucose Meter kit) chlorthalidone 25 mg tablet 25 mg PO DAILY 10/13/21 07/16/24 History citalopram 10 mg tablet 10 mg PO HS 10/13/21 07/16/24 History clopidogrel 75 mg tablet 75 mg PO DAILY 10/13/21 07/16/24 History colchicine 0.6 mg tablet 0.6 mg PO BID 10/13/21 07/16/24 History glimepiride 1 mg tablet 1 mg PO QAM 10/13/21 07/16/24 History losartan 50 mg tablet 50 mg PO BID 10/13/21 07/16/24 History propranolol 80 mg tablet 80 mg PO Q12H 10/13/21 07/16/24 History zolpidem 5 mg tablet 5 mg PO QHS PRN insomnia 10/13/21 07/16/24 History amlodipine 5 mg tablet 5 mg PO QAM 07/16/24 07/16/24 History cyanocobalamin (vitamin B-12) 1,000 mcg PO DAILY 07/16/24 07/16/24 History 1,000 mcg capsule diclofenac sodium 75 mg 75 mg PO BID 07/16/24 07/16/24 History tablet,delayed release losartan 100 mg tablet 100 mg PO QAM 07/16/24 07/16/24 History fqkzpbok-zjlwvmfi-ayzsh acid 400 1 tablet PO DAILY 07/16/24 07/16/24 History mcg-vit K 20 mcg-lycop 300 mcg tablet (One-A-Day Men's Multivitamin) pioglitazone 30 mg tablet 30 mg PO DAILY 07/16/24 07/16/24 History semaglutide 2 mg/dose (8 mg/3 mL) 2 mg subcut WEEKLY 07/16/24 07/16/24 History subcutaneous pen injector (Ozempic) aspirin 81 mg tablet,delayed 81 mg PO BID 14 days #28 tabs 08/09/24 Rx release oxycodone-acetaminophen 5 mg-325 1 - 2 tablet PO Q4-6H PRN pain 7 08/09/24 Rx mg tablet days #30 tabs prednisone 5 mg tablet 5 mg PO DAILY 3 weeks #21 tabs 08/09/24 Rx Laboratory Tests 08/09/24 08/09/24 07:09 07:11 POC Capillary Glucose 121 H mg/dl (65-105) Blood Type Pending Antibody Screen Pending Patient hx anesthesia problems: none Family hx anesthesia problems: none Results Review: All pre-operative results and documents have been reviewed as part of the pre-operative evaluation. [facility]LY [facility] Past Medical History Medical History (Updated 08/09/24 @ 07:43 by Burton Qureshi MD) CKD (chronic kidney disease) Obesity JOE (obstructive sleep apnea) BPH (benign prostatic hyperplasia) Adenomatous colon polyp Heart attack (~2020) Gastric ulcer Hypertension Coronary artery disease High cholesterol Type 2 diabetes mellitus Surgical History Surgical History History of coronary artery stent placement Social History Social History Smoking status: Never smoker Additional smoking assessment comments: DENIES ANY FORM OF TOBACCO USE Alcohol intake: current Drinks per week: 7 Alcohol use details: WINE Living arrangements: with family Spiritual care concerns: No Anes - Eval Final PreProcedure Day of Procedure 08/09/24 07:37 Patient weight: obese Heart: regular rate and rhythm Lungs: clear to auscultation Airway: Mallampati scale class III Neurological: alert and oriented Last oral intake: >/= 8 hours ASA classification: III Emergent: no Anesthetic plan: proceed Anesthesia type and monitoring: general LMA and standard monitoring Results Review: All pre-operative results and documents have been reviewed as part of the pre-operative evaluation. Informed Consent: The patient's anesthetic plan and its attendant risks including DE, bradycardia or other arrhythmias, and benefits were discussed with the patient/family/POA. Questions were solicited and answers provided to the satisfaction of the patient/family/POA.
[2024-08-09] MEDS: TRANEXAMIC ACID 1,000 MG/10 ML AMPUL 1000 MG IV PUSH (07:50)
--- NOTE | 2024-08-09 08:14 | WPDHPUPDATE1 ---
History and Physical Update Update Date/Time: 08/09/24 08:14 History and Physical has been reviewed, including an updated exam of the patient. There are NO changes in the patient's condition. Risks, benefits, and alternatives have been discussed and questions answered. Patient agrees to proceed with procedure.
[2024-08-09] MEDS: ceFAZolin 2 GM/D5W 50 ML 2 GM/50 ML BAG IVPB ×2 (08:23→17:06)
[2024-08-09] MEDS: SODIUM CHLORIDE 0.9% IV 37.7 ML, MORPHINE SULFATE INJ (*CRX) 2 MG, ROPivacaine HCL 1% 2... INFILTRATE (09:08)
--- NOTE | 2024-08-09 10:23 | P.OP_ITS ---
Procedure Note - Detailed Date of Procedure 08/09/24 Pre-op Diagnosis Left knee degenerative arthritis. Post-op Diagnosis Same Procedure Performed Calipered, kinematically aligned total knee replacement left knee. Surgeon Roni Eldridge MD Docent Coordinator Lianna Edmondson PA-C Anesthesia General Findings According to the calipered kinematic alignment principles, the knee was balanced by the following verification checks incorporating 6 caliper measurements, using an insert goniometer to select the insert thickness, and adjusting the tibial resection following the kinematic alignment algorithm (see figure 160.10 published in [employer] chapter on kinematic alignment total knee a rthroplasty.) The steps verified the femoral and tibial components were kinematically aligned coincident to the patient's pre arthritic joint lines, which closely restored the [place] tibial compartment forces and ligament laxities without ligament release. The [employer] knee, designed specifically for kinematic alignment, fit optimally. The record of verification checks were documented and scanned into the chart. Distal Femoral Resection: Distal Medial 6 mm(cartilage worn), Distal Lateral 9mm. 1mm sugey placed. Target thickness of 8mm Unworn, 6mm Worn (No Cartilage). Posterior Femoral Resection: Posterior Medial 7 mm, Posterior Lateral 7 mm. Target thickness of 7mm Unworn, 5mm Worn (No Cartilage). Excellent bone quality. Moderate synovitis. No releases. Description of Procedure General anesthesia was administered. A well-padded tourniquet was placed high on the thigh. The limb was prepped and draped in the usual sterile fashion. The limb was exsanguinated and the tourniquet inflated to 300 mmHg. A longitudinal incision was created over the midline of the knee. Sharp dissection was taken through subcutaneous tissues. Electrocautery was used for hemostasis. A trivector approach to the knee joint was performed. The ACL, anterior horns of the menisci, and fat pad were excised, and a subperiosteal dissection was carried along the posterior medial border of the tibia. The thickness of the [place] patella was measured with a caliper. The patella was resected using the oscillating saw. The best fitting anatomic patella button was selected. The fixation holes were drilled. When the patella and patella buttons combined thickness was thicker than the [place] patella, the patella was recut. Starting midway between the top of the notch in the anterior femoral cortex, I drilled a 9 mm diameter hole parallel to the anterior cortex to minimize flexion of the femoral component and promote patella tracking. I verified the existence of a 5-10 mm bone bridge between the posterior aspect of the hole and the anterior limit of the intercondylar notch. An intraosseous positioning natasha was inserted 10 cm into the femur perpendicular to the distal joint line and parallel to the anterior cortex. I used a distal femoral referencing guide that compensated 2 mm when the cartilage was worn on the distal medial femoral condyle, and 2 mm when the cartilage was worn on the distal lateral femoral condyle. The basis for setting the distal and posterior femoral resection guide is knowing that the varus and valgus grade II to IV Kellegren-Rodney osteoarthritic knees have negligible bone wear at 0? and 90? and that the mean full-thickness cartilage wear approximates 2 mm. I measured the thickness of distal femoral resections with a caliper to +/- 0.5 mm. The thickness of each resection was adjusted to match the thickness of the respective condyle of the femoral component within 0.5 mm of target after compensating for cartilage wear and kerf. When the distal resection was 1-2 mm too thin, a recut guide was used to adjust the cut. When the distal resection was too thick, a 1 or 2 mm thick washer was fixed to the back of the 4-in-1 chamfer block to sugey a corrective gap between the femoral component and distal femur. I set posterior femoral referencing guide at 0? orientation to position the pin holes for the 4 in 1 chamfer block. The sendy wing measured the width of the distal femoral resection and selected the size of the 4 in 1 chamfer block and femoral component. The AP sizer confirmed the size. I measured the thickness of the posterior femoral resections with a caliper before making the anterior and chamfer cuts. I adjusted the thicknesses of each resection to match the thickness of the respective condyle of the femoral component within +/-0.5 mm after compensating for cartilage wear and curve. When a posterior resection femoral resection was 1-2 mm too thick or thin a corrective correction was made by shifting or rotating the 4 in 1 chamfer block as needed. The chamfer block was secured in the correct position with compression screws. The anterior and chamfer femoral resections were made. These caliper measurements and corrections verified that the femoral component was set coincident with the patient's pre-arthritic distal and posterior femoral joint lines. I removed all the medial and lateral femoral and tibial osteophytes to restore the pre arthritic length of the medial and lateral collateral ligaments. I harriet AP lines along the major axis of the lateral tibial plateau in between the tibial spines which identified the flexion extension plane of the knee. A conventional extramedullary tibial resection guide was applied to the ankle. An sendy wing was placed medially in the saw slot. The varus valgus angle of the tibial resection guide was adjusted until the guide paralleled the proximal tibial articular surface after compensating for cartilage and bone wear. The slope of flexion extension angle of the tibial resection guide was adjusted until the sendy wing paralleled the slope of the medial tibia after compensating for wear. The AP axis of the tibial resection guide was adjusted parallel to the two lines. The proximal tibia was resected, partially releasing the insertion of the posterior cruciate ligament. The thickness of the medial and lateral lateral tibial condyle was measured at the base of the tibial spines. I visually verified the slope of the medial border of the resection was parallel to the patient's pre arthritic slope after compensating for cartilage and bone wear. I removed the remnants of the posterior horns of the menisci and posterior osteophytes and cauterized the inferior lateral genicular vessels. The Aquamantys bipolar device was also used to for additional hemostasis. When the knee had a preoperative flexion contracture of 20? or more I teased the capsule off the posterior femur with a curved 3 quarter-inch osteotome. I administered the posterior femoral periosteal injection by delivering 10 cc using a 20 gauge spinal needle at the most medial and 10 cc at the most lateral femoral spur minna face which reduced the risk of injury to the posterior neurovascular structures. I followed 6 options in a decision tree to fine tune the varus valgus and posterior slope orientation of the tibial component to restore the patient's pre arthritic tibial joint line and limb alignment. First, I adjusted the varus- valgus orientation of the proximal tibia resection working in 1 degree to 2 degree increments until there was negligible medial and lateral lift off of the distal femoral and proximal tibial resection from the spacer block during a varus valgus laxity assessment in extension. I selected the largest anatomic shape trial tibial base plate that fit within the cortical boundary of the proximal tibial resection. The base plate was best fit parallel to the cortical boundary which set the Internal-external orientation of the anterior to posterior and medial to lateral positions. The best fit method set the AP axis of the tibial base plate and insert parallel to the flexion extension plane of the pre arthritic knee. I pinned the trial tibial base plate, prepared the cruciate slot, and fixed the base plate to the tibia with the cruciate stem. I inserted the trial femoral component. The knee was placed in full extension. Varus valgus laxity is of the knee with trial components were assessed. When asymmetric laxity was observed a 1-2 degree varus or valgus recut guide was used to fine tune the tibial resection until the laxity was 1 degree or less in full extension like the [place] knee. The following steps determined the optimal insert thickness within +/-1 mm. First I inserted an insert goniometer that matched the thickness of the spacer block. I reduced the patella and then with the knee in maximum extension, I verified the knee hyperextended a few degrees and had negligible varus valgus laxity, like the pre arthritic knee. Next, I measured the external tibial orientation which was the angle the insert goniometer intersected the sagittal line on the medial condyle of the femoral trial component. Then with the knee in 15-30 degrees flexion I verified a 3-4 mm gap in the lateral compartment and no gap in the medial compartment during a 2nd varus valgus laxity test. Next, I placed the knee in 90? of flexion and the foot resting on the operating table and measured the internal tibial orientation. I repeated the steps until I identified the insert thickness that provided the highest external tibia orientation in extension and the highest internal tibial orientation at 90? flexion without anterior lift-off of the insert from the tibial base plate. The insert with this thickness was implanted. I applied a posterior drawer test with the tibia distracted by gravity and verified no posterior subluxation of the tibia relative to the femur. The patella remained centered on the trochlea and tracked well throughout the entire arc of flexion and extension. I used pulse lavage to clean the bony surfaces of debris and dried bone. I cemented the tibial, femoral, and patellar components using 1 bag of methylmethacrylate with Gentamycin, then rechecked the stability at full extension, 15-30 degrees, and 90? flexion and verified sabianist of the entire arc of motion of the knee. The circulating nurse confirmed the sponge and needle counts were correct. I used pulse lavage to rinse the joint and wound. The extensor mechanism was closed with interrupted #1 Vicryl suture and #1 running Stratafix suture. The subcutaneous layer was closed with interrupted #1 Vicryl suture followed by 2-0 Stratafix and 3-0 Stratafix. Steri-Strips placed on the skin. Silver impregnated occlusive dressing applied to the wound. A light gauze wrap and Yousuf bandage were placed. The patient was transferred to the recovery room in stable condition. There were no complications. Implants Medacta GMK spheriKA Femoral component SpheriKA size 5, tibial component size 5, vitamin-E flex insert, thickness 10mm, Anatomic patella implant size 3. Estimated Blood Loss 50 Tourniquet Time Total Tourniquet Time: 79 Drains No Pathology None sent Complications No immediate complications Condition Stable Disposition PACU [facility] Billing Surgery - Charge Forward: Surgery Billing
[2024-08-09] MEDS: LACTATED RINGERS 1,000 ML 30 ML IV CONT ×2 (10:43)
[2024-08-09 10:50] LABS: Glucose Point of Care 185 mg/dl (65-105)
[2024-08-09] MEDS: fentaNYL CITRATE INJ (*CRX) 100 MCG/2 ML VIAL 25 MCG IV PUSH ×2 (10:55→11:09)
--- NOTE | 2024-08-09 12:11 | SUR.PHASEI ---
1210- Patient meets PACU discharge criteria, unit bed unavailable at this time. Patient placed in extended recovery status.
[2024-08-09 13:09] LABS: Glucose Point of Care 135 mg/dl (65-105)
--- NOTE | 2024-08-09 13:52 | ADMGEN ---
This patient, Arian Shabazz, was admitted to [facility] Surg Room 327-01. Patient/family oriented to hospital policies and general routines including ID bracelet, bed and alarms, visiting hours, pain management, procedures, bathroom and other care routines, personal items, smoking policy, room service/diet, and visiting hours. Information on how to activate the Rapid Response Team has been discussed. Patient/Family are encouraged to report perceived risks to care and to ask questions if they do not understand what they are told or what they should do.
[2024-08-09 14:08] LABS: Basophils Percent Auto 0.3 % (0.2-1.2); Eosinophils Percent Auto 0.1 % (0-4.4); Hematocrit 35.4 % (42.0-52.0); Immature Granulocyte Absolute 0.07 K/mm3 (0.00-0.031); Immature Granulocyte Percent A 0.7 % (0-0.5); Lymphocytes Absolute Auto 1.43 K/mm3 (0.9-3.2); Lymphocytes Percent Auto 13.6 % (18.3-44.2); Mean Corpuscular HGB Conc 33.9 g/dl (32-36); Mean Corpuscular Hemoglobin 31.3 pg (26-34); Mean Corpuscular Volume 92.2 fl (80-100); Mean Platelet Volume 8.8 fl (7.4-10.4); Monocytes Absolute Auto 0.6 K/mm3 (0.1-0.6); Monocytes Percent Auto 5.9 % (2.6-8.5); Neutrophils Absolute Auto 8.4 K/mm3 (1.3-6.7); Neutrophils Percent Auto 79.4 % (45.5-73.1); Platelet Count Result 201 k/mm3 (150-375); Red Blood Count 3.84 M/mm3 (4.6-6.20); Red Cell Distribution Width 13.7 % (11.5-14.5); White Blood Count 10.5 K/mm3 (4.5-10.0)
[2024-08-09] MEDS: ACETAMINOPHEN 325 MG TABLET 650 MG PO ×2 (14:15→17:13)
[2024-08-09 14:22] LABS: Anion Gap 11 mmol/L (4-12); Blood Urea Nitrogen 31 mg/dL (9-20); Calcium 8.5 mg/dL (8.4-10.2); Carbon Dioxide 30 mmol/L (22-30); Chloride 98 mmol/L (98-107); Estimated CRCL calculation 54 ml/min; Estimated Glomerular Filt Rate 52; Glucose 145 mg/dL (65-110); Potassium 4.1 mmol/L (3.4-5.0); Sodium 139 mmol/L (137-145)
[2024-08-09 17:06] LABS: Glucose Point of Care 180 mg/dl (65-105)
[2024-08-09] MEDS: DICLOFENAC SOD 75 MG TABLET.EC PO (17:07)
[2024-08-09] MEDS: SENNA/DOCUSATE SODIUM TABLET 2 TAB PO (17:07)
[2024-08-09] MEDS: ATORVASTATIN 40 MG TABLET PO (20:40)
[2024-08-09] MEDS: CITALOPRAM HYDROBROMIDE 10 MG TABLET PO (20:40)
[2024-08-09] MEDS: ASPIRIN 81 MG ENTERIC TABLET PO (20:40)
[2024-08-09] MEDS: FAMOTIDINE 20 MG TABLET PO (20:40)
[2024-08-09 22:04] LABS: Glucose Point of Care 99 mg/dl (65-105)
[2024-08-09] MEDS: oxyCODONE/ACETAMINOPHEN (*CRX) 5-325 MG TABLET 1 TABLET PO (22:21)
[2024-08-10] MEDS: ACETAMINOPHEN 325 MG TABLET 650 MG PO ×2 (00:05→05:30)
[2024-08-10] MEDS: ceFAZolin 2 GM/D5W 50 ML 2 GM/50 ML BAG IVPB (00:06)
[2024-08-10] MEDS: oxyCODONE/ACETAMINOPHEN (*CRX) 10-325 MG TABLET 1 TAB PO (00:42)
[2024-08-10 02:36] VITALS: BP 161/80; PULSE 75; RESP 18; TEMP 36.4; O2SAT 96
[2024-08-10 06:15] LABS: Basophils Percent Auto 0.5 % (0.2-1.2); Eosinophils Absolute Auto 0.1 K/mm3 (0-0.3); Eosinophils Percent Auto 0.8 % (0-4.4); Hematocrit 34.1 % (42.0-52.0); Hemoglobin 11.6 g/dL (14.0-18.0); Immature Granulocyte Absolute 0.02 K/mm3 (0.00-0.031); Immature Granulocyte Percent A 0.3 % (0-0.5); Lymphocytes Absolute Auto 2.43 K/mm3 (0.9-3.2); Lymphocytes Percent Auto 30.5 % (18.3-44.2); Mean Corpuscular Hemoglobin 31.8 pg (26-34); Mean Corpuscular Volume 93.4 fl (80-100); Mean Platelet Volume 8.9 fl (7.4-10.4); Monocytes Absolute Auto 0.8 K/mm3 (0.1-0.6); Monocytes Percent Auto 10.3 % (2.6-8.5); Neutrophils Absolute Auto 4.6 K/mm3 (1.3-6.7); Neutrophils Percent Auto 57.6 % (45.5-73.1); Platelet Count Result 198 k/mm3 (150-375); Red Blood Count 3.65 M/mm3 (4.6-6.20); Red Cell Distribution Width 13.8 % (11.5-14.5)
[2024-08-10 06:29] LABS: Anion Gap 9 mmol/L (4-12); Blood Urea Nitrogen 28 mg/dL (9-20); Carbon Dioxide 28 mmol/L (22-30); Chloride 98 mmol/L (98-107); Estimated CRCL calculation 55 ml/min; Estimated Glomerular Filt Rate 54; Glucose 154 mg/dL (65-110); Potassium 3.6 mmol/L (3.4-5.0); Sodium 135 mmol/L (137-145)
[2024-08-10 08:19] LABS: Glucose Point of Care 181 mg/dl (65-105)
[2024-08-10] MEDS: GLIMEPIRIDE 1 MG TABLET PO (09:29)
[2024-08-10] MEDS: FAMOTIDINE 20 MG TABLET PO (09:30)
[2024-08-10] MEDS: SENNA/DOCUSATE SODIUM TABLET 2 TAB PO (09:30)
[2024-08-10] MEDS: DICLOFENAC SOD 75 MG TABLET.EC PO (09:30)
[2024-08-10] MEDS: amLODIPine BESYLATE 5 MG TABLET PO (09:30)
[2024-08-10] MEDS: polyethylene glycoL 3350 17 GM POWD.PACK PO (09:30)
[2024-08-10] MEDS: CHLORTHALIDONE 25 MG TABLET PO (09:30)
[2024-08-10] MEDS: LOSARTAN POTASSIUM 100 MG TABLET PO (09:30)
[2024-08-10] MEDS: PIOGLITAZONE HCL 30 MG TABLET PO (09:30)
== END 2024-08-10 10:05 | disposition home or self-care (01) ==
LOC: ANHSURGERY 07:33 → ANH3MEDSUR 12:53
PROVIDERS: Physician Assistant Surgical; PCP Internal Medicine; Visit Provider Orthopaedic Surgery
PROC: (CPT 27447; principal; 2024-08-09 08:30)
DX: M17.12 Unilateral primary osteoarthritis, left knee (principal); E11.9 Type 2 diabetes mellitus without complications; I25.10 Atherosclerotic heart disease of native coronary artery without angina pectoris; E78.5 Hyperlipidemia, unspecified; E66.9 Obesity, unspecified; Z68.34 Body mass index [BMI] 34.0-34.9, adult
CPT/HCPCS: 27447; 36415; 73560; 80048; 82948; 85025; 86850; 86900; 86901; 97110; 97116; 97161; 97165; 97530; 97535; C1776; A9270; C1713; J0171; J0690; J1885; J2003; J2250; J2270; J2405; J2704; J2795; J3010; J7120

== ENCOUNTER 2025-05-01 08:49 | Outpatient (CLI) | payer MEDICARE, SELFPAY ==
--- NOTE | ~2025-05-01 | XR_ITS ---
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 Findings: No acute fracture or malalignment. No significant degenerative changes. Soft tissues unremarkable. Impression: No acute fracture or malalignment. Reviewed, dictated and finalized at location P. [employer]SE OPERATOR CHIEF Impression: No acute fracture or malalignment.
== END 2025-05-01 08:50 | disposition home or self-care (01) ==
LOC: ANHIMG 08:51
PROVIDERS: PCP Internal Medicine; Visit Provider Orthopaedic Surgery
DX: M25.551 Pain in right hip (principal)
CPT/HCPCS: 73502